=== PATIENT | male | born 1960 | race Caucasian/White ===

== ENCOUNTER 2023-03-30 14:14 | Outpatient (OUT) | payer BC, SELFPAY ==
[2023-03-30 14:40] LABS: Basophils Absolute Auto 0.1 10^3/uL (0.0-0.1); Basophils Percent Auto 0.7 % (0.2-2.0); Eosinophils Absolute Auto 0.1 10^3/uL (0.0-0.7); Eosinophils Percent Auto 1.6 % (0.9-7.0); Hemoglobin 13.5 g/dL (14.0-18.0); Immature Granulocytes Abs Auto 0.01 10^3/uL (0.00-0.03); Immature Granulocytes Pct Auto 0.1 % (0.0-0.5); Mean Corpuscular HGB Conc 33.8 g/dL (29.9-35.2); Mean Corpuscular Hemoglobin 30.4 pg (25.9-34.0); Mean Corpuscular Volume 90.1 fL (80.0-94.0); Monocytes Absolute Auto 0.8 10^3/uL (0.3-0.8); Monocytes Percent Auto 9.9 % (1.7-12.0); Neutrophils Absolute Auto 4.7 10^3/uL (1.4-6.5); Neutrophils Percent Auto 61.7 % (43.0-75.0); Platelet Count 254 10^3/uL (150-450); Red Blood Count 4.44 10^6/uL (4.70-6.10); Red Cell Distribution Width 12.7 % (11.0-15.0); White Blood Count 7.6 10^3/uL (4.0-11.0)
[2023-03-30 14:59] LABS: Estimated Average Glucose 154 mg/dL
[2023-03-30 15:09] LABS: Microalbumin Urine Random <1.3 mg/dL (<=30.0)
[2023-03-30 15:31] LABS: Alanine Aminotransferase 32 U/L (16-63); Albumin Level 3.6 g/dL (3.4-5.0); Alkaline Phosphatase 64 U/L (46-116); Anion Gap 11.8; Aspartate Amino Transferase 29 U/L (15-37); Bilirubin Direct 0.1 mg/dL (0.0-0.2); Bilirubin Total 0.6 mg/dL (0.2-1.0); Calcium 8.9 mg/dL (8.5-10.1); Carbon Dioxide 28.1 mmol/L (21.0-32.0); Chloride 103 mmol/L (98-107); Chol HDL Ratio 2.8; Cholesterol 149 mg/dL (<=200); Estimated GFR (African America >60 (>=60); Estimated GFR (Non-African Ame >60 (>=60); Globulin 3.7 g/dL; Glucose 93 mg/dL (74-106); HDL Cholesterol 54 mg/dL (40-60); Potassium 3.9 mmol/L (3.5-5.1); Sodium 139 mmol/L (136-145); Thyroid Stimulating Hormone 2.301 uIU/mL (0.358-3.740); Total Protein 7.3 g/dL (6.4-8.2); Triglycerides 75 mg/dL (<=150)
[2023-03-30 15:37] LABS: Prostate Specific Antigen Scrn 1.15 ng/mL (<=4.00)
== END 2023-03-30 14:15 | disposition home or self-care (01) ==
PROVIDERS: PCP Family Medicine; Visit Provider Family Medicine
DX: Z00.00 Encounter for general adult medical examination without abnormal findings (principal); E11.65 Type 2 diabetes mellitus with hyperglycemia; Z12.5 Encounter for screening for malignant neoplasm of prostate
CPT/HCPCS: 36415; 80048; 80061; 80076; 82043; 83036; 84443; 85025; G0103

== ENCOUNTER 2023-06-01 22:40 | Emergency (ER) | payer BC, SELFPAY ==
[2023-06-01 22:52] VITALS: BP 137/67; PULSE 81; RESP 22; TEMP 36.8; O2SAT 91; BMI 27.9
--- NOTE | 2023-06-01 23:05 | XR_ITS ---
[address] [address] Patient Name: JUAN C SANDY MRN: [id number] date: 1960 Sex: M Assigned Patient Location: ER Current Patient Location: ER Accession/Order Number: [id number] Exam Date: 06/01/2023 23:15 Report Date: 06/01/2023 23:50 At the request of: JOHN NAIR Procedure: XR chest 1V EXAM: XR chest 1V HISTORY: cough COMPARISON: None. TECHNIQUE: Single AP radiograph of the chest FINDINGS: No pneumothorax, pleural effusion or consolidation. Normal heart size. No acute osseous abnormality. XR/XR chest 1V IMPRESSION: No acute cardiopulmonary process. Electronically authenticated by: ANITA VAZQUEZ Date: 06/01/2023 23:50
--- NOTE | 2023-06-01 23:07 | ED_ITS ---
HPI - URI/Sore Throat General Chief Complaint: Upper Respiratory Infection Stated Complaint: RESPIRATORY ISSUES Time Seen by Provider: 06/01/23 22:57 Source: patient and family Limitations: no limitations History of Present Illness HPI Narrative: cough. Repetitive cough. Coughing so much his abdomen is sore. Has coughing jags. Does not smoke cigarettes. Not short of breath. No fever or nausea/vomiting. Seen at Urgent care and COVID 19 neg MD elicited complaint: Reports cough Related Data Home Medications Medication Instructions Recorded Confirmed albuterol sulfate 90 mcg/actuation inhalation 06/01/23 aerosol inhaler insulin NPH-regular 70-30 U-100 subcut 06/01/23 insulin 100 unit/mL subcutaneous pen (Humulin 70/30 U-100 KwikPen) methylprednisolone 4 mg tablets in mg 06/01/23 a dose pack semaglutide 7 mg tablet (Rybelsus) mg PO 06/01/23 vardenafil 20 mg tablet mg 06/01/23 Allergies Allergy/AdvReac Type Severity Reaction Status Date / Time No Known Drug Allergies Allergy Verified 06/01/23 23:02 Review of Systems ROS Status of ROS 10 or more systems reviewed and unremark able except as noted in history and below PFSH PFS Social History Smoking status: Never smoker Exam Constitutional Vital Signs, click to edit/add: Last Vital Signs Temp 98.0 F 06/02/23 00:39 Pulse 73 06/02/23 00:39 Resp 16 06/02/23 00:39 BP 112/66 06/02/23 00:39 Pulse Ox 93 L 06/02/23 00:39 O2 Del Method Room Air 06/01/23 22:52 Common normals: no apparent distress, average body habitus, oriented x3, no limitations, healthy appearing and alert Eye Common normals: EOMs intact bilaterally and conjunctivae normal Respiratory Common normals: normal respiratory effort, no retractions, no use of accessory muscles and clear to auscultation bilaterally Cardio Common normals: regular rate, regular rhythm, S1 normal heart sound and S2 normal heart sound GI Common normals: Normal to inspection, nondistended, normoactive bowel sounds present, soft to palpation and non-tender Extremity Common normals: normal to inspection and full ROM Neuro Common normals: oriented x3, CN's II-XII intact bilaterally, moves all extremities, no focal motor deficits and no sensory deficits noted Psych Appearance: grossly normal Course Vital Signs Vital signs: Vital Signs Temperature 98.3 F 06/01/23 22:52 Pulse Rate 81 06/01/23 22:52 Respiratory Rate 22 06/01/23 22:52 Blood Pressure 137/67 06/01/23 22:52 Pulse Oximetry 91 L 06/01/23 22:52 Oxygen Delivery Method Room Air 06/01/23 22:52 Temperature 98.0 F 06/02/23 00:39 Pulse Rate 73 06/02/23 00:39 Respiratory Rate 16 06/02/23 00:39 Blood Pressure 112/66 06/02/23 00:39 Pulse Oximetry 93 L 06/02/23 00:39 Oxygen Delivery Method Room Air 06/01/23 22:52 MDM - URI/Sore Throat MDM Narrative Medical decision making narrative: patient presents complaining of repetitive coughing despite using inhaler provider by urgent care. Swab at urgent care neg. Patient in no distress and has dry cough. Abdomen sore from coughing. cxray clear. nasal swab positive for RSV. CT chest with multiple nodules that will require follow up . Patient informed of the importance of follow up. Cough improved after solumedrol. Discharged home with a prescription for prednisone and advised to follow up with his doctor Lab Data Labs: Lab Results 06/01/23 Range/Units 23:15 WBC 12.6 H (4.0-11.0) 10^3/uL RBC 4.13 L (4.70-6.10) 10^6/uL Hgb 12.4 L (14.0-18.0) g/dL Hct 37.8 L (42.0-54.0) % MCV 91.5 (80.0-94.0) fL MCH 30.0 (25.9-34.0) pg MCHC 32.8 (29.9-35.2) g/dL RDW 12.3 (11.0-15.0) % Plt Count 205 (150-450) 10^3/uL MPV 9.2 L (9.5-13.5) fL Neut % (Auto) 74.2 (43.0-75.0) % Lymph % (Auto) 12.4 L (20.5-60.0) % [place] % (Auto) 12.9 H (1.7-12.0) % Eos % (Auto) 0.0 L (0.9-7.0) % Baso % (Auto) 0.2 (0.2-2.0) % Neut # (Auto) 9.4 H (1.4-6.5) 10^3/uL Lymph # (Auto) 1.6 (1.2-3.8) 10^3/uL [place] # (Auto) 1.6 H (0.3-0.8) 10^3/uL Eos # (Auto) 0.0 (0.0-0.7) 10^3/uL Baso # (Auto) 0.0 (0.0-0.1) 10^3/uL Abs Immat Gran (auto) 0.04 H (0.00-0.03) 10^3/uL Imm/Tot Granulo (auto) 0.3 (0.0-0.5) % D-Dimer 0.95 H* (<=0.59) mg/L FEU Sodium 129 L (136-145) mmol/L Potassium 4.4 (3.5-5.1) mmol/L Chloride 96 L (98-107) mmol/L Carbon Dioxide 31.5 (21.0-32.0) mmol/L Anion Gap 5.9 BUN 18.0 (7.0-18.0) mg/dL Creatinine 1.23 (0.70-1.30) mg/dL Est GFR ( Amer) >60 (>=60) Est GFR (Non-Af Amer) 60 (>=60) BUN/Creatinine Ratio 14.6 Glucose 416 H (74-106) mg/dL Calcium 8.1 L (8.5-10.1) mg/dL Troponin I High Sens 7.4 (4.0-76.1) pg/mL NT-Pro-B Natriuret Pep 183.0 (<=900.0) pg/mL Adenovirus (PCR) Not detected (NOT DETECTE) C. pneumoniae DNA (PCR) Not detected (NOT DETECTE) Coronavirus Type OC43 Not detected (NOT DETECTE) Coronavirus Type HKU1 Not detected (NOT DETECTE) Coronavirus Type 229E Not detected (NOT DETECTE) Coronavirus Type NL63 Not detected (NOT DETECTE) Human Metapneumovir PCR Not detected (NOT DETECTE) M. pneumoniae (PCR) Not detected (NOT DETECTE) Parainfluenza PCR Not detected (NOT DETECTE) Parainfluenza 2 (PCR) Not detected (NOT DETECTE) Parainfluenza 3 (PCR) Not detected (NOT DETECTE) Parainfluenza 4 (PCR) Not detected (NOT DETECTE) RSV (RT-PCR) Detected A* (NOT DETECTE) Entero/Rhino (PCR) Not detected (NOT DETECTE) SARS-CoV-2 (PCR) Not detected (NOT DETECTE) Bordetella pertussis (PCR) Not detected (NOT DETECTE) B parapertussis DNA PCR Not detected (NOT DETECTE) Influenza Type A (PCR) Not detected (NOT DETECTE) Influenza Type B (PCR) Not detected (NOT DETECTE) Imaging Data Chest x-ray: Radiologist's impression: [phone] Patient Name: JUAN C SANDY MRN: [id number] date: 1960 Sex: M Assigned Patient Location: ER Current Patient Location: ER Accession/Order Number: [id number] Exam Date: 06/01/2023 23:59 Report Date: 06/02/2023 01:08 At the request of: JOHN NAIR Procedure: CT angio chest EXAM: CHEST WITH IV CONTRAST DATE OF EXAM: 06/01/2023 11:59 PM EST HISTORY: Shortness of breath. Elevated D-dimer. Elevated d-dimer 63-year-old male COMPARISON: This x-ray 06/01/2023 TECHNIQUE: Multiple axial images are taken from the level of the thyroid down through the upper abdomen with the use of IV contrast. Images are then reconstructed in the sagittal and coronal planes. This exam was performed according to our departmental dose-optimization program which includes use of Automated Exposure Control, adjustment of the mA and/or kV according to patient size and/or use of iterative reconstruction technique. Postprocessing was performed as per hospital protocol: Maximum intensity projection (MIPs) Contrast Used: 100 ml of Omnipaque 350 FINDINGS: Distribution Estimator: Unremarkable. Lines and Tubes: None. Lungs: Lungs are adequately expanded. There are multiple nodules demonstrated throughout the right lung with the largest seen in the right upper lobe measuring approximately 10 mm on axial image 32 of series 5. On axial image 44 series 5 there is a 13.5 mm tom-fissural ground glass nodule. Left lung: There is a 15 mm pleural-based nodule in the left lower lobe. Pleura: Normal Thyroid: Normal Aorta: Normal. Pulmonary artery: Pulmonary artery measures within normal. No pulmonary embolus allowing for bolus timing and mixing artifact Heart: Heart measures mildly enlarged with coronary artery calcification. Trachea/Bronchi: Well aerated. No intraluminal masses. Esophagus: Esophagus is within normal limits for the amount of distention. Lymph Nodes: Normal. Chest wall: Normal. Osseous Structures: Normal for patient's age. Subdiaphragm: Subdiaphragmatic abdominal organs included in the [id number] demonstrate fatty infiltration of an enlarged liver CT/CT angio chest IMPRESSION: 1. No CT evidence for acute pulmonary embolus. 2. Stable groundglass nodules are demonstrated bilaterally right greater than left. Please correlate for infectious etiology. Although one of these in the right upper lobe appears to be cavitating which may represent a malignancy versus infection. Differential diagnosis would include a fungal infection such as aspergillosis, lung carcinoma such as non-small cell lung cancer, mycobacterial infection such as TB, bacterial pneumonia and/or etiology such as Mariah's granulomatosis. Short-term follow-up after antibiotics with PET/CT scan and/or biopsy may help better delineate. 3. Cardiomegaly with coronary artery disease. 4. Hepatic steatosis with hepatomegaly. Electronically authenticated by: COMFORT DE OLIVEIRA Date: 06/02/2023 01:08 Dictated By: Comfort De Oliveira M.D. Signed By: 06/02/23 0111 DD/ 0108 TD/TT: Discharge Plan Discharge Chief Complaint: Upper Respiratory Infection Clinical Impression: Pulmonary nodule, RSV bronchiolitis Prescriptions / Home Meds: No Action methylprednisolone 4 mg tablets,dose pack albuterol sulfate 90 mcg/actuation HFA aerosol inhaler INHALATION vardenafil 20 mg tablet Humulin 70/30 U-100 KwikPen 100 unit/mL (70-30) insulin pen SUBCUT Rybelsus 7 mg tablet PO Instructions: Pulmonary Nodules (ED), RSV (Respiratory Syncytial Virus) (ED) Additional Instructions: follow up with Dr Justice next week Referrals: Jay Justice MD [Primary Care Provider] - 1 week
[2023-06-01] MEDS: METHYLPREDNISOLONE SOD SUCC PF 125 MG/2 ML VIAL IVP (23:20)
[2023-06-01 23:21] LABS: Basophils Percent Auto 0.2 % (0.2-2.0); Hematocrit 37.8 % (42.0-54.0); Hemoglobin 12.4 g/dL (14.0-18.0); Immature Granulocytes Abs Auto 0.04 10^3/uL (0.00-0.03); Immature Granulocytes Pct Auto 0.3 % (0.0-0.5); Lymphocytes Absolute Auto 1.6 10^3/uL (1.2-3.8); Lymphocytes Percent Auto 12.4 % (20.5-60.0); Mean Corpuscular HGB Conc 32.8 g/dL (29.9-35.2); Mean Corpuscular Volume 91.5 fL (80.0-94.0); Mean Platelet Volume 9.2 fL (9.5-13.5); Monocytes Absolute Auto 1.6 10^3/uL (0.3-0.8); Monocytes Percent Auto 12.9 % (1.7-12.0); Neutrophils Absolute Auto 9.4 10^3/uL (1.4-6.5); Neutrophils Percent Auto 74.2 % (43.0-75.0); Platelet Count 205 10^3/uL (150-450); Red Blood Count 4.13 10^6/uL (4.70-6.10); Red Cell Distribution Width 12.3 % (11.0-15.0); White Blood Count 12.6 10^3/uL (4.0-11.0)
[2023-06-01 23:23] LABS: Adenovirus NOT DETECTED (NOT DETECTE); Bordetella parapertussis NOT DETECTED (NOT DETECTE); Coronavirus 229E NOT DETECTED (NOT DETECTE); Coronavirus HKU1 NOT DETECTED (NOT DETECTE); Coronavirus NL63 NOT DETECTED (NOT DETECTE); Coronavirus OC43 NOT DETECTED (NOT DETECTE); Human Metapneumovirus NOT DETECTED (NOT DETECTE); Human Rhinovirus/Enterovirus NOT DETECTED (NOT DETECTE); Influenza A NOT DETECTED (NOT DETECTE); Influenza B NOT DETECTED (NOT DETECTE); Mycoplasma pneumoniae NOT DETECTED (NOT DETECTE); Parainfluenza Virus 1 NOT DETECTED (NOT DETECTE); Parainfluenza Virus 2 NOT DETECTED (NOT DETECTE); Parainfluenza Virus 3 NOT DETECTED (NOT DETECTE); Parainfluenza Virus 4 NOT DETECTED (NOT DETECTE); SARS-CoV-2 NOT DETECTED (NOT DETECTE)
[2023-06-01 23:45] LABS: Anion Gap 5.9; BUN Creatinine Ratio 14.6; Calcium 8.1 mg/dL (8.5-10.1); Carbon Dioxide 31.5 mmol/L (21.0-32.0); Chloride 96 mmol/L (98-107); Estimated GFR (African America >60 (>=60); Estimated GFR (Non-African Ame 60 (>=60); Glucose 416 mg/dL (74-106); Potassium 4.4 mmol/L (3.5-5.1); Sodium 129 mmol/L (136-145); Troponin I High Sensitivity 7.4 pg/mL (4.0-76.1)
[2023-06-01 23:47] LABS: D Dimer 0.95 mg/L FEU (<=0.59)
--- NOTE | 2023-06-01 23:48 | CT_ITS ---
The [address] [address] Patient Name: JUAN C SANDY MRN: [id number] date: 1960 Sex: M Assigned Patient Location: ER Current Patient Location: ER Accession/Order Number: [id number] Exam Date: 06/01/2023 23:59 Report Date: 06/02/2023 01:08 At the request of: JOHN NAIR Procedure: CT angio chest EXAM: CHEST WITH IV CONTRAST DATE OF EXAM: 06/01/2023 11:59 PM EST HISTORY: Shortness of breath. Elevated D-dimer. Elevated d-dimer 63-year-old male COMPARISON: This x-ray 06/01/2023 TECHNIQUE: Multiple axial images are taken from the level of the thyroid down through the upper abdomen with the use of IV contrast. Images are then reconstructed in the sagittal and coronal planes. This exam was performed according to our departmental dose-optimization program which includes use of Automated Exposure Control, adjustment of the mA and/or kV according to patient size and/or use of iterative reconstruction technique. Postprocessing was performed as per hospital protocol: Maximum intensity projection (MIPs) Contrast Used: 100 ml of Omnipaque 350 FINDINGS: Highway Safety Engineer: Unremarkable. Lines and Tubes: None. Lungs: Lungs are adequately expanded. There are multiple nodules demonstrated throughout the right lung with the largest seen in the right upper lobe measuring approximately 10 mm on axial image 32 of series 5. On axial image 44 series 5 there is a 13.5 mm tom-fissural ground glass nodule. Left lung: There is a 15 mm pleural-based nodule in the left lower lobe. Pleura: Normal Thyroid: Normal Aorta: Normal. Pulmonary artery: Pulmonary artery measures within normal. No pulmonary embolus allowing for bolus timing and mixing artifact Heart: Heart measures mildly enlarged with coronary artery calcification. Trachea/Bronchi: Well aerated. No intraluminal masses. Esophagus: Esophagus is within normal limits for the amount of distention. Lymph Nodes: Normal. Chest wall: Normal. Osseous Structures: Normal for patient's age. Subdiaphragm: Subdiaphragmatic abdominal organs included in the [id number] demonstrate fatty infiltration of an enlarged liver CT/CT angio chest IMPRESSION: 1. No CT evidence for acute pulmonary embolus. 2. Stable groundglass nodules are demonstrated bilaterally right greater than left. Please correlate for infectious etiology. Although one of these in the right upper lobe appears to be cavitating which may represent a malignancy versus infection. Differential diagnosis would include a fungal infection such as aspergillosis, lung carcinoma such as non-small cell lung cancer, mycobacterial infection such as TB, bacterial pneumonia and/or etiology such as Mariah's granulomatosis. Short-term follow-up after antibiotics with PET/CT scan and/or biopsy may help better delineate. 3. Cardiomegaly with coronary artery disease. 4. Hepatic steatosis with hepatomegaly. Electronically authenticated by: SHASHI DE OLIVEIRA Date: 06/02/2023 01:08
[2023-06-02 00:11] LABS: Respiratory Syncytial Virus DETECTED (NOT DETECTE)
[2023-06-02 00:39] VITALS: BP 112/66; PULSE 73; RESP 16; TEMP 36.7; O2SAT 93
== END 2023-06-02 01:38 | disposition home or self-care (01) ==
PROVIDERS: Emergency Provider Internal Medicine; PCP Family Medicine
DX: J21.0 Acute bronchiolitis due to respiratory syncytial virus (principal); R91.8 Other nonspecific abnormal finding of lung field; R06.02 Shortness of breath; Z79.899 Other long term (current) drug therapy; Z79.4 Long term (current) use of insulin; Z20.822 Contact with and (suspected) exposure to COVID-19
CPT/HCPCS: 0202U; 36415; 71045; 71275; 80048; 83880; 84484; 85025; 85378; 96374; 99285; J2930; Q9967

== ENCOUNTER 2023-11-07 15:51 | Outpatient (OUT) | payer BC, SELFPAY ==
[2023-11-07 16:29] LABS: Estimated Average Glucose 194 mg/dL; Glycohemoglobin A1C 8.4 % (4.5-6.2)
--- OUTSIDE RECORDS SUMMARY | 2023-11-07 16:31 | XMS_ITS | CCD ---
Author Organization [facility] Care Team Providers Care Coding Consultant Name Role Phone NO, PHYSICIAN Unavailable Unavailable Sultana Benson Unavailable Martha Granados Unavailable Martha Delgado Unavailable PACHECO HART Attending Unavailable NADERER, DR JAY Lawson Primary Care Unavailable HIGHLANDER, PACHECO Rivera Admitting Unavailable HIGHLANDER, PACHECO Rivera Attending Unavailable HIGHLANDER, PACHECO Rivera Admitting Unavailable NADERER, DR JAY Lawosn Primary Care Unavailable HIGHLANDER, PACHECO Rivera Attending Unavailable HIGHLANDER, PACHECO Rivera Admitting Unavailable NADERER, DR JAY Lawson Primary Care Unavailable WARFIELD, DR NICKI Mazariegos Consulting Unavailable HIGHLANDER, PACHECO Rivera Consulting Unavailable NADERER, DR JAY Lawson Primary Care Unavailable HIGHLANDER, PACHECO Rivera Admitting Unavailable HIGHLANDER, PACHECO Rivera Attending Unavailable HIGHLANDER, PACHECO Rivera Attending Unavailable HIGHLANDER, PETER Miguel Admitting Unavailable NADERER, DR JAY Lawson Primary Care Unavailable NADERER, DR JAY Lawson Primary Care Unavailable Denny Sheldon Consulting Unavailable HIGHLANDER, PACHECO Rivera Attending Unavailable HIGHLANDER, PACHECO Rivera Admitting Unavailable HIGHLANDER, PACHECO Rivera Consulting Unavailable HIGHLANDER, PACHECO Rivera Attending Unavailable HIGHLANDER, PETER Miguel Admitting Unavailable NADERER, DR JAY Lawson Primary Care Unavailable NADERER, DR JAY Lawson Primary Care Unavailable HIGHLANDER, PACHECO Rivera Attending Unavailable HIGHLANDER, PACHECO Rivera Admitting Unavailable HIGHLANDER, PACHECO Rivera Consulting Unavailable NADERER, DR JAY Lawson Primary Care Unavailable NADERER, DR JAY Lawson Consulting Unavailable NADERER, DR JAY Lawson Attending Unavailable NADERER, DR JAY Lawson Admitting Unavailable NADERER, DR JAY Lawson Primary Care Unavailable NADERER, DR JAY Lawson Consulting Unavailable NADERER, DR JAY Lawson Attending Unavailable NADERER, DR JAY Lawson Admitting Unavailable NADERER, DR JAY Lawson Primary Care Unavailable NADERER, DR JAY Lawson Consulting Unavailable NADERER, DR JAY Lawson Attending Unavailable ABIDA, DR JAY Lawson Admitting Unavailable TANNER, PACHECO Rivera Attending Unavailable PACHECO HART Admitting Unavailable ABIDA, DR JAY Lawson Primary Care Unavailable TANNER, PACHECO Rivera Consulting Unavailable ABIDA, DR JAY Lawson Primary Care Unavailable TANNER, PACHECO Rivera Admitting Unavailable Denny Sheldon Consulting Unavailable TANNER, PACHECO Rivera Attending Unavailable TANNER, PACHECO Rivera Consulting Unavailable ANABEL PÉREZ Consulting Unavailable MARIANA BUCKLEY Consulting Unavailable TANNER, PACHECO Rivera Attending Unavailable ABIDA, DR JAY Lawson Primary Care Unavailable TANNER, PACHECO Rivera Admitting Unavailable TANNER, PACHECO Rivera Attending Unavailable ABIDA, DR JAY Lawson Primary Care Unavailable [facility], PACHECO Rivera Admitting Unavailable Jay Tai MD Primary Care Provider JAY TAI Attending Unavailable ABIDA, JAY Attending Unavailable Medications Current Medications Medication Drug Class(es) Dates Sig (Normalized) Sig (Original) [id number] actuat albuterol 0.09 mg/actuat metered dose inhaler (1 source) beta2-Adrenergic Agonist Start: 3 take 2 puff(s) by inhalation four times daily as needed Albuterol Sulfate HFA 108 (90 Base) MCG/ACT 2 puffs Inhalation 4 times a day prn May, Active atorvastatin 40 mg oral tablet (3 sources) HMG-CoA Reductase Inhibitor Start: 3 take 1 tablet by mouth at bedtime atorvastatin (Lipitor) 40 MG tablet Take 40 mg by mouth at bedtime 0 03/11/2023 Active cephalexin 500 mg oral capsule (1 source) Cephalosporin Antibacterial Start: 1 take 1 capsule by mouth every eight hours Cephalexin 500 MG 1 capsule Orally tid for 10 day(s) Mar, Active clindamycin 300 mg oral capsule (1 source) Lincosamide Antibacterial Start: 2 take 1 capsule by mouth every eight hours Clindamycin HCl 300 MG 1 cap(s) Orally three times a day for 10 day(s) Apr, Active clotrimazole 10 mg/ml topical cream (1 source) Azole Antifungal Start: 1 Clotrimazole 1 % 1 application Externally Twice a day for 7 day(s) May, Active doxycycline monohydrate 100 mg oral capsule (1 source) Tetracycline-class Drug Start: 1 take 1 capsule by mouth every twelve hours Doxycycline Monohydrate 100 MG 1 capsule Orally every 12 hrs for 10 days May, Active 3 ml insulin aspart, human 100 unt/ml pen injector (5 sources) Insulin Analog NovoLOG FlexPen 100 UNIT/ML Subcutaneous Active 3 ml insulin isophane, human 70 unt/ml / insulin, regular, human 30 unt/ml pen injector (3 sources) Insulin inject 40 [IU] by subcutaneous injection in the morning HumuLIN 70/30 KWIKPEN (70-30) 100 UNIT/ML injection Inject 40 Units under the skin in the morning and 40 Units in the evening. Inject before meals. 0 Active methylPREDNISolone 4 mg oral tablet (1 source) Corticosteroid Start: 3 Medrol 4 MG as directed Orally As Directed for 6 days May, Active Semaglutide (1 source) Semaglutide Active tadalafil 5 mg oral tablet (2 sources) Phosphodiesterase 5 Inhibitor Start: 4 take 1 tablet by mouth in the morning tadalafil (Cialis) 5 MG tablet Indications: Erectile dysfunction of organic origin Take 1 tablet (5 mg) by mouth in the morning. 30 tablet 3 08/02/2023 Active Completed/Discontinued Medications Medication Drug Class(es) Dates Sig (Normalized) Sig (Original) amoxicillin 875 mg oral tablet (2 sources) Penicillin-class Antibacterial Start: 08-18-2022 take 1 tablet by mouth every twelve hours Amoxicillin 875 MG 1 capsule Orally Twice a day for 7 days Aug, Not-Taking/PRN cetirizine hydrochloride 10 mg oral tablet (2 sources) Histamine-1 Receptor Antagonist Start: 08-18-2022 take 1 tablet by mouth every twenty-four hours Cetirizine HCl 10 MG 1 tablet Orally Once a day for 14 days Aug, Not-Taking/PRN fluticasone propionate 0.05 mg/actuat metered dose nasal spray (2 sources) Corticosteroid Start: 08-18-2022 take 1 spray(s) nasal route once daily as needed Flonase Allergy Relief 50 MCG/ACT 1 spray in each nostril Nasally Once a day for 14 days Aug, Not-Taking/PRN Start: 08-18-2022 take 1 spray(s) nasa l route once daily Flonase Allergy Relief 50 MCG/ACT 1 spray in each nostril Nasally Once a day for 14 days Aug, Active semaglutide 7 mg oral tablet (3 sources) Start: 05-17-2023 End: 08-02-2023 take 1 tablet by mouth in the morning semaglutide (Rybelsus) 7 MG tablet Indications: Type 2 diabetes mellitus with hyperglycemia (CMS/HCC) Take 1 tablet (7 mg) by mouth in the morning. 30 tablet 2 05/17/2023 08/02/2023 Discontinued vardenafil 20 mg oral tablet (3 sources) Phosphodiesterase 5 Inhibitor Start: 04-10-2023 End: 08-02-2023 take 1 tablet by mouth every twenty-four hours as needed vardenafil (Levitra) 20 MG tablet Take 20 mg by mouth Daily as needed 0 04/10/2023 08/02/2023 Discontinued Problems Active Problems Problem Classification Problem Date Documented Da te Episodic/Chronic Chronic ulcer of skin (2 sources) Non-pressure chronic ulcer of other part of right foot limited to breakdown of skin; Translations: [Non-pressure chronic ulcer of other part of right foot with necrosis of bone] Onset: 07-11-2022 Chronic Diabetes mellitus with complications (20 sources) Ulcer of foot due to type 1 diabetes mellitus; Translations: [Type 1 diabetes mellitus with foot ulcer] Onset: 07-06-2022 Chronic Diabetes mellitus without complication (7 sources) Type 2 diabetes mellitus without complications; Translations: [Type 2 diabetes mellitus without complication] Onset: 03-30-2021 Resolved: 06-06-2021 Chronic Disorders of lipid metabolism (3 sources) Dyslipidemia; Translations: [Hyperlipidemia, unspecified] Onset: 06-06-2023 06-06-2023 Chronic Infective arthritis and osteomyelitis (except that caused by tuberculosis or sexually transmitted disease) (4 sources) Chronic osteomyelitis with draining sinus, right ankle and foot; Translations: [CHRONIC OM DRAIN SINUS RT ANK FOOT] Onset: 06-26-2022 Chronic Other aftercare (1 source) technician terminal and repeater (current) use of insulin; Translations: [CARE HOME CURRENT USE OF INSULIN] Onset: 10-08-2022 Episodic Other lower respiratory disease (3 sources) Multiple nodules of lung; Translations: [Other nonspecific abnormal finding of lung field] Onset: 06-06-2023 06-06-2023 Episodic Other male genital disorders (5 sources) Secondary erectile dysfunction; Translations: [Male erectile dysfunction, unspecified] Onset: 06-06-2023 06-06-2023 Chronic Other nutritional; endocrine; and metabolic disorders (1 source) Obesity, unspecified; Translations: [OBESITY UNSPECIFIED] Onset: 08-14-2022 Chronic Other upper respiratory disease (3 sources) Allergic rhinitis; Translations: [Other allergic rhinitis] Chronic Other upper respiratory infections (1 source) Acute upper respiratory infection, unspecified Episodic Otitis media and related conditions (1 source) Other acute nonsuppurative otitis media, left ear Episodic Peripheral and visceral atherosclerosis (1 source) Peripheral vascular disease, unspecified; Translations: [PERIPHERAL VASCULAR DISEASE UNS] Onset: 05-17-2022 Chronic Pneumonia (except that caused by tuberculosis or sexually transmitted disease) (3 sources) Infective pneumonia; Translations: [Pneumonia, unspecified organism] Onset: 06-06-2023 06-06-2023 Episodic Unclassified (1 source) CONTACT W/AND (SUSP) EXPOS COVID-19; Translations: [CONTACT W/AND (SUSP) EXPOS COVID-19] Onset: 06-25-2022 Viral infection (3 sources) Respiratory syncytial virus infection; Translations: [Other specified viral diseases] Onset: 06-06-2023 Resolved: 08-02-2023 06-06-2023 Episodic Past or Other Problems Problem Classification Problem Date Documented Date Episodic/Chronic Complications of surgical procedures or medical care (1 source) Other complications of procedures, not elsewhere classified, initial encounter; Translations: [OTH COMPLICATIONS PROC NEC INITIAL] Onset: 07-18-2022 Episodic Open wounds of extremities (1 source) Unspecified open wound of unspecified toe(s) with damage to nail, initial encounter; Translations: [Avulsion of toenail, initial encounter S91.209A] Onset: 03-30-2021 Resolved: 03-30-2021 Episodic Other circulatory disease (4 sources) Other specified symptoms and signs involving the circulatory and respiratory systems; Translations: [OTH SPEC SX SIGNS INVLV CIRC RS] Onset: 05-12-2022 Episodic Other connective tissue disease (4 sources) Pain in right foot; Translations: [PAIN IN RIGHT FOOT] Onset: 06-20-2022 Episodic Other nutritional; endocrine; and metabolic disorders (1 source) Body mass index (BMI) 29.0-29.9, adult; Translations: [BODY MASS INDEX BMI 29.0-29.9 ADULT] Onset: 07-06-2022 Episodic Other screening for suspected conditions (not mental disorders or infectious disease) (1 source) Encounter for screening for malignant neoplasm of prostate; Translations: [ENC SCREEN MALIG NEOPLASM PROSTATE] Onset: 12-01-2021 Episodic Other skin disorders (1 source) Onycholysis Onset: 06-06-2021 Resolved: 06-06-2021 Episodic Unclassified (1 source) Contact with and (suspected) exposure to covid-19 Z20.822 Results Test Name Value Interpretation Reference Range Facility COVID + FLU Quick Testingon 05-30-2023 SARS-CoV-2 (COVID-19) RNA JO+probe Ql (Unsp spec) Negative [facility] Other COVID + FLU Quick Testing Negative [employer] [facility] Other GLYCOHEMOGLOBIN A1Con 2022 ADA RECOMMENDATION SEE BELOW Normal [facility] Comment on above: Result Comment: ADA RECOMMENDED LIMIT 4.0 - 6.0 ADA THERAPEUTIC TARGET < 7.0 ACTION SUGGESTED > 7.0 Performed By: #### G STAIN #### [facility] [address] [place] [address] Dr. Manoj Lala Glucose [Mass/Vol] 249 mg/dL Normal [facility] Comment on above: Performed By: #### G STAIN #### [facility] [address] [address] [address] Manoj Lala HbA1c (Bld) [Mass fraction] 10.3 % Critically high 4.5-6.2 [facility] Comment on above: Performed By: #### G STAIN #### [facility] [address] [address] [address] Manoj Lala ACID FAST SMEAR AND CXon Acid Fast Culture Negative Normal [facility] Comment on above: Result Comment: No a sly fast bacilli isolated after 6 weeks. Performed By: #### A FB #### [facility] [address] [place] [address] Dr. Manoj Lala Acid Fast Smear Negative Normal [facility] Comment on above: Performed By: #### A FB #### [facility] [address] [place] [address] Dr. Manoj Lala [employer] Specimen Processing Tissue Grinding [facility] Comment on above: Performed By: #### A FB #### [facility] [address] [place] [address] Dr. Manoj Lala FUNGAL CULTUREon 07-26-2022 Fungus (Mycology) Culture Final report [facility] Comment on above: Performed By: #### C XFUN #### [facility] [address] [place] [address] Dr. Manoj Lala Fungus Stain Final report [facility] Comment on above: Performed By: #### C XFUN #### [facility] [address] [place] [address] Dr. Manoj Lala Result 1 Comment Normal [facility] Comment on above: Result Comment: GUCCI/ Calcofluor preparation: no fungus observed. Performed By: #### C XFUN #### [facility] [address] [place] [address] Dr. Manoj Lala Result Comment: No y east or mold isolated after 4 weeks. CULTURE ANAEROBICon 06-26-19 23 CULTURE ANAEROBIC Culture Observations: No growth of anaerobes at 72 hours. Normal [facility] Comment on above: Performed By: #### C VDTBH #### [facility] [address] [place] [address] Dr. Manoj Lala CULTURE OTHERon 06-26-2022 CULTURE OTHER Culture Observations: Light growth of normal skin kurtis Normal [facility] Comment on above: Performed By: #### C VDTBH #### [facility] [address] [place] [address] Dr. Manoj Lala GRAM STAINon 06-26-2022 COMMENTS NO ORGANISMS OBSERVED [facility] Comment on above: Performed By: #### G STAIN #### [facility] [address] [place] [address] Dr. Manoj Lala DIPHTHEROIDS Normal [facility] Comment on above: Performed By: #### G STAIN #### [facility] [address] [address] [address] Manoj Lala EPITHELIALS RARE Normal [facility] Comment on above: Performed By: #### G STAIN #### [facility] [address] [address] [address] Manoj Lala FUNGAL ELEMENTS Normal [facility] Comment on above: Performed By: #### G STAIN #### [facility] [address] [address] [address] Manoj Lala GRAM NEG BACILLI Normal [facility] Comment on above: Performed By: #### G STAIN #### [facility] [address] [address] [address] Manoj Lala GRAM NEG DIPPLOCOCCI Normal [facility] Comment on above: Performed By: #### G STAIN #### [facility] [address] [address] [address] Manoj Lala GRAM POS BACILLI Normal [facility] Comment on above: Performed By: #### G STAIN #### [facility] [address] [address] [address] Manoj Lala GRAM POSITIVE COCCI Normal [facility] Comment on above: Performed By: #### G STAIN #### [facility] [address] [address] [address] Manoj Lala GRAM STAIN SOURCE Rt Hallux Bone Normal [facility] Comment on above: Performed By: #### G STAIN #### [facility] [address] [address] [address] Manoj Lala GS_DIPTH Normal [facility] Comment on above: Performed By: #### G STAIN #### [facility] [address] [address] [address] Manoj Lala WBC NONE SEEN Normal [facility] Comment on above: Performed By: #### G STAIN #### [facility] [address] [address] [address] Manoj Lala POINT OF CARE GLUCOSEon 0 Glucose [Mass/Vol] 244 mg/dL Critically high 74-106 [facility] Comment on above: Performed By: #### G STAIN #### [facility] [address] [address] [address] Manoj Lala Glucose [Mass/Vol] 238 mg/dL Critically high 74-106 [facility] Comment on above: Performed By: #### P OCGLUC #### [facility] [address] [address] [address] Manoj Lala [facility] SARS-CoV-2 (COVID-19) RNA JO+probe Ql (Unsp spec) Not detected Normal NOT DETECTED [facility] Comment on above: Result Comment: This test is not yet approved or cleared by the [place] FDA. When there are no FDA-approved or cleared tests available, and other criteria are met, FDA can make tests available under an emergency access mechanism called an Emergency Use Authorization (EUA). The EUA for this test is supported by the [place] of Health and Human Service's (HHS's) declaration that circumstances exist to justify the emergency use of in vitro diagnostics for the detection and/or diagnosis of the virus that causes COVID-19. This EUA will remain in effect (meaning this test can be used) for the duration of the COVID-19 declaration justifying emergency of IVDs, unless it is terminated or revoked by FDA (after which the test may no longer be used). When diagnostic testing is negative, the possibility of a false negative should be considered in the context of a patient's recent exposures and the presence of clinical signs and symptoms consistent with SARS-CoV-2. Performed By: #### C VDTBH #### [facility] [address] [place] [address] Dr. Manoj Lala PROF CHEM 8 (BAS METB)on Anion gap [Moles/Vol] 10.8 mmol/L Normal [facility] Comment on above: Performed By: #### B MP #### [facility] [address] [address] [address] Manoj Lala Calcium [Mass/Vol] 8.8 mg/dL Normal 8.5-10.1 [facility] Comment on above: Performed By: #### B MP #### [facility] [address] [address] [address] Manoj Lala Chloride [Moles/Vol] 102 mmol/L Normal 98-107 [facility] Comment on above: Performed By: #### B MP #### [facility] [address] [address] [address] Manoj Lala CO2 [Moles/Vol] 28.5 mmol/L Normal 21.0-32.0 [facility] Comment on above: Performed By: #### B MP #### [facility] [address] [address] [address] Manoj Lala Creatinine [Mass/Vol] 1.02 mg/dL Normal 0.70-1.30 [facility] Comment on above: Performed By: #### B MP #### [facility] [address] [address] [address] Manoj Lala EGFR-AF BURUNDIAN >60 Normal >=60 [facility] Comment on above: Performed By: #### B MP #### [facility] [address] [address] [address] Manoj Lala EGFR-NON AF [place]DIAN >60 Normal >=60 [facility] Comment on above: Performed By: #### B MP #### [facility] [address] [address] [address] Manoj Lala Glucose [Mass/Vol] 202 mg/dL Critically high 74-106 [facility] Comment on above: Performed By: #### B MP #### [facility] [address] [address] [address] Manoj Lala Potassium [Moles/Vol] 4.3 mmol/L Normal 3.5-5.1 [facility] Comment on above: Performed By: #### B MP #### [facility] [address] [place] [address] Dr. Manoj Lala Sodium [Moles/Vol] 137 mmol/L Normal 136-145 [facility] Comment on above: Performed By: #### B MP #### [facility] [address] [address] [address] Manoj Lala Urea nitrogen [Mass/Vol] 18.0 mg/dL Normal 7.0-18.0 [facility] Comment on above: Performed By: #### B MP #### [facility] [address] [place] [address] Dr. Manoj Lala Urea nitrogen/Creatinine [Mass ratio] 17.6 mg/mg Normal [facility] Comment on above: Performed By: #### B MP #### [facility] [address] [place] [address] Dr. Manoj Lala GLYCOHEMOGLOBIN A1Con 2021 ADA RECOMMENDATION SEE BELOW Normal [facility] Comment on above: Result Comment: ADA RECOMMENDED LIMIT 4.0 - 6.0 ADA THERAPEUTIC TARGET < 7.0 ACTION SUGGESTED > 7.0 Performed By: #### A 1C #### [facility] [address] [place] [address] Dr. Manoj Lala Glucose [Mass/Vol] 243 mg/dL Normal [facility] Comment on above: Performed By: #### A 1C #### [facility] [address] [place] [address] Dr. Manoj Lala HbA1c (Bld) [Mass fraction] 10.1 % Critically high 4.5-6.2 [facility] Comment on above: Performed By: #### A 1C #### [facility] [address] [place] [address] Dr. Manoj Lala CBC AUTO DIFFon 11-28-2021 BASO # 0.0 103/ul Normal 0.0-0.1 [facility] Comment on above: Performed By: #### C VDTBH #### [facility] [address] [place] [address] Dr. Manoj Lala Basophils/100 WBC (Bld) 0.5 % Normal 0.2-2.0 [facility] Comment on above: Performed By: #### C VDTBH #### [facility] [address] [place] [address] Dr. Manoj Lala EO # 0.1 103/ul Normal 0.0-0.7 [facility] Comment on above: Performed By: #### C VDTBH #### [facility] [address] [place] [address] Dr. Manoj Lala Eosinophils/100 WBC (Bld) 1.3 % Normal 0.9-7.0 [facility] Comment on above: Performed By: #### C VDTBH #### [facility] [address] [place] [address] Dr. Manoj Lala Erythrocyte distribution width (RBC) [Ratio] 12.8 % Normal 11.0-15.0 [facility] Comment on above: Performed By: #### C VDTBH #### [facility] [address] [place] [address] Dr. Manoj Lala Hematocrit (Bld) [Volume fraction] 41.4 % Critically low 42.0-54.0 [facility] Comment on above: Performed By: #### C VDTBH #### [facility] [address] [place] [address] Dr. Manoj Lala Hemoglobin (Bld) [Mass/Vol] 13.4 g/dL Critically low 14.0-18.0 [facility] Comment on above: Performed By: #### C VDTBH #### [facility] [address] [place] [address] Dr. Manoj Lala IG # 0.03 10e3/ul Normal 0.00-0.03 [facility] Comment on above: Performed By: #### C VDTBH #### [facility] [address] [place] [address] Dr. Manoj Lala IG % 0.4 % Normal 0.0-0.5 [facility] Comment on above: Performed By: #### C VDTBH #### [facility] [address] [place] [address] Dr. Manoj Lala LYMPH # 1.9 103/ul Normal 1.2-3.8 [facility] Comment on above: Performed By: #### C VDTBH #### [facility] [address] [place] [address] Dr. Manoj Lala Lymphocytes/100 WBC (Bld) 25.1 % Normal 20.5-60.0 [facility] Comment on above: Performed By: #### C VDTBH #### [facility] [address] [place] [address] Dr. Manoj Lala MANUAL DIFF REQ NO Normal [facility] Comment on above: Performed By: #### C VDTBH #### [facility] [address] [place] [address] Dr. Manoj Lala MCH (RBC) [Entitic mass] 29.6 pg Normal 25.9-34.0 [facility] Comment on above: Performed By: #### C VDTBH #### [facility] [address] [place] [address] Dr. Manoj Lala MCHC (RBC) [Mass/Vol] 32.4 g/dL Normal 29.9-35.2 [facility] Comment on above: Performed By: #### C VDTBH #### [facility] [address] [place] [address] Dr. Manoj Lala MCV (RBC) [Entitic vol] 91.6 fL Normal 80.0-94.0 [facility] Comment on above: Performed By: #### C VDTBH #### [facility] [address] [place] [address] Dr. Manoj Lala MONO # 0.6 103/ul Normal 0.3-0.8 [facility] Comment on above: Performed By: #### C VDTBH #### [facility] [address] [place] [address] Dr. Manoj Lala Monocytes/100 WBC (Bld) 8.3 % Normal 1.7-12.0 [facility] Comment on above: Performed By: #### C VDTBH #### [facility] [address] [place] [address] Dr. Manoj Lala NEUT # 4.8 103/ul Normal 1.4-6.5 [facility] Comment on above: Performed By: #### C VDTBH #### [facility] [address] [place] [address] Dr. Manoj Lala Neutrophils/100 WBC (Bld) 64.4 % Normal 43.0-75.0 [facility] Comment on above: Performed By: #### C VDTBH #### [facility] [address] [address] [address] Manoj Lala Platelet mean volume (Bld) [Entitic vol] 9.9 fL Normal 9.5-13.5 [facility] Comment on above: Performed By: #### C VDTBH #### [facility] [address] [address] [address] Manoj Lala PLT 299 103/ul Normal 150-450 [facility] Comment on above: Performed By: #### C VDTBH #### [facility] [address] [place] [address] Dr. Maonj Lala RBC 4.52 106/ul Critically low 4.70-6.10 [facility] Comment on above: Performed By: #### C VDTBH #### [facility] [address] [place] [address] Dr. Manoj Lala WBC 7.5 103/ul Normal 4.0-11.0 [facility] Comment on above: Performed By: #### C VDTBH #### [facility] [address] [place] [address] Dr. Manoj Lala GLYCOHEMOGLOBIN A1Con 2021 ADA RECOMMENDATION SEE BELOW Normal [facility] Comment on above: Result Comment: ADA RECOMMENDED LIMIT 4.0 - 6.0 ADA THERAPEUTIC TARGET < 7.0 ACTION SUGGESTED > 7.0 Performed By: #### A 1C #### [facility] [address] [place] [address] Dr. Manoj Lala Glucose [Mass/Vol] 223 mg/dL Normal [facility] Comment on above: Performed By: #### A 1C #### [facility] [address] [place] [address] Dr. Manoj Lala HbA1c (Bld) [Mass fraction] 9.4 % Critically high 4.5-6.2 [facility] Comment on above: Performed By: #### A 1C #### [facility] [address] [place] [address] Dr. Manoj Lala LIPID PROFILEon 11-28-2021 CHOL-HDL RATIO NORM SEE BELOW Normal [facility] Comment on above: Result Comment: 3.3 - 4.4 LOW RISK 4.4 - 7.1 AVERAGE RISK 7.1 - 11.0 MODERATE RISK >11.0 HIGH RISK Performed By: #### C VDTBH #### [facility] [address] [address] [address] Manoj Lala Cholesterol [Mass/Vol] 134 mg/dL Normal <=200 [facility] Comment on above: Performed By: #### C VDTBH #### [facility] [address] [address] [address] Manoj Lala Cholesterol in HDL [Mass/Vol] 41 mg/dL Normal 40-60 [facility] Comment on above: Performed By: #### C VDTBH #### [facility] [address] [address] [address] Manoj Lala Cholesterol in LDL [Mass/Vol] 69.0 mg/dL Normal [facility] Comment on above: Performed By: #### C VDTBH #### [facility] [address] [address] [address] Manoj Lala Cholesterol.total/Ch olesterol in HDL [Mass ratio] 3.3 {ratio} Normal [facility] Comment on above: Performed By: #### C VDTBH #### [facility] [address] [address] [address] Manoj Lala HDL NORMAL > or = 60 mg/dl - LOW CARDIOVASCULAR RISK <40 mg/dl - HIGH CARDIOVASCULAR RISK Normal [facility] Comment on above: Performed By: #### C VDTBH #### [facility] [address] [address] [address] Manoj Lala LDL CALC NORMAL SEE BELOW Normal [facility] Comment on above: Result Comment: <100 mg/dl OPTIMAL 100 - 129 mg/dl NEAR OR ABOVE OPTIMAL 130 - 159 mg/dl BORDERLINE HIGH 160 - 189 mg/dl HIGH >190 mg/dl VERY HIGH Performed By: #### C VDTBH #### [facility] [address] [place] [address] Dr. Manoj Lala Triglyceride [Mass/Vol] 120 mg/dL Normal <=150 [facility] Comment on above: Performed By: #### C VDTBH #### [facility] [address] [place] [address] Dr. Manoj Lala VLDL CALC 24.0 mg/dL Normal [facility] Comment on above: Performed By: #### C VDTBH #### [facility] [address] [place] [address] Dr. Manoj Lala LIVER PROFILEon 11-28-2021 Albumin [Mass/Vol] 3.5 g/dL Normal 3.4-5.0 [facility] Comment on above: Performed By: #### C VDTBH #### [facility] [address] [place] [address] Dr. Manoj Lala Albumin/Globulin [Mass ratio] 0.9 {ratio} Normal [facility] Comment on above: Performed By: #### C VDTBH #### [facility] [address] [place] [address] Dr. Manoj Lala ALP [Catalytic activity/Vol] 78 U/L Normal 46-116 [facility] Comment on above: Performed By: #### C VDTBH #### [facility] [address] [place] [address] Dr. Manoj Lala ALT [Catalytic activity/Vol] 44 U/L Normal 16-63 [facility] Comment on above: Performed By: #### C VDTBH #### [facility] [address] [place] [address] Dr. Manoj Lala AST [Catalytic activity/Vol] 24 U/L Normal 15-37 [facility] Comment on above: Performed By: #### C VDTBH #### [facility] [address] [place] [address] Dr. Manoj Lala BILI, CONJUGATED 0.1 mg/dL Normal 0.0-0.2 [facility] Comment on above: Performed By: #### C VDTBH #### [facility] [address] [place] [address] Dr. Manoj Lala Bilirubin [Mass/Vol] 0.4 mg/dL Normal 0.2-1.0 [facility] Comment on above: Performed By: #### C VDTBH #### [facility] [address] [place] [address] Dr. Manoj Lala Globulin (S) [Mass/Vol] 3.7 g/dL Normal [facility] Comment on above: Performed By: #### C VDTBH #### [facility] [address] [place] [address] Dr. Manoj Lala Protein [Mass/Vol] 7.2 g/dL Normal 6.4-8.2 [facility] Comment on above: Performed By: #### C VDTBH #### [facility] [address] [place] [address] Dr. Manoj Lala MICROALBUMIN, RAND URon - mALB <1.3 Normal <=30.0 [facility] Comment on above: Performed By: #### M ALBR #### [facility] [address] [place] [address] Dr. Manoj Lala PROF CHEM 8 (BAS METB)on Anion gap [Moles/Vol] 11.1 mmol/L Normal [facility] Comment on above: Performed By: #### C VDTBH #### [facility] [address] [place] [address] Dr. Manoj Lala Calcium [Mass/Vol] 8.9 mg/dL Normal 8.5-10.1 [facility] Comment on above: Performed By: #### C VDTBH #### [facility] [address] [place] [address] Dr. Manoj Lala Chloride [Moles/Vol] 101 mmol/L Normal 98-107 [facility] Comment on above: Performed By: #### C VDTBH #### [facility] [address] [place] [address] Dr. Manoj Lala CO2 [Moles/Vol] 29.1 mmol/L Normal 21.0-32.[address] [facility] Comment on above: Performed By: #### C VDTBH #### [facility] [address] [address] [address] Manoj Lala Creatinine [Mass/Vol] 1.09 mg/dL Normal 0.70-1.30 [facility] Comment on above: Performed By: #### C VDTBH #### [facility] [address] [address] [address] Maonj Lala EGFR-AF BURUNDIAN >60 Normal >=60 [facility] Comment on above: Performed By: #### C VDTBH #### [facility] [address] [address] [address] Manoj Lala EGFR-NON AF BURUNDIAN >60 Normal >=60 [facility] Comment on above: Performed By: #### C VDTBH #### [facility] [address] [place] [address] Dr. Manoj Lala Glucose [Mass/Vol] 464 mg/dL Critically high 74-106 [facility] Comment on above: Performed By: #### C VDTBH #### [facility] [address] [address] [address] Manoj Lala Potassium [Moles/Vol] 4.2 mmol/L Normal 3.5-5.1 [facility] Comment on above: Performed By: #### C VDTBH #### [facility] [address] [place] [address] Dr. Manoj Lala Sodium [Moles/Vol] 137 mmol/L Normal 136-145 [facility] Comment on above: Performed By: #### C VDTBH #### [facility] [address] [address] [address] Mnaoj Lala Urea nitrogen [Mass/Vol] 19.0 mg/dL Critically high 7.0-18.0 [facility] Comment on above: Performed By: #### C VDTBH #### [facility] [address] [address] [address] Manoj Lala Urea nitrogen/Creatinine [Mass ratio] 17.4 mg/mg Normal [facility] Comment on above: Performed By: #### C VDTBH #### [facility] [address] [place] [address] Dr. Manoj Lala TSHon 11-28-2021 TSH 1.981 uIU/mL Normal 0.358-3.740 [facility] Comment on above: Performed By: #### C VDTBH #### [facility] [address] [place] [address] Dr. Manoj Lala TSH RANGE SEE BELOW Normal [facility] Comment on above: Result Comment: <0.3 4 UIU/ml HYPERTHYROID 0.34-5.60 UIU/ml EUTHYROID >5.60 UIU/ml HYPOTHYROID Performed By: #### C VDTBH #### [facility] [address] [place] [address] Dr. Manoj Lala Aerobic Cultureon 06-06-2021 Aerobic Culture SITE: LEFT TOE ORGANISM: Staphylococcus aureus (O:STAAUR) Quantity of Growth Heavy Growth ORGANISM: Enterococcus faecalis (O:ENTFAC) Quantity of Growth Heavy Growth SITE: LEFT TOE ORGANISM: Bacteroides fragilis (O:BACFRA) Comments Sent to [facility] for Testing Quantity of Growth Moderate Growth Minimum inhibitory concentration Ampicillin Sulbact 16 Intermediate Metronidazole 0.5 Susceptible Ertapenem 4 Susceptible Bacteroides spp. are intrinsically resistant to ampicillin, penicillin, and aminoglycosides. Testing performed at [facility] SITE: LEFT TOE Gram Stain Result Rare White Blood Cells Rare Gram Positive Cocci Aerobic AN Charge (PC45) ------ SUSCEPTIBILITY ----- ORGANISM: O:STAAUR ANTIBIOTIC INTERPRETATION AN Amoxacillin/K Clavulanate S <4/2 Ampicillin PIYUSH 8 Ampicillin/Sulbacta m S <8/4 Azithromycin S <2 Cefazolin S <8 Ceftaroline S <0.5 Ceftriaxone S <8 Ciprofloxacin S <1 Clindamycin S <0.5 Daptomycin S <1 Erythromycin S <0.25 Levofloxacin S <1 Linezolid S <2 Meropenem S <4 Oxacillin S 0.5 Penicillin PIYUSH 8 Piperacillin/Tazoba ctam S <4 Rifampin S <1 Tetracycline S <4 Trimethoprim/Sulfam ethoxazole S <0.5/9.5 Vancomycin S 1 Aerobic AN Charge (PC45) ------ SUSCEPTIBILITY ----- ORGANISM: O:ENTFAC ANTIBIOTIC INTERPRETATION AN Ampicillin S <2 Daptomycin S <1 Erythromycin R >4 Linezolid S <2 Penicillin S 8 Rifampin R >2 Vancomycin S 1 S = SUSCEPTIBLE I = INTERMEDIATE R = RESISTANT BLANK = DATA NOT AVAILABLE, OR DRUG NOT ADVISABLE OR TESTED R* = RESISTANCE DUE TO EXTENDED SPECTRUM BETA-LACTAMASES ESBL = EXTENDED SPECTRUM BETA-LACTAMASE TFG = THYMIDINE-DEPENDENT STRAIN PIYUSH = BETA-LACTAMASE POSITIVE IB = INDUCIBLE BETA-LACTAMASE. APPEARS IN PLACE OF 'S' WITH SPECIES KNOWN TO POSSESS INDUCIBLE BETA-LACTAMASES. POTENTIALLY THEY MAY BECOME RESISTANT TO ALL B-LACTAM DRUGS. PERFORMED BY: [place] [address] PATHOLOGIST [employer]ATOR MARIELLA KWOK M.D. [facility] Comment on above: Performed By: #### G S, AERC #### [facility] [address] [place] [address] Gram Stainon 06-06-2021 Microscopic observation Gram stain Nom (Unsp spec) SITE: LEFT TOE Gram Stain Result Rare White Blood Cells Rare Gram Positive Cocci PERFORMED BY: [place] [address] PATHOLOGIST [employer]ATOR MARIELLA KWOK M.D. [facility] Comment on above: Performed By: #### G S, AERC #### [facility] [address] [place] [address] Physician Orderon 02-24-2020 Physician Order [id number]#1.00CD:127 [facility] Reference Lab Reporton 02-23 Reference Lab Report [id number]#1.00CD:127 [facility] Physician Orderon 02-19-2020 Physician Order [id number]#1.00CD:127 [facility] Physician Orderon 01-06-2020 Physician Order [id number] 73#1.00CD:127 [facility] Reference Lab Reporton 01-05 Reference Lab Report [id number] 17#1.00CD:127 [facility] Physician Orderon 01-01-2020 Physician Order [id number]#1.00CD:127 [facility] Vital Signs Date Time Vital Sign Value Performing Clinician Facility 08-02-2023 14:48-0500 Body height 180.3 cm Jay Tai MD Work Phone: [facility] 08-02-2023 14:48-0500 Body mass index (BMI) [Ratio] 28.59 kg/m2 Jay Tai MD Work Phone: [facility] 08-02-2023 14:48-0500 Body temperature 96.91 [degF] Jay Tai MD Work Phone: [facility] 08-02-2023 14:48-0500 Body weight 92.99 kg Jay Tia MD Work Phone: [facility] 08-02-2023 14:48-0500 Diastolic blood pressure 70 mm[Hg] Jay Tai MD Work Phone: [facility] 08-02-2023 14:48-0500 Heart rate 90 /min Jay Tai MD Work Phone: [facility] 08-02-2023 14:48-0500 SaO2% (BldA) [Mass fraction] 100 % Jay Tai MD Work Phone: [facility] 08-02-2023 14:48-0500 Systolic blood pressure 128 mm[Hg] Jay Tai MD Work Phone: [facility] 05-30-2023 17:20-0500 Body height 180.34 cm Sultana Kelley Other [facility] Other 05-30-2023 17:20-0500 Body mass index (BMI) [Ratio] 28.59 kg/m2 Sultana Kelley Other [facility] Other 05-30-2023 17:20-0500 Body temperature 99.1 [degF] Sultana Benson Other [facility] Other 05-30-2023 17:20-0500 Body weight 92.99 kg Sultana Alarconmond Other [facility] Other 05-30-2023 17:20-0500 Diastolic blood pressure 72 mm[Hg] Sultana Alarconmond Other [facility] Other 05-30-2023 17:20-0500 Respiratory rate 18 /min Sultana Alarconmond Other [facility] Other 05-30-2023 17:20-0500 SaO2% (BldA) [Mass fraction] 96 % Sultana Alarconmond Other [facility] Other 05-30-2023 17:20-0500 Systolic blood pressure 118 mm[Hg] Sultana Kelley Other [facility] Other 08-18-2022 09:15-0500 Body height 180.34 cm Martha Delgado Other [facility] Other 08-18-2022 09:15-0500 Body mass index (BMI) [Ratio] 27.89 kg/m2 Martha Delgado Other [facility] Other 08-18-2022 09:15-0500 Body temperature 97.7 [degF] Martha Danny Other [facility] Other 08-18-2022 09:15-0500 Body weight 90.72 kg Martha Delgado Other [facility] Other 08-18-2022 09:15-0500 Respiratory rate 18 /min Martha Delgado Other [facility] Other 08-18-2022 09:15-0500 SaO2% (BldA) [Mass fraction] 99 % Martha Danny Other [facility] Other 04-19-2022 15:25-0400 Body height 180.34 cm Sultana Alarconmond Other [facility] Other 04-19-2022 15:25-0400 Body mass index (BMI) [Ratio] 27.89 kg/m2 Sultana Kelley Other [facility] Other 04-19-2022 15:25-0400 Body temperature 98.2 [degF] Sultana Alarconmond Other [facility] Other 04-19-2022 15:25-0400 Body weight 90.72 kg Sultana Kelley Other [facility] Other 04-19-2022 15:25-0400 Diastolic blood pressure 73 mm[Hg] Sultana Kelley Other [facility] Other 04-19-2022 15:25-0400 Respiratory rate 18 /min Sultana Kelley Other [facility] Other 04-19-2022 15:25-0400 SaO2% (BldA) [Mass fraction] 97 % Sultana Benson Other [facility] Other 04-19-2022 15:25-0400 Systolic blood pressure 118 mm[Hg] Sultana Alarconmond Other [facility] Other 06-06-2021 11:05-0500 Body height 180.34 cm Martha Ginty Other [facility] Other 06-06-2021 11:05-0500 Body mass index (BMI) [Ratio] 31.8 kg/m2 Martha Ginty Other [facility] Other 06-06-2021 11:05-0500 Body temperature 96.9 [degF] Martha Ginty Other [facility] Other 06-06-2021 11:05-0500 Body weight 103.42 kg Martha Ginty Other [facility] Other 06-06-2021 11:05-0500 Diastolic blood pressure 80 mm[Hg] Martha Ginty Other [facility] Other 06-06-2021 11:05-0500 Respiratory rate 18 /min Martha Ginty Other [facility] Other 06-06-2021 11:05-0500 SaO2% (BldA) [Mass fraction] 99 % Martha Ginty Other [facility] Other 06-06-2021 11:05-0500 Systolic blood pressure 144 mm[Hg] Martha Ginty Other [facility] Other 03-30-2021 18:20-0400 Body height 180.34 cm Sultana Benson Other [facility] Other 03-30-2021 18:20-0400 Body mass index (BMI) [Ratio] 31.8 kg/m2 Sultana Benson Other [facility] Other 03-30-2021 18:20-0400 Body temperature 97.7 [degF] Sultana Benson Other [facility] Other 03-30-2021 18:20-0400 Body weight 103.42 kg Sultana Benson Other [facility] Other 03-30-2021 18:20-0400 Diastolic blood pressure 82 mm[Hg] Sultana Benson Other [facility] Other 03-30-2021 18:20-0400 Respiratory rate 18 /min Sultana Benson Other [facility] Other 03-30-2021 18:20-0400 SaO2% (BldA) [Mass fraction] 95 % Sultana Benson Other [facility] Other 03-30-2021 18:20-0400 Systolic blood pressure 131 mm[Hg] Sultana Alarconmond Other [facility] Other Encounters Encounter Date Encounter Type Care Provider Facility Start: 08-02-2023 End: 08-02-2023 ambulatory JAY TAI Not Available Start: 08-02-2023 End: 08-02-2023 Office outpatient visit 15 minutes Jay Tai MD Work Phone: [facility] Comment on above: Type 2 diabetes kojo itus with hyperglycemia, with long-term current use of insulin (CMS/HCC) (Primary Dx); Erectile dysfunction of organic origin; Type 2 diabetes mellitus with other specified complication, with long-term current use of insulin (CMS/HCC); Type 2 diabetes mellitus with right eye affected by mild nonproliferative retinopathy without macular edema, with long-term current use of insulin (CMS/HCC) Start: 08-02-2023 Ingrid flowssabas Tai MD Work Phone: [facility] Start: 08-02-2023 [facility] flowssabas Tai MD Work Phone: [facility] Start: 06-06-2023 End: 06-06-2023 ambulatory JAY TIA Not Available Start: 05-30-2023 End: 05-30-2023 ambulatory Sultana Benson Other [facility] Other Start: 05-30-2023 Office outpatient vi sit 15 minutes Sultana Benson [facility] Start: 10-03-2022 End: 10-04-[address] JAY TAI Facility:[facility] Start: 08-22-[address] JAY TAI [facility] ity:[facility] Start: 08-18-2022 End: 08-18-2022 ambulatory Martha Delgado Other [facility] Other Start: 08-18-2022 Office outpatient vi sit 15 minutes Martha Delgado [facility] Start: 07-31-2022 End: 08-01-2022 ambulatory PACHECO HART Facility:[facility] Start: 07-14-2022 End: 07-15-2022 ambulatory PACHECO HART Facility:[facility] Start: 07-03-2022 End: 07-04-2022 ambulatory PACHECO HART Facility:[facility] Start: 06-26-2022 End: 06-26-[address] JAY TAI Facility:[facility] Start: 06-25-2022 Encounter for preprocedural cardiovascular examination PACHECO HART [facility] Start: 06-25-2022 Encounter for preprocedural laboratory examination [facility] Start: 06-22-2022 End: 06-23-[address] JAY TAI Facility:[facility] Start: 06-22-2022 End: 06-23-2022 Encounter for preprocedural laboratory examination DR JAY TAI Facility:[facility] Start: 06-20-2022 End: 06-21-[address] JAY TAI Facility:[facility] Start: 06-07-2022 End: 06-08-[address] JAY TAI Facility:[facility] Start: 06-02-2022 End: 06-03-2022 ambulatory [facility] Start: 05-19-2022 End: 05-20-2022 ambulatory PACHECO Rivera [facility] Facility:[facility] Start: 05-12-2022 End: 05-13-2022 ambulatory PACHECO Rivera [facility] Facility:[facility] Start: 05-02-2022 End: 05-03-2022 ambulatory PACHECO Rivera [facility] Facility:[facility] Start: 05-01-2022 End: 05-02-2022 ambulatory PACHECO Rivera [facility] Facility:[facility] Start: 04-19-2022 End: 04-19-2022 ambulatory Sultana Benson Other [facility] Other Start: 04-19-2022 Office outpatient vi sit 15 minutes Sultanamarito Benson [facility] Start: 12-01-2021 Encounter for genera l adult medical examination without abnormal findings DR JAY TAI [facility] Start: 11-28-2021 End: 11-29-[address] JAY TAI Facility:[facility] Start: 11-28-2021 End: 11-29-2021 Encounter for general adult medical examination without abnormal findings DR JAY TAI Facility:[facility] Start: 06-06-2021 End: 06-06-2021 ambulatory Martha Granados Other [facility] Other Start: 06-06-2021 Office outpatient vi sit 15 minutes Martha Granados [facility] Start: 03-30-2021 Office outpatient vi sit 15 minutes Sultana Kelley [facility] Start: 08-07-2017 Ambulatory PHYSICIAN NO [facility] Procedures Date Procedure Procedure Detail Performing Clinician Start: 11-28-2021 PSA screening PACHECO GROSS Comment on above: Performed By: #### P [facility] #### [facility] [address] [address] [address] Manoj Lala Plan of Treatment Date Care Activity Detail Author Start: 06-06-2024 Screening for malign ant neoplasm of colon Colorectal Cancer Screening [facility] Comment on above: Postponed from 03/24 (Patient Refused) Start: 03-30-2024 Urine screening for protein Diabetes: Urine Protein Screening [facility] Start: 10-29-2023 End: 10-29-2023 Patient encounter procedure 10/29/2023 3:45 PM EDT Office Visit [facility] [address] [place] [id number] Jay Tai MD [address] [place] [id number] [facility] Start: 08-02-2023 End: 08-02-2024 Hemoglobin A1c/Hemoglobin.total in Blood Hemoglobin A1c Lab Routine Type 2 diabetes mellitus with hyperglycemia, with long-term current use of insulin ([facility]) Expected: 08/02/2023 (Approximate), Expires: 08/02/2024 [facility] Work Phone: Comment on above: Expected: 08/02/2023 (Approximate), Expires: 08/02/2024 Start: 06-30-2023 Hemoglobin A1c measurement Diabetes: Hemoglobin A1C [facility] Start: 02-16-2023 Influenza vaccination Influenza Vacc ine (#1) [facility] Start: 10-23-2019 Glaucoma screening Diabetes: R etinopathy Screening [facility] Start: 1960 Screening for malign ant neoplasm of colon [facility] Immunizations Immunization Date Immunization Notes Care Provider Fa cility 05-09-2022 influenza virus vacc ine, unspecified formulation Jay Tai MD Work Phone: [facility] Payers Date Payer Category Payer Unknown BCBS BCBS xxxxxx [id number] 2018-Present [phone] [address] [place] [address] [id number] 1962 Unknown [id number] 2.16.840.1.865554.3.579.2. 593 1962 Unknown [id number] 2.16.840.1.657879.3.579.2. 593 1962 Unknown [id number] 2.16.840.1.997497.3.579.2. 593 1962 Unknown [id number] 2.16.840.1.961661.3.579.2. 593 1962 Unknown [id number] 2.16.840.1.528446.3.579.2. 593 1962 Unknown [id number] 2.16.840.1.508589.3.579.2. 593 1962 Unknown [id number] 2.16.840.1.171292.3.579.2. 593 1962 Unknown [id number] 2.16.840.1.290728.3.579.2. 593 1962 Unknown [id number] 2.16.840.1.100061.3.579.2. 593 1962 Unknown [id number] 2.16.840.1.939451.3.579.2. 593 1962 Unknown [id number] 2.16.840.1.145698.3.579.2. 593 1962 Unknown [id number] 2.16.840.1.026425.3.579.2. 593 1962 Unknown [id number] 2.16.840.1.597853.3.579.2. 593 1962 Unknown [id number] 2.16.840.1.122643.3.579.2. 593 1962 Unknown [id number] 2.16.840.1.870754.3.579.2. 593 1962 Unknown [id number] 2.16.840.1.810551.3.579.2. 1259 1962 Unknown [id number] 2.16.840.1.286639.3.579.2. 1259 1959 [facility] [id number] 2.16.840.1.034943.19 Social History Date Type Detail Facility Start: 06-05-2023 End: 08-02-2023 Sex Assigned At [facility] Start: 07-11-2023 End: 08-02-2023 Tobacco smoking status MTIS Never smoked tobacco [facility] Start: 07-11-2023 Tobacco use and exposure Smokeless t obacco non-user [facility] Start: 07-11-2023 End: 08-02-2023 Alcohol intake Lifetime non-drinker (finding) [facility] Start: 06-05-2023 End: 08-02-2023 History of Social function [facility] Within the last year , have you been afraid of your partner or ex-partner? Patient declined [facility] Are you now , , , , never or living with a partner? [facility] Do you feel stress - tense, restless, nervous, or anxious, or unable to sleep at night because your mind is troubled all the time - these days [OSQ] Not at all [facility] Start: 07-11-2023 Tobacco Comment Uses chewing tobacco [facility] Start: 06-22-2023 Alcohol Comment caffeine intak e : coffee, soda [facility] Start: 1960 Sex Assigned At Not on file [facility] History of tobacco use Passive smoker [facility] Start: 08-02-2023 Tobacco use and exposure User of smo keless tobacco [facility] History of tobacco use Snuff User [facility] Medical Equipment Procedure Code Equipment Code Equipment Origin al Text Equipment Identifier Dates USE 1 PEN NEEDLE DIRECTED [id number] Start: 04-29-2023 Clinical Notes 03-30-2021 to 08-02-2023 Jay Tai MD - 08/02/2023 3:32 PM Desire Tai MD - 08/02/2023 3:31 PM Desire Tai MD - 08/02/2023 2:45 PM EST Note Date & Type Note Facility 08-02-2023 History of Presen t illness Narrative Associated Problem(s): Type 2 diabetes mellitus with hyperglycemia, with long-term current use of insulin ([facility]) Not checking BS and due for A1C. Need to check TID. Stick to ADA diet and limit carbs. Associated Problem(s): Erectile dysfunction of organic origin No change with levitra and try daily cialis. If no response will refer to urology. Subjective Patient ID: Grant Sandy is a 63 y.o. male who presents for Follow-up. Follow up DM and ED. Not checking BS away from office because meter isn't working properly. Stopped rybelsus over a month ago due to GI side effects. Changed diet and trying to limit carbs. Increased fruits and vegetables. Denies signs of elevated BS such as polyuria, polyphagia or polydipsia. Continues to c/o ED. Tried levitra and no change. Not able to get erection and not enough for penetration. If get erection often lose quickly. Review of Systems Constitutional: Negative for fatigue. Respiratory: Negative for cough, shortness of breath and wheezing. Cardiovascular: Negative for chest pain and palpitations. Gastrointestinal: Negative for abdominal pain, diarrhea, nausea and vomiting. Genitourinary: Negative for dysuria. Objective Physical Exam Constitutional: General: He is not in acute distress. Appearance: Normal appearance. HENT: Head: Normocephalic. Right Ear: Tympanic membrane and ear canal normal. Left Ear: Tympanic membrane and ear canal normal. Eyes: Extraocular Movements: Extraocular movements intact. Pupils: Pupils are equal, round, and reactive to light. Cardiovascular: Rate and Rhythm: Normal rate and regular rhythm. Heart sounds: No murmur heard. No friction rub. No gallop. Pulmonary: Breath sounds: Normal breath sounds. No wheezing, rhonchi or rales. Abdominal: General: Bowel sounds are normal. There is no distension. Palpations: Abdomen is soft. Tenderness: There is no abdominal tenderness. There is no guarding or rebound. Musculoskeletal: Left lower leg: No edema. Neurological: Mental Status: He is alert. Assessment/Plan Problem List Items Addressed This Visit Erectile dysfunction of organic origin No change with levitra and try daily cialis. If no response will refer to urology. Relevant Medications tadalafil (Cialis) 5 MG tablet Type 2 diabetes mellitus with hyperglycemia, with long-term current use of insulin ([facility]) - Primary Not checking BS and due for A1C. Need to check TID. Stick to ADA diet and limit carbs. Relevant Orders Hemoglobin A1c documented in this encounter [facility] 05-30-2023 Evaluation note Encounter Date Diagnosis Assessment Notes May, Contact with and (suspected) exposure to covid-19 (ICD-10 - Z20.822) May, Viral URI (ICD-10 - J06.9) Drink plenty fluids, get plenty of rest. Continue home medications as prescribed. Take the Medrol Dosepak as prescribed until gone. Use the albuterol inhaler as prescribed as needed for cough or shortness of breath. Take Delsym or Robitussin as needed for cough. Take Tylenol or Motrin as needed for aches pains or fevers. Follow-up with your family physician if no improvement in 2 to 3 days [facility] Other 03-03-2023 Evaluation note* Encounter Date Diagnosis Assessment Notes Treatment Notes Treatment Clinical Notes Aug, Acute otitis media with effusion of left ear (ICD-10 - H65.192) Discussed diagnosis with patient. Advised to take antibiotics as directed, complete entire course even if feeling better. Use rx Flonase and Zyrtec as directed. Supportive care, Tylenol/Motrin as needed for aches/fever, warm compress to affected ear, push fluids and rest. Follow up with PCP if symptoms do not improve in the next 2-3 days. Immediate eval for severe ear pain, severe headache, neck pain/stiffness, pain, erythema, or redness behind the ear, fever, N/V, hearing loss, fever, or any other new or concerning symptoms. Patient verbalizes understanding and is agreeable to treatment plan [facility] Other [id number] NotePROCEDURE: XR FOOT RT 2V HISTORY: Pain ; medial first toe wound COMPARISON: XR foot right 06/20/2022 FINDINGS: BONES:Multiple intraoperative spot fluoroscopic images demonstrate resection of bone from the medial aspect of the first toe proximal and distal phalanx. SOFT TISSUES:Expected intraoperative findings. EFFUSION:None visible. OTHER: Negative. IMPRESSION: 1. Partial bone excision from first toe. Electronically authenticated by: DENNY SHELDON Date: 2022-06-26 15:48[facility]01-04-2023 NotePROCEDURE: XR FOOT RT MIN 3 VIEWS HISTORY: Pain in right foot ; follow-up first toe wound COMPARISON: XR foot right 05/01/2022 FINDINGS: BONES:Increased lucency involving the distal medial aspect of the first proximal phalanx. Greater destructive changes involving the medial base of the first distal phalanx, however, the bone now appears more sclerotic than previously seen. SOFT TISSUES:Mild soft tissue swelling. EFFUSION:None visible. OTHER: Negative. IMPRESSION: 1. There has been progression of lytic and destructive bone changes involving the first toe proximal and distal phalanx which are likely sequela of osteomyelitis, however, these appear to have more well-defined sclerotic margins on today's study suggesting this may represent early changes of bone healing following osteomyelitis. Correlate clinically. Electronically authenticated by: DENNY SHELDON Date: 2022-06-21 11:19[facility]11-15-2022 NotePROCEDURE: XR FOOT RT MIN 3 VIEWS COMPARISON: None. HISTORY: Pain in right foot FINDINGS: BONES:Lytic change identified to the medial base of the first distal phalanx. No acute fracture or dislocation. Mild degenerative change with marginal osteophyte formation. SOFT TISSUES:Soft tissue swelling of the first toe EFFUSION:None visible. OTHER: Negative. IMPRESSION: Suspected osteomyelitis first distal phalanx Electronically authenticated by: NICKI CABEZAS Date: 2022-05-02 07:41[facility]11-02-2022 Evaluation note* Encounter Date Diagnosis Assessment Notes Treatment Notes Treatment Clinical Notes Apr, Type 1 diabetes mellitus with foot ulcer (ICD-10 - E10.621) Drink plenty fluids and get plenty of rest. Continue home medications as prescribed. Take the clindamycin as prescribed until gone. Keep your foot clean and dry. You may soak your foot in warm soapy water or's Epsom salt 2-3 times a day. Elevate your foot is much as possible. Off work until Sunday. Follow-up with your family physician as soon as possible for recheck. Go to the ER for worsening symptoms or concerns. Apr, Other Diabetic foot u lcer material was printed [facility] Other 12-20-2021 Evaluation note* Encounter Date Diagnosis Assessment Notes Treatment Notes Treatment Clinical Notes May, Type 2 diabetes mellitus without complication, unspecified whether technician terminal and repeater insulin use (ICD-10 - E11.9) Needs follow up with PCP. Patient verbalizes understanding and is agreeable with treatment plan May, Onycholysis (ICD-10 - L60.1) Discussed diagnosis with patient. Will send culture of drainage. Advised patient that we will call with results in 2-5 days. Due to suspected infection, will send in rx of Doxycycline. Reviewed allergies and recent antibiotic use. Advised patient to take medication as directed, take with food and plenty of water, Will also send in rx of Clotrimazole for fungal coverage, advised patient to apply as directed. Encouraged epsom salt soaks. Advised patient that he needs to follow up with PCP by Sunday of this week to be evaluated. Immediate evaluation in ER for signs/symptoms as discussed. Patient verbalizes understanding and is agreeable with treatment plan [facility] Other 10-13-2021 Evaluation note* Encounter Date Diagnosis Assessment Notes Treatment Notes Treatment Clinical Notes Mar, Avulsion of toenail, initial encounter (ICD-10 - S91.209A) Drink plenty fluids, get plenty of rest. Continue home medications as prescribed. Take the cephalexin as prescribed until gone. Soak your foot in warm soapy water 2 or 3 times a day. Call your doctor tomorrow for an appointment for recheck next week. 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 [facility] - [facility]* Type Description Date Medical History type I diabetes [facility] Other History general Narrative - Reported* Type Description Date Medical History type I diabetes Surgical History toe surgery 2022 [facility] Other Summary Purpose Family History No Family History Records FoundNo Family History Records FoundNo Family History Records FoundNo Family History Records FoundNo Family History Records Found Advance Directives No Advanced Directives Records FoundNo Advanced Directives Records FoundNo Advanced Directives Records FoundNo Advanced Directives Records FoundNo Advanced Directives Records Found Reason for Referral Specialty Diagnoses / Procedures Referred By Jaimie arce Referred To Contact Diagnoses Erectile dysfunction of organic origin Jay Tai MD [address] [place] [address] Referral ID Status Reason Start Date Expiration Date Visits Re quested Visits Authorized [id number] Closed 1 1 Additional Source Comments (unrecognized sect ion and content) No Status Records FoundNo Status Records FoundNo Status Records FoundNo Status Records FoundNo Status Records Found INFORMATION SOURCE (unrecogn ized section and content) DATE CREATED AUTHOR 12/07/2017 [facility] DATE CREATED AUTHOR AUTHOR'S ORGANIZ ATION 09/21/2020 Rick [facility] DATE CREATED AUTHOR AUTHOR'S ORGANIZ ATION 06/17/2021 [facility] DATE CREATED AUTHOR AUTHOR'S ORGANIZ ATION 11/01/2022 [facility] DATE CREATED AUTHOR AUTHOR'S ORGANIZ ATION 08/04/2023 [facility] EPIC REASON FOR VISIT (unrecogniz ed section and content) Reason Comments Follow-up Care Teams (unrecognized sec tion and content) Coding Consultant Relationship Specialty Start Date End Date Jay Tai MD [address] [place] [id number] PCP - General Family Medicine 08/02/23 Coding Consultant Relationship Specialty Start Date End Date Jay Tai MD [address] [place] [address] PCP - General Family Medicine 08/02/23 FOR RECORDS PERTAINING TO PATIENTS WHO ARE OR HAVE BEEN ENROLLED IN A CHEMICAL DEPENDENCY/SUBSTANCEABUSE PROGRAM, SOME INFORMATION MAY BE OMITTED. This clinical summary was aggregated from multiple sources. Caution should be exercised in using it in the provision of clinical care. This summary normalizes information from multiple sources, and as a consequence, information in this document may materially change the coding, format and clinical context of patient data. In addition, data may be omitted in some cases. CLINICAL DECISIONS SHOULD BE BASED ON THE PRIMARY CLINICAL RECORDS. [employer] provides no warranty or guarantee of the accuracy or completeness of information in this document.
== END 2023-11-07 15:52 | disposition home or self-care (01) ==
LOC: LAB 15:52
PROVIDERS: PCP Family Medicine; Visit Provider Family Medicine
DX: E11.65 Type 2 diabetes mellitus with hyperglycemia (principal); Z79.4 Long term (current) use of insulin
CPT/HCPCS: 36415; 83036

== ENCOUNTER 2024-03-05 14:01 | Outpatient (OUT) | payer BC, SELFPAY ==
--- OUTSIDE RECORDS SUMMARY | 2024-03-05 14:09 | XMS_ITS | CCD ---
Author Organization [facility] Care Team Providers Care Activities Attendant Name Role Phone NO, PHYSICIAN Unavailable Unavailable Sultana Benson Unavailable Darwin Martha Unavailable Danny Martha Unavailable TANNER, PACHECO Rivera Attending Unavailable NADERER, DR JAY Lawson Primary Care Unavailable HIGHLANDER, PACHECO Rivera Admitting Unavailable HIGHLANDER, PACHECO Rivera Attending Unavailable HIGHLANDER, PACHECO Rivera Admitting Unavailable NADERER, DR JAY Lawson Primary Care Unavailable HIGHLANDER, PACHECO iRvera Attending Unavailable HIGHLANDER, PACHECO Rivera Admitting Unavailable NADERER, DR JAY Lawson Primary Care Unavailable JAYTON, DR NICKI Mazariegos Consulting Unavailable HIGHLANDER, PACHECO Rivera Consulting Unavailable NADERER, DR JAY Lawson Primary Care Unavailable HIGHLANDER, PACHECO Rivera Admitting Unavailable HIGHLANDER, PACHECO Rivera Attending Unavailable HIGHLANDER, PACHECO Rivera Attending Unavailable HIGHLANDER, PACHECO Rivera Admitting Unavailable NADERER, DR JAY Lawson Primary Care Unavailable NADERER, DR JAY Lawson Primary Care Unavailable ZieberDenny Consulting Unavailable HIGHLANDER, PACHECO Rivera Attending Unavailable [...] Unavailable NADERER, DR JAY Lawson Admitting Unavailable HIGHLANDER, PACHECO Rivera Attending Unavailable TANNER, PACHECO Rivera Admitting Unavailable ABIDA, DR JAY Lawson Primary Care Unavailable HIGHLKERRY, PACHECO Rivera Consulting Unavailable ABIDA, DR JAY Lawson Primary Care Unavailable HIGHLANDER, PACHECO Rivera Admitting Unavailable Denny Sheldon Consulting Unavailable HIGHLANDER, PACHECO Rivera Attending Unavailable HIGHLANDER, PACHECO Rivera Consulting Unavailable ANABEL PÉREZ Consulting Unavailable MARIANA BUCKLEY Consulting Unavailable TANNER, PACHECO Rivera Attending Unavailable ABIDA, DR JAY Lawson Primary Care Unavailable HIGHLANDER, PACHECO Rivera Admitting Unavailable HIGHLANDER, PACHECO Rivera Attending Unavailable ABIDA, DR JAY Lawson Primary Care Unavailable HIGHLANDER, PACHECO Rivera Admitting Unavailable Jay Tai MD Primary Care Provider [phone] JAY TAI Attending Unavailable JAY TAI Attending Unavailable JAY TAI Attending Unavailable NONE, XXXX Primary Care Physician KADEN Todd Attending KADEN Todd Attending JAY Ramirez Referring Unavailable JAY TAI Primary Care Physician Allergies Allergy Classification Reported Allergen(s) Allergy Type Date of Onset Reaction(s) Facility (1 source) No Known Medication Allergies; Translations: [No Known Medication Allergies] Propensity to adverse reactions (disorder) [facility] Repository Medications Current Medications Medication Drug Class(es) Dates Sig (Normalized) Sig (Original) [id number] 60 actuat albuterol 0.09 mg/actuat metered dose inhaler (1 source) beta2-Adrenergic Agonist Start: 05-30-2023 take 2 puff(s) by inhalation four times daily as needed Albuterol Sulfate HFA 108 (90 Base) MCG/ACT 2 puffs Inhalation 4 times a day prn May, Active atorvastatin 40 mg oral tablet (3 sources) HMG-CoA Reductase Inhibitor Start: 03-11-2023 take 1 tablet by mouth at bedtime atorvastatin (Lipitor) 40 MG tablet Take 40 mg by mouth at bedtime 0 03/11/2023 Active cephalexin 500 mg oral capsule (1 source) Cephalosporin Antibacterial Start: 03-30-2021 take 1 capsule by mouth every eight hours Cephalexin 500 MG 1 capsule Orally tid for 10 day(s) Mar, Active clindamycin 300 mg oral capsule (1 source) Lincosamide Antibacterial Start: 04-19-2022 take 1 capsule by mouth every eight hours Clindamycin HCl 300 MG 1 cap(s) Orally three times a day for 10 day(s) Apr, Active clotrimazole 10 mg/ml topical cream (1 source) Azole Antifungal Start: 06-06-2021 Clotrimazole 1 % 1 application Externally Twice a day for 7 day(s) May, Active doxycycline monohydrate 100 mg oral capsule (1 source) Tetracycline-class Drug Start: 06-06-2021 take 1 capsule by mouth every twelve hours Doxycycline Monohydrate 100 MG 1 capsule Orally every 12 hrs for 10 days May, Active empagliflozin 25 mg oral tablet (2 sources) Sodium-Glucose Cotransporter 2 Inhibitor Start: 12-27-2023 Jardiance 25 mg oral tablet Refills(s) 0 Start Date: 12/27/23 Status: Ordered 3 ml insulin aspart, human 100 unt/ml pen injector (5 sources) Insulin Analog NovoLOG FlexPen 100 UNIT/ML Subcutaneous Active 3 ml insulin isophane, human 70 unt/ml / insulin, regular, human 30 unt/ml pen injector (5 sources) Insulin Start: 12-27-2023 HumuLIN 70/30 KwikPen 70 units-30 units/mL subcutaneous suspension Refills(s) 0 Start Date: 12/27/23 Status: Ordered inject 40 [IU] by bee bcutaneous injection in the morning HumuLIN 70/30 KWIKPEN (70-30) 100 UNIT/ML injection Inject 40 Units under the skin in the morning and 40 Units in the evening. Inject before meals. 0 Active methylPREDNISolone 4 mg oral tablet (1 source) Corticosteroid Start: 05-30-2023 Medrol 4 MG as directed Orally As Directed for 6 days May, Active Semaglutide (1 source) Semaglutide Active tadalafil 5 mg oral tablet (4 sources) Phosphodiesterase 5 Inhibitor Start: 12-27-2023 Cialis 5 mg oral tablet See Instructions, PRN for erectile dysfunction, 3 tabs po 60 mins prior to sexual activity. do not exceed 20mg/24hrs., # 30 tab(s), Refills(s) 3, Pharmacy: [facility]/pharmacy #[id number], 180, cm, 12/27/23 14:03:00 EDT, Height/Length Dosing, 97.5, kg, 12/27/23 14:03:00 EDT, Weight Dosing Start Date: 12/27/23 Status: Ordered Start: 12-27-2023 tadalafil 5 mg oral tablet Refills(s) 0 Start Date: 12/27/23 Status: Ordered Start: 08-02-2023 take 1 tablet by shanta th in the morning tadalafil (Cialis) 5 MG [...] Onset: 07-06-2022 Chronic Diabetes mellitus without complication (9 sources) Type 2 diabetes mellitus without complications; Translations: [Type 2 diabetes mellitus without complication] Onset: 03-30-2021 Resolved: 06-06-2021 Chronic Disorders of lipid metabolism (5 sources) Dyslipidemia; Translations: [Hyperlipidemia, unspecified] Onset: 06-06-2023 06-06-2023 Chronic Infective arthritis and osteomyelitis (except that caused by tuberculosis or sexually transmitted disease) (4 sources) Chronic osteomyelitis with draining sinus, right ankle and foot; Translations: [CHRONIC OM DRAIN SINUS RT ANK FOOT] Onset: 06-26-2022 Chronic Other aftercare (1 source) [employer] truck driver (current) use of insulin; Translations: [FPC CURRENT USE OF INSULIN] Onset: 10-08-2022 Episodic Other lower respiratory disease (5 sources) Multiple nodules of lung; Translations: [Other nonspecific abnormal finding of lung field] Onset: 06-06-2023 06-06-2023 Episodic Other male genital disorders (5 sources) Secondary erectile dysfunction; Translations: [Male erectile dysfunction, unspecified] Onset: 06-06-2023 06-06-2023 Chronic Other male genital disorders (4 sources) Male erectile dysfunction, unspecified; Translations: [Erectile dysfunction] Onset: 12-27-2023 Chronic Other nutritional; endocrine; and metabolic disorders [...] Test Name Value Interpretation Reference Range Facility Ambulatory Visit Summaryon 0 12-27-2023 Ambulatory Visit Summary Ambulatory Visit Summary GRANT SANDY :1960 Visit Date:12/27/2023 Ambulatory Visit Instructions Your Diagnosis ED (erectile dysfunction) Your Care Team Attending Physician - ROSY MCGREGOR PA-C Primary Care Physician - NONE, XXXX Referring Physician - JAY TAI MD This Is Your Medications List empagliflozin (Jardiance 25 mg oral tablet) insulin isophane-insulin regular (HumuLIN 70/30 KwikPen 70 units-30 units/mL subcutaneous suspension) tadalafil (tadalafil 5 mg oral tablet) Discharge Vitals Heart Rate (Peripheral) 85 Blood Pressure 149/86 Height 180 cm Height 71 in Weight 97.5 kg Weight 214.5 lb BMI 30.09 What to do next Scheduled Follow-Up Appointments 2023 3:00 PM EDT With: ROSY MCGREGOR PA-C Where: [facility] Urology Office/Clinic Noteon 12-27-2023 Urology Office/Clinic Note Urology Office/Clinic Note Chief Complaint new patient HPI Staff Grant is a 63 yo male new pt referred by Dr. Jay Tai due to ED. Pt is a new pt. Never before seen in our office. Pt is diabetic. Last A1C 8.4 Last PSA 03/30/23- 1.15 Per referral papers, pt has tried Cialis with no improvement as well as Sildenafil 25mg Able to get soft erection but not enough for penetration. Then loses erection quickly Patient denies any issues urinating. Does take tadalafil 5mg qd Review of Systems PHQ Score Initial Depression Screen Score: 0 SCORE no fever, chills, malaise, myalgia. no rash/lesions. no chest pain, palpitations, or SOB. no abdominal pain, nausea, vomiting. no unilateral calf swelling, redness, pain Physical Exam Vitals & Measurements HR: 85(Peripheral) BP: 149/86 HT: 71 in HT: 180 cm WT: 97.5 kg WT: 214.5 lb BMI: 30.09 General: nontoxic, NAD Mouth: moist mucosa Lungs: normal respiratory effort Cardio: regular rate, good distal perfusion Abdomen: nondistended, no suprapubic distention or tenderness, no CVA tenderness Neurologic: Grossly normal Skin: No rashes or suspicious lesions Assessment/Plan IPSS 0 UA completed in office today shows no microhematuria or signs of infection. 1. ED (erectile dysfunction) (N52.9: Male erectile dysfunction, unspecified) Pt has issues achieving erection yes, firmness yes, maintaining erection yes, reaching climax yes EVON 1 ED contributing factors: Cardiovascular disease no, hypertension no, diabetes mellitus yes A1c 8.4 recently started on Jardiance, hyperlipidemia no smoking no recreational drugs no, alcohol no, major surgery (radical prostatectomy) or radiotherapy (pelvis or retroperitoneum) no Spinal cord and brain injuries no, Parkinson disease no, Alzheimer disease no, multiple sclerosis no, stroke no Peyronie's disease no, penile fracture no Hypogonadism no, hyper/hypothyroidism no Antihypertensives no, antidepressants no, antipsychotics no, antiandrogens no, Performance-related anxiety no, traumatic past experiences no, relationship problems no, anxiety/depression no Pt has tried: vacuum device no, oral medications yes Sildenafil 100mg (4x25mg) tried 2 or 3 times, was semi-hard but not firm enough for penetration. also currently taking Cialis 5mg daily. gets spontaneous erections but not when he wants to perform. Today we discussed all treatment options for ED including oral medications, erectile pumps, intracorporeal injection, and surgical options. We reviewed all of his contributing factors including those that are within his control to change and those which are not. Pt has decided that he would like to try vacuum device/rings + PRN dosing of Cialis. F/u in 2 mos. Consider ICI if no improvement. Ordered: E&M of New Patient Moderate 45-59 Min 70239 Urnls Dip Stick Auto w/o Microscopy POC 25017 Orders: tadalafil, See Instructions, PRN for erectile dysfunction, 3 tabs po 60 mins prior to sexual activity. do not exceed 20mg/24hrs., # 30 tab(s), Refills(s) 3, Pharmacy: [facility]/pharmacy #[id number], 180, cm, 07/11/24 14:03:00 EDT, Height/Length Dosing, 97.5, kg, 12/27/23 14... Follow-up With When Contact Information ROSY MCGREGOR PA-C, URL Within 3 months [address] [place] [address] Additional Instructions: Patient Education Erectile Dysfunction Problem List/Past Medical History Ongoing Diabetes mellitus Dyslipidemia ED (erectile dysfunction) Multiple pulmonary nodules Historical No qualifying data Medications Cialis 5 mg oral tablet, See Instructions, PRN, 3 refills HumuLIN 70/30 KwikPen 70 units-30 units/mL subcutaneous suspension Jardiance 25 mg oral tablet tadalafil 5 mg oral tablet Allergies No Known Medication Allergies Social History Tobacco Never (less than 100 in lifetime) Tobacco Use:., 12/27/2023 Family History Diabetes: Father. Lab Results Ambulatory Point of Care Results Bilirubin Urine Dipstick: Negative (12/27/23 13:53:00) Blood Urine Dipstick: Negative (12/27/23 13:53:00) Glucose Urine Dipstick: 3+ 1000 mg/dl (12/27/23 13:53:00) Ketones Urine Dipstick: Negative (12/27/23 13:53:00) Leukocytes Urine Dipstick: Negative (12/27/23 13:53:00) Nitrite Urine Dipstick: Negative (12/27/23 13:53:00) Protein Urine Dipstick: Negative (12/27/23 13:53:00) Specific [place]gett Urine Dipstick: 1.025 (12/27/23 13:53:00) Urine Appearance Urine Dipstick: Clear (12/27/23 13:53:00) Urine Color Urine Dipstick: Yellow (12/27/23 13:53:00) Urobilinogen Urine Dipstick: Normal 0.2-1 EU/dl (12/27/23 13:53:00) pH Urine Dipstick: 5.5 (12/27/23 13:53:00) Normal [facility] Comment on above: Result Comment: Elec tronically Signed By: ROSY MCGREGOR PA-C\.br\Date and Time Signed: 12/27/23 14:42 EDT COVID + FLU Quick Testingon 05-30-2023 SARS-CoV-2 (COVID-19) RNA JO+probe Ql (Unsp spec) Negative [employer] [facility] [employer] Other COVID + FLU Quick Testing Negative [employer] [facility] [employer] Other GLYCOHEMOGLOBIN A1Con 2022 ADA RECOMMENDATION SEE BELOW Normal [facility] Comment on above: Result Comment: ADA RECOMMENDED LIMIT 4.0 - 6.0 ADA THERAPEUTIC TARGET < 7.0 ACTION SUGGESTED > 7.0 Performed By: #### G STAIN #### [facility] [address] [place] [address] Dr. Manoj Lala Glucose [Mass/Vol] 249 mg/dL Normal [facility] Comment on above: Performed By: #### G STAIN #### [facility] [address] [address] [address] Manoj Lala HbA1c (Bld) [Mass fraction] 10.3 % Critically high 4.5-6.[address] [facility] Comment on above: Performed By: #### G STAIN #### [facility] [address] [address] [address] Manoj Lala ACID FAST SMEAR AND CXon Acid Fast Culture Negative Normal [facility] Comment on above: Result Comment: No a sly fast bacilli isolated after 6 weeks. Performed By: #### A FB #### [facility] [address] [address] [address] Manoj Lala Acid Fast Smear Negative Normal [facility] Comment on above: Performed By: #### A FB #### [facility] [address] [address] [address] Manoj Lala [employer] Specimen Processing Tissue Grinding Normal [facility] Comment on above: Performed By: #### A FB #### [facility] [address] [place] [address] Dr. Manoj Lala FUNGAL CULTUREon 07-26-2022 Fungus (Mycology) Culture Final report Normal [facility] Comment on above: Performed By: #### C XFUN #### [facility] [address] [address] [address] Manoj Lala Fungus Stain Final report Normal [facility] Comment on above: Performed By: #### C XFUN #### [facility] [address] [address] [address] Manoj Lala Result 1 Comment [address] [facility] Comment on above: Result Comment: GUCCI/ Calcofluor preparation: no fungus observed. Performed By: #### C XFUN #### [facility] [address] [address] [address] Manoj Lala Result Comment: No y east or mold isolated after 4 weeks. CULTURE ANAEROBICon 06-26-19 23 CULTURE ANAEROBIC Culture Observations: No growth of anaerobes at [address] [facility] Comment on above: Performed By: #### C VDTBH #### [facility] [address] [place] [address] Dr. Manoj Lala CULTURE OTHERon 06-26-2022 CULTURE OTHER Culture Observations: Light growth of normal skin kurtis Normal [facility] Comment on above: Performed By: #### C VDTBH #### [facility] [address] [address] [address] Manoj Lala GRAM STAINon 06-26-2022 COMMENTS NO ORGANISMS OBSERVED Normal [facility] Comment on above: Performed By: #### G STAIN #### [facility] [address] [place] [address] Dr. Manoj Lala DIPHTHEROIDS Normal [facility] Comment on above: Performed By: #### G STAIN #### [facility] [address] [address] [address] Manoj Lala EPITHELIALS RARE Normal [facility] Comment on above: Performed By: #### G STAIN #### [facility] [address] [address] [address] Manoj Lala FUNGAL ELEMENTS Normal [facility] Comment on above: Performed By: #### G STAIN #### [facility] [address] [place] [address] Dr. Manoj Lala GRAM NEG BACILLI Normal [facility] Comment on above: Performed By: #### G STAIN #### [facility] [address] [place] [address] Dr. Manoj Lala GRAM NEG DIPPLOCOCCI Normal [facility] Comment on above: Performed By: #### G STAIN #### [facility] [address] [address] [address] Manoj Lala GRAM POS BACILLI Normal [facility] Comment on above: Performed By: #### G STAIN #### [facility] [address] [place] [address] Dr. Manoj Lala GRAM POSITIVE COCCI Normal [facility] Comment on above: Performed By: #### G STAIN #### [facility] [address] [place] [address] Dr. Manoj Lala GRAM STAIN SOURCE Rt Hallux Bone Normal [facility] Comment on above: Performed By: #### G STAIN #### [facility] [address] [place] [address] Dr. Manoj Lala GS_DIPTH Normal [facility] Comment on above: Performed By: #### G STAIN #### [facility] [address] [place] [address] Dr. Manoj Lala WBC NONE SEEN Normal [facility] Comment on above: Performed By: #### G STAIN #### [facility] [address] [place] [address] Dr. Manoj Lala POINT OF CARE GLUCOSEon Glucose [Mass/Vol] 244 mg/dL Critically high 74-106 [facility] Comment on above: Performed By: #### G STAIN #### [facility] [address] [place] [address] Dr. Manoj Lala Glucose [Mass/Vol] 238 mg/dL Critically high 74-106 [facility] Comment on above: Performed By: #### P OCGLUC #### [facility] [address] [place] [address] Dr. Manoj Lala [facility] SARS-CoV-2 (COVID-19) RNA JO+probe Ql (Unsp spec) Not detected Normal NOT DETECTED [facility] Comment on above: Result Comment: This test is not yet approved or cleared by the [place] FDA. When there are no FDA-approved or cleared tests available, and other criteria are met, FDA can make tests available under an emergency access mechanism called an Emergency Use Authorization (EUA). The EUA for this test is supported by the Nursing Department Chairperson of Health and Human Service's (HHS's) declaration [...] consistent with SARS-CoV-2. Performed By: #### C VDTB #### [facility] [address] [place] [address] Dr. Manoj Lala PROF CHEM 8 (BAS METB)on Anion gap [Moles/Vol] 10.8 mmol/L Normal [facility] Comment on above: Performed By: #### B MP #### [facility] [address] [place] [address] Dr. Manoj Lala Calcium [Mass/Vol] 8.8 mg/dL Normal 8.5-10.1 [facility] Comment on above: Performed By: #### B MP #### [facility] [address] [place] [address] Dr. Manoj Lala Chloride [Moles/Vol] 102 mmol/L Normal 98-[address] [facility] Comment on above: Performed By: #### B MP #### [facility] [address] [place] [address] Dr. Manoj Lala CO2 [Moles/Vol] 28.5 mmol/L Normal 21.0-32.0 [facility] Comment on above: Performed By: #### B MP #### [facility] [address] [place] [address] Dr. Manoj Lala Creatinine [Mass/Vol] 1.02 mg/dL Normal 0.70-1.[address] [facility] Comment on above: Performed By: #### B MP #### [facility] [address] [address] [address] Manoj Lala EGFR-AF CENTRAL AFRICAN >60 Normal >=60 [facility] Comment on above: Performed By: #### B MP #### [facility] [address] [address] [address] Manoj Lala EGFR-NON AF CENTRAL AFRICAN >60 Normal >=[address] [facility] Comment on above: Performed By: #### B MP #### [facility] [address] [address] [address] Manoj Lala Glucose [Mass/Vol] 202 mg/dL Critically high 74-106 [facility] Comment on above: Performed By: #### B MP #### [facility] [address] [address] [address] Manoj Lala Potassium [Moles/Vol] 4.3 mmol/L Normal 3.5-5.[address] [facility] Comment on above: Performed By: #### B MP #### [facility] [address] [address] [address] Manoj Lala Sodium [Moles/Vol] 137 mmol/L Normal 136-145 [facility] Comment on above: Performed By: #### B MP #### [facility] [address] [address] [address] Manoj Lala Urea nitrogen [Mass/Vol] 18.0 mg/dL Normal 7.0-18.[address] [facility] Comment on above: Performed By: #### B MP #### [facility] [address] [address] [address] Manoj Lala Urea nitrogen/Creatinine [Mass ratio] 17.6 mg/mg Normal [facility] Comment on above: Performed By: #### B MP #### [facility] [address] [address] [address] Manoj Lala GLYCOHEMOGLOBIN A1Con 2021 ADA RECOMMENDATION SEE BELOW Normal [facility] Comment on above: Result Comment: ADA RECOMMENDED LIMIT 4.0 - 6.0 ADA THERAPEUTIC TARGET < 7.0 ACTION SUGGESTED > 7.0 Performed By: #### A 1C #### [facility] [address] [place] [address] Dr. Manoj Lala Glucose [Mass/Vol] 243 mg/dL Normal [facility] Comment on above: Performed By: #### A 1C #### [facility] [address] [place] [address] Dr. Manoj Lala HbA1c (Bld) [Mass fraction] 10.1 % Critically high 4.5-6.[address] [facility] Comment on above: Performed By: #### A 1C #### [facility] [address] [place] [address] Dr. Manoj Lala CBC AUTO DIFFon 11-28-2021 BASO # 0.0 103/ul Normal 0.0-0.[address] [facility] Comment on above: Performed By: #### C VDTBH #### [facility] [address] [place] [address] Dr. Manoj Lala Basophils/100 WBC (Bld) 0.5 % Normal 0.2-2.[address] [facility] Comment on above: Performed By: #### C VDTBH #### [facility] [address] [place] [address] Dr. Manoj Lala EO # 0.1 103/ul Normal 0.0-0.[address] [facility] Comment on above: Performed By: #### C VDTBH #### [facility] [address] [place] [address] Dr. Manoj Lala Eosinophils/100 WBC (Bld) 1.3 % Normal 0.9-7.[address] [facility] Comment on above: Performed By: #### C VDTBH #### [facility] [address] [place] [address] Dr. Manoj Lala Erythrocyte distribution width (RBC) [Ratio] 12.8 % Normal 11.0-15.[address] [facility] Comment on above: Performed By: #### C VDTBH #### [facility] [address] [place] [address] Dr. Manoj Lala Hematocrit (Bld) [Volume fraction] 41.4 % Critically low 42.0-54.[address] [facility] Comment on above: Performed By: #### C VDTBH #### [facility] [address] [place] [address] Dr. Manoj Lala Hemoglobin (Bld) [Mass/Vol] 13.4 g/dL Critically low 14.0-18.[address] [facility] Comment on above: Performed By: #### C VDTBH #### [facility] [address] [place] [address] Dr. Manoj Lala IG # 0.03 10e3/ul Normal 0.00-0.[address] [facility] Comment on above: Performed By: #### C VDTBH #### [facility] [address] [place] [address] Dr. Manoj Lala IG % 0.4 % Normal 0.0-0.[address] [facility] Comment on above: Performed By: #### C VDTBH #### [facility] [address] [place] [address] Dr. Manoj Lala LYMPH # 1.9 103/ul Normal 1.2-3.8 [facility] [facility] Comment on above: Performed By: #### C VDTBH #### [facility] [address] [place] [address] Dr. Manoj Lala Lymphocytes/100 WBC (Bld) 25.1 % Normal 20.5-60.[address] [facility] Comment on above: Performed By: #### C VDTBH #### [facility] [address] [place] [address] Dr. Manoj Lala MANUAL DIFF REQ NO Normal The [facility] Comment on above: Performed By: #### C VDTBH #### [facility] [address] [place] [address] Dr. Manoj Lala MCH (RBC) [Entitic mass] 29.6 pg Normal 25.9-34.[address] [facility] Comment on above: Performed By: #### C VDTBH #### [facility] [address] [place] [address] Dr. Manoj Lala MCHC (RBC) [Mass/Vol] 32.4 g/dL Normal 29.9-35.2 [facility] Comment on above: Performed By: #### C VDTBH #### [facility] [address] [place] [address] Dr. Manoj Lala MCV (RBC) [Entitic vol] 91.6 fL Normal 80.0-94.0 [facility] Comment on above: Performed By: #### C VDTBH #### [facility] [address] [place] [address] Dr. Manoj Lala MONO # 0.6 103/ul Normal 0.3-0.8 [facility] Comment on above: Performed By: #### C VDTBH #### [facility] [address] [place] [address] Dr. Manoj Lala Monocytes/100 WBC (Bld) 8.3 % Normal 1.7-12.0 [facility] Comment on above: Performed By: #### C VDTBH #### [facility] [address] [place] [address] Dr. Manoj Lala NEUT # 4.8 103/ul Normal 1.4-6.5 [facility] Comment on above: Performed By: #### C VDTBH #### [facility] [address] [place] [address] Dr. Manoj Lala Neutrophils/100 WBC (Bld) 64.4 % Normal 43.0-75.0 [facility] Comment on above: Performed By: #### C VDTBH #### [facility] [address] [place] [address] Dr. Manoj Lala Platelet mean volume (Bld) [Entitic vol] 9.9 fL Normal 9.5-13.5 [facility] Comment on above: Performed By: #### C VDTBH #### [facility] [address] [place] [address] Dr. Manoj Lala PLT 299 103/ul Normal 150-450 [facility] Comment on above: Performed By: #### C VDTBH #### [facility] [address] [address] [address] Manoj Lala RBC 4.52 106/ul Critically low 4.70-6.10 [facility] Comment on above: Performed By: #### C VDTBH #### [facility] [address] [place] [address] Dr. Manoj Lala WBC 7.5 103/ul Normal 4.0-11.[address] [facility] Comment on above: Performed By: #### C VDTBH #### [facility] [address] [place] [address] Dr. Manoj Lala GLYCOHEMOGLOBIN A1Con 2021 ADA RECOMMENDATION SEE BELOW Normal [facility] Comment on above: Result Comment: ADA RECOMMENDED LIMIT 4.0 - 6.0 ADA THERAPEUTIC TARGET < 7.0 ACTION SUGGESTED > 7.0 Performed By: #### A 1C #### [facility] [address] [place] [address] Dr. Manoj Lala Glucose [Mass/Vol] 223 mg/dL Normal [facility] Comment on above: Performed By: #### A 1C #### [facility] [address] [place] [address] Dr. Manoj Lala HbA1c (Bld) [Mass fraction] 9.4 % Critically high 4.5-6.[address] [facility] Comment on above: Performed By: #### A 1C #### [facility] [address] [place] [address] Dr. Manoj Lala LIPID PROFILEon 11-28-2021 CHOL-HDL RATIO NORM SEE BELOW Normal [facility] Comment on above: Result Comment: 3.3 - 4.4 LOW RISK 4.4 - 7.1 AVERAGE RISK 7.1 - 11.0 MODERATE RISK >11.0 HIGH RISK Performed By: #### C VDTBH #### [facility] [address] [place] [address] Dr. Manoj Lala Cholesterol [Mass/Vol] 134 mg/dL Normal <=[address] [facility] Comment on above: Performed By: #### C VDTBH #### [facility] [address] [place] [address] Dr. Manoj Lala Cholesterol in HDL [Mass/Vol] 41 mg/dL Normal 40-[address] [facility] Comment on above: Performed By: #### C VDTBH #### [facility] [address] [address] [address] Manoj Lala Cholesterol in LDL [Mass/Vol] 69.0 mg/dL Normal [facility] Comment on above: Performed By: #### C VDTBH #### [facility] [address] [address] [address] Manoj Lala Cholesterol.total/Ch olesterol in HDL [Mass ratio] 3.3 {ratio} Normal [facility] Comment on above: Performed By: #### C VDTBH #### [facility] [address] [place] [address] Dr. Manoj Lala HDL NORMAL > or = 60 mg/dl - LOW CARDIOVASCULAR RISK <40 mg/dl - HIGH CARDIOVASCULAR RISK Normal [facility] Comment on above: Performed By: #### C VDTBH #### [facility] [address] [place] [address] Dr. Manoj Lala LDL CALC NORMAL SEE BELOW Normal [facility] Comment on above: Result Comment: <100 mg/dl OPTIMAL 100 - 129 mg/dl NEAR OR ABOVE OPTIMAL 130 - 159 mg/dl BORDERLINE HIGH 160 - 189 mg/dl HIGH >190 mg/dl VERY HIGH Performed By: #### C VDTBH #### [facility] [address] [place] [address] Dr. Manoj Lala Triglyceride [Mass/Vol] 120 mg/dL Normal <=[address] [facility] Comment on above: Performed By: #### C VDTBH #### [facility] [address] [place] [address] Dr. Manoj Lala VLDL CALC 24.0 mg/dL Normal [facility] Comment on above: Performed By: #### C VDTBH #### [facility] [address] [place] [address] Dr. Manoj Lala LIVER PROFILEon 11-28-2021 Albumin [Mass/Vol] 3.5 g/dL Normal 3.4-5.0 [facility] Comment on above: Performed By: #### C VDTBH #### [facility] [address] [address] [address] Manoj Lala Albumin/Globulin [Mass ratio] 0.9 {ratio} Normal [facility] Comment on above: Performed By: #### C VDTBH #### [facility] [address] [address] [address] Manoj Lala ALP [Catalytic activity/Vol] 78 U/L Normal 46-[address] [facility] Comment on above: Performed By: #### C VDTBH #### [facility] [address] [address] [address] Manoj Lala ALT [Catalytic activity/Vol] 44 U/L Normal 16-[address] [facility] Comment on above: Performed By: #### C VDTBH #### [facility] [address] [place] [address] Dr. Manoj Lala AST [Catalytic activity/Vol] 24 U/L Normal 15-[address] [facility] Comment on above: Performed By: #### C VDTBH #### [facility] [address] [place] [address] Dr. Manoj Lala BILI, CONJUGATED 0.1 mg/dL Normal 0.0-0.2 [facility] Comment on above: Performed By: #### C VDTBH #### [facility] [address] [place] [address] Dr. Manoj Lala Bilirubin [Mass/Vol] 0.4 mg/dL Normal 0.2-1.[address] [facility] Comment on above: Performed By: #### C VDTBH #### [facility] [address] [place] [address] Dr. Manoj Lala Globulin (S) [Mass/Vol] 3.7 g/dL Normal [facility] Comment on above: Performed By: #### C VDTBH #### [facility] [address] [address] [address] Manoj Lala Protein [Mass/Vol] 7.2 g/dL Normal 6.4-8.2 [facility] Comment on above: Performed By: #### C VDTBH #### [facility] [address] [place] [address] Dr. Manoj Lala MICROALBUMIN, RAND URon 11-16 mALB <1.3 Normal <=30.[address] [facility] Comment on above: Performed By: #### M ALBR #### [facility] [address] [place] [address] Dr. Manoj Lala PROF CHEM 8 (BAS METB)on Anion gap [Moles/Vol] 11.1 mmol/L Normal [facility] Comment on above: Performed By: #### C VDTBH #### [facility] [address] [place] [address] Dr. Manoj Lala Calcium [Mass/Vol] 8.9 mg/dL Normal 8.5-10.1 [facility] Comment on above: Performed By: #### C VDTBH #### [facility] [address] [place] [address] Dr. Manoj Lala Chloride [Moles/Vol] 101 mmol/L Normal 98-[address] [facility] Comment on above: Performed By: #### C VDTBH #### [facility] [address] [place] [address] Dr. Manoj Lala CO2 [Moles/Vol] 29.1 mmol/L Normal 21.0-32.0 [facility] Comment on above: Performed By: #### C VDTBH #### [facility] [address] [place] [address] Dr. Manoj Lala Creatinine [Mass/Vol] 1.09 mg/dL Normal 0.70-1.[address] [facility] Comment on above: Performed By: #### C VDTBH #### [facility] [address] [place] [address] Dr. Manoj Lala EGFR-AF CENTRAL AFRICAN >60 Normal >=60 [facility] Comment on above: Performed By: #### C VDTBH #### [facility] [address] [place] [address] Dr. Manoj Lala EGFR-NON AF CENTRAL AFRICAN >60 Normal >=[address] [facility] Comment on above: Performed By: #### C VDTBH #### [facility] [address] [place] [address] Dr. Manoj Lala Glucose [Mass/Vol] 464 mg/dL Critically high 74-106 [facility] Comment on above: Performed By: #### C VDTBH #### [facility] [address] [place] [address] Dr. Manoj Lala Potassium [Moles/Vol] 4.2 mmol/L Normal 3.5-5.[address] [facility] Comment on above: Performed By: #### C VDTBH #### [facility] [address] [place] [address] Dr. Manoj Lala Sodium [Moles/Vol] 137 mmol/L Normal 136-145 [facility] Comment on above: Performed By: #### C VDTBH #### [facility] [address] [place] [address] Dr. Manoj Lala Urea nitrogen [Mass/Vol] 19.0 mg/dL Critically high 7.0-18.[address] [facility] Comment on above: Performed By: #### C VDTBH #### [facility] [address] [place] [address] Dr. Mnaoj Lala Urea nitrogen/Creatinine [Mass ratio] 17.4 mg/mg Normal [facility] Comment on above: Performed By: #### C VDTBH #### [facility] [address] [place] [address] Dr. Manoj Lala TSHon 11-28-2021 TSH 1.981 uIU/mL Normal 0.358-3.740 [facility] Comment on above: Performed By: #### C VDTBH #### [facility] [address] [place] [address] Dr. Manoj Lala TSH RANGE SEE BELOW Normal [facility] Comment on above: Result Comment: <0.3 4 UIU/ml HYPERTHYROID 0.34-5.60 UIU/ml EUTHYROID >5.60 UIU/ml HYPOTHYROID Performed By: #### C VDTBH #### [facility] [address] [place] [address] [id number] [address] Manoj Lala Aerobic Cultureon 06-06-2021 Aerobic Culture SITE: LEFT TOE ORGANISM: Staphylococcus aureus (O:STAAUR) Quantity of Growth Heavy Growth ORGANISM: Enterococcus faecalis (O:ENTFAC) Quantity of Growth Heavy Growth SITE: LEFT TOE ORGANISM: Bacteroides fragilis (O:BACFRA) Comments Sent to [facility] for Testing Quantity of Growth Moderate Growth Minimum inhibitory concentration Ampicillin Sulbact 16 Intermediate Metronidazole 0.5 Susceptible Ertapenem 4 Susceptible Bacteroides spp. are intrinsically resistant to ampicillin, penicillin, and aminoglycosides. Testing performed at [facility] SITE: LEFT TOE Gram Stain Result Rare White Blood Cells Rare Gram Positive Cocci Aerobic AN Charge (PC45) ----- SUSCEPTIBILITY ---- ORGANISM: O:STAAUR ANTIBIOTIC INTERPRETATION AN Amoxacillin/K Clavulanate S <4/2 Ampicillin PIYUSH 8 Ampicillin/Sulbactam S <8/4 Azithromycin S <2 Cefazolin S <8 Ceftaroline S <0.5 Ceftriaxone S <8 Ciprofloxacin S <1 Clindamycin S <0.5 Daptomycin S <1 Erythromycin S <0.25 Levofloxacin S <1 Linezolid S <2 Meropenem S <4 Oxacillin S 0.5 Penicillin PIYUSH 8 Piperacillin/Tazobac andres S <4 Rifampin S <1 Tetracycline S <4 Trimethoprim/Sulfame thoxazole S <0.5/9.5 Vancomycin S 1 Aerobic AN Charge (PC45) ----- SUSCEPTIBILITY ---- ORGANISM: O:ENTFAC ANTIBIOTIC INTERPRETATION AN Ampicillin S [...] RESISTANT TO ALL B-LACTAM DRUGS. PERFORMED BY: [place] [id number] PATHOLOGIST SKILL TRAINING PROGRAM COORDINATOR MARIELLA KWOK M.D. [facility] Comment on above: Performed By: #### G S, AERC #### [facility] [address] [place], [place] [id number] [facility] Gram Stainon 06-06-2021 Microscopic observation Gram stain Nom (Unsp spec) SITE: LEFT TOE Gram Stain Result Rare White Blood Cells Rare Gram Positive Cocci PERFORMED BY: [place] [id number] PATHOLOGIST SKILL TRAINING PROGRAM COORDINATOR MARIELLA KWOK M.D. [facility] Comment on above: Performed By: #### G S, AERC #### [facility] [address] [place], [place] [id number] [facility] Vital Signs Date Time Vital Sign Value Performing Clinician Facility 02-14-2024 15:30-0400 Blood Pressure Location ROSYSAFIA MCGREGOR [facility] 02-14-2024 15:30-0400 Diastolic blood pressure 77 mm[Hg] ROSY MECHE [facility] 02-14-2024 15:30-0400 Heart rate 80 /min ROSY MCGREGOR [facility] 02-14-2024 15:30-0400 Respiratory rate 18 /min ROSY MECHE [facility] 02-14-2024 15:30-0400 Systolic blood pressure 133 mm[Hg] ROSY MECHE [facility] 12-27-2023 13:57-0400 Blood Pressure Location ROSY MCGREGOR [facility] 12-27-2023 13:57-0400 Diastolic blood pressure 86 mm[Hg] ROSY MCGREGOR [facility] 12-27-2023 13:57-0400 Heart rate 85 /min ROSY MCGREGOR [facility] 12-27-2023 13:57-0400 Systolic blood pressure 149 mm[Hg] ROSY MCGREGOR [facility] 08-02-2023 14:48-0500 Body height 180.3 cm Jay Tai MD Work Phone: [facility] 08-02-2023 14:48-0500 Body mass index (BMI) [Ratio] 28.59 kg/m2 Jay Tai MD Work Phone: [facility] 08-02-2023 14:48-0500 Body temperature 96.91 [degF] Jay Tai MD Work Phone: [facility] 08-02-2023 14:48-0500 Body weight 92.99 kg Jay Tai MD Work Phone: [facility] 08-02-2023 14:48-0500 Diastolic blood pressure 70 mm[Hg] Jay Tai MD Work Phone: [facility] 08-02-2023 14:48-0500 Heart rate 90 /min Jay Tai MD Work Phone: [facility] 08-02-2023 14:48-0500 SaO2% (BldA) [Mass fraction] 100 % Jay Tai MD Work Phone: [facility] 08-02-2023 14:48-0500 Systolic blood pressure 128 mm[Hg] Jay Tai MD Work Phone: [facility] 05-30-2023 17:20-0500 Body height 180.34 cm Sultana Benson Other [facility] Other 05-30-2023 17:20-0500 Body mass index (BMI) [Ratio] 28.59 kg/m2 Sultana Kelley Other [facility] Other 05-30-2023 17:20-0500 Body temperature 99.1 [degF] Sultana Benson Other [facility] Other 05-30-2023 17:20-0500 Body weight 92.99 kg Sultana Alarconmond Other [facility] Other 05-30-2023 17:20-0500 Diastolic blood pressure 72 mm[Hg] Sultana Alarconmond Other [facility] Other 05-30-2023 17:20-0500 Respiratory rate 18 /min Sultana Alarconmond Other [facility] Other 05-30-2023 17:20-0500 SaO2% (BldA) [Mass fraction] 96 % Sultana Alarconmond Other [facility] Other 05-30-2023 17:20-0500 Systolic blood pressure 118 mm[Hg] Sultana Kelley Other [facility] Other 08-18-2022 09:15-0500 Body height 180.34 cm Martha Delgado Other [facility] Other 08-18-2022 09:15-0500 Body mass index (BMI) [Ratio] 27.89 kg/m2 Martha Delgado Other [facility] Other 08-18-2022 09:15-0500 Body temperature 97.7 [degF] Martha Delgado Other [facility] Other 08-18-2022 09:15-0500 Body weight 90.72 kg Martha Delgado Other [facility] Other 08-18-2022 09:15-0500 Respiratory rate 18 /min Martha Delgado Other [facility] Other 08-18-2022 09:15-0500 SaO2% (BldA) [Mass fraction] 99 % Martha Delgado Other [facility] Other 04-19-2022 15:25-0400 Body height 180.34 cm Sultana Alarconmond Other [facility] Other 04-19-2022 15:25-0400 Body mass index (BMI) [Ratio] 27.89 kg/m2 Sultana Alarconmond Other [facility] Other 04-19-2022 15:25-0400 Body temperature 98.2 [degF] Sultana Alarconmond Other [facility] Other 04-19-2022 15:25-0400 Body weight 90.72 kg Sultana Alarconmond Other [facility] Other 04-19-2022 15:25-0400 Diastolic blood pressure 73 mm[Hg] Sultana Kelley Other [facility] Other 04-19-2022 15:25-0400 Respiratory rate 18 /min Sultana Alarconmond Other [facility] Other 04-19-2022 15:25-0400 SaO2% (BldA) [Mass fraction] 97 % Sultana Benson Other [facility] Other 04-19-2022 15:25-0400 Systolic blood pressure 118 mm[Hg] Sultana Benson Other [facility] Other 06-06-2021 11:05-0500 Body height 180.34 cm Martha Ginty Other [facility] Other 06-06-2021 11:05-0500 Body mass index (BMI) [Ratio] 31.8 kg/m2 Martha Ginty Other [facility] Other 06-06-2021 11:05-0500 Body temperature 96.9 [degF] Martha Ginty Other [facility] Other 06-06-2021 11:05-0500 Body weight 103.42 kg Martha Ginty Other [facility] Other 06-06-2021 11:05-0500 Diastolic blood pressure 80 mm[Hg] Martha Ginty Other [facility] Other 06-06-2021 11:05-0500 Respiratory rate 18 /min Martha Ginty Other [facility] Other 06-06-2021 11:05-0500 SaO2% (BldA) [Mass fraction] 99 % Martha Ginty Other [facility] Other 06-06-2021 11:05-0500 Systolic blood pressure 144 mm[Hg] Martha Ginty Other [facility] Other 03-30-2021 18:20-0400 Body height 180.34 cm Sultana Benson Other [facility] Other 03-30-2021 18:20-0400 Body mass index (BMI) [Ratio] 31.8 kg/m2 Sultana Benson Other [facility] Other 03-30-2021 18:20-0400 Body temperature 97.7 [degF] Sultana Benson Other [facility] Other 03-30-2021 18:20-0400 Body weight 103.42 kg Sultana Benson Other [facility] Other 03-30-2021 18:20-0400 Diastolic blood pressure 82 mm[Hg] Sultana Benson Other [facility] Other 03-30-2021 18:20-0400 Respiratory rate 18 /min Sultana Benson Other [facility] Other 03-30-2021 18:20-0400 SaO2% (BldA) [Mass fraction] 95 % Sultana Benson Other [facility] Other 03-30-2021 18:20-0400 Systolic blood pressure 131 mm[Hg] Sultana Benson Other [facility] Other Encounters Encounter Date Encounter Type Care Provider Facility Start: 02-14-2024 ambulatory PA-C ROSY MCGREGOR Facility:[facility] Start: 02-14-2024 End: 02-14-2024 Patient encounter procedure ROSY MCGREGOR [facility] Start: 12-27-2023 End: 12-27-2023 ambulatory KADEN MCGREGOR Facility:[facility] Start: 12-27-2023 End: 12-27-2023 Patient encounter procedure ROSY MCGREGOR [facility] Start: 11-16-2023 ambulatory KADEN MCGREGOR Fac ility:[facility] Start: 11-15-2023 End: 11-15-2023 ambulatory JAY TAI Not Available Start: 08-02-2023 End: 08-02-2023 ambulatory JAY TAI Not Available Start: 08-02-2023 End: 08-02-2023 Office outpatient visit 15 minutes Jay Tai MD Work Phone: [facility] Comment on above: Type 2 diabetes kojo itus with hyperglycemia, with long-term current use of insulin ([facility]) (Primary Dx); Erectile dysfunction of organic origin; Type 2 diabetes mellitus with other specified complication, with long-term current use of insulin (CMS/[facility]); Type 2 diabetes mellitus with right eye affected by mild nonproliferative retinopathy without macular edema, with long-term current use of insulin (CMS/HCC) Start: 08-02-2023 Ingrid Tai MD Work Phone: [facility] Start: 08-02-2023 Ingrid Tai MD Work Phone: [facility] Start: 06-06-2023 End: 06-06-2023 ambulatory JAY TAI Not Available Start: 05-30-2023 End: 05-30-2023 ambulatory Sultana Benson Other [facility] Other Start: 05-30-2023 Office outpatient vi sit 15 minutes Sultana Benson [facility] Start: 10-03-2022 End: 10-04-[address] JAY TAI Facility:[facility] Start: 08-22-[address] JAY TAI [facility] ity:H1 Start: 08-18-2022 End: 08-18-2022 ambulatory Martha Delgado Other [employer] Other Start: 08-18-2022 Office outpatient vi sit 15 minutes Martha Delgado [facility] Start: 07-31-2022 End: 08-01-2022 ambulatory PACHECO [facility] Facility:[facility] Start: 07-14-2022 End: 07-15-2022 ambulatory PACHECO Rievra [facility] Facility:[facility]1 Start: 07-03-2022 End: 07-04-2022 ambulatory PACHECO [facility] Facility:[facility] Start: 06-26-2022 End: 06-26-[address] JAY TAI Facility:[facility] Start: 06-25-2022 Encounter for preprocedural cardiovascular examination [facility] Start: 06-25-2022 Encounter for preprocedural laboratory examination [facility] Start: 06-22-2022 End: 06-23-[address] JAY TAI Facility:[facility] Start: 06-22-2022 End: 06-23-2022 Encounter for preprocedural laboratory examination DR JAY TAI Facility:[facility]1 Start: 06-20-2022 End: 06-21-[address] JAY TAI Facility:[facility] Start: 06-07-2022 End: 06-08-[address] JAY TIA Facility:[facility]1 Start: 06-02-2022 End: 06-03-2022 ambulatory PACHECO Rivera [facility] Facility:H1 Start: 05-19-2022 End: 05-20-2022 ambulatory PACHECO D [facility] Facility:H1 Start: 05-12-2022 End: 05-13-2022 ambulatory PETER D [facility] Facility:H1 Start: 05-02-2022 End: 05-03-2022 ambulatory PETER D [facility] Facility:H1 Start: 05-01-2022 End: 05-02-2022 ambulatory [facility] Facility:[facility]1 Start: 04-19-2022 End: 04-19-2022 ambulatory Sultana Benson Other [facility] Other Start: 04-19-2022 Office outpatient vi sit 15 minutes Sultana Benson [facility] Start: 12-01-2021 Encounter for genera l adult medical examination without abnormal findings DR JAY TAI [facility] Start: 11-28-2021 End: 11-29-[address] JAY TAI Facility:[facility]1 Start: 11-28-2021 End: 11-29-2021 Encounter for general adult medical examination without abnormal findings DR JAY TAI Facility:[facility]1 Start: 06-06-2021 End: 06-06-2021 ambulatory Martha Ginty [facility] [employer] Other Start: 06-06-2021 Office outpatient vi sit 15 minutes Martha Ginty [facility] Start: 03-30-2021 Office outpatient vi sit 15 minutes Sultana Kelley [facility] Start: 08-07-2017 Ambulatory PHYSICIAN [facility] Procedures Date Procedure Procedure Detail Performing Clinician Start: 11-28-2021 PSA screening PACHECO GROSS Comment on above: Performed By: #### P [facility] #### [facility] [address] [place] [address] Dr. Manoj Lala Plan of Treatment Date Care Activity Detail Author Start: 06-06-2024 Screening for malign ant neoplasm of colon Colorectal Cancer Screening [facility] Comment on above: Postponed from 03/24 (Patient Refused) Start: 03-30-2024 Urine screening for protein Diabetes: Urine Protein Screening [facility] Start: 10-29-2023 End: 10-29-2023 Patient encounter procedure 10/29/2023 3:45 PM EDT [facility] [address] [place] [id number] Jay Tai MD [address] [place] [id number] [facility] Start: 08-02-2023 End: 08-02-2024 Hemoglobin A1c/Hemoglobin.total in Blood Hemoglobin A1c Lab Routine Type 2 diabetes mellitus with hyperglycemia, with long-term current use of insulin ([facility]) Expected: 08/02/2023 (Approximate), Expires: 08/02/2024 [facility] Work Phone: Comment on above: Expected: 08/02/2023 (Approximate), Expires: 08/02/2024 Start: 06-30-2023 Hemoglobin A1c measurement Diabetes: Hemoglobin A1C [facility] Start: 02-16-2023 Influenza vaccination Influenza Vacc ine (#1) [facility] Start: 10-23-2019 Glaucoma screening Diabetes: R etinopathy Screening [facility] Start: 1960 Screening for malign ant neoplasm of colon [facility] Immunizations Immunization Date Immunization Notes Care Provider Ez petty 05-09-2022 influenza virus vacc ine, unspecified formulation Jay Tai MD Work Phone: [facility] Payers Date Payer Category Payer Unknown BCBS BCBS xxxxxx [id number] 2018-Present [phone] [address] [place] [address] [id number] 1962 Unknown [id number] 2.16.840.1.815384.3.579.2. 593 1962 Unknown [id number] 2.16.840.1.072221.3.579.2. 593 1962 Unknown [id number] 2.16.840.1.261352.3.579.2. 593 1962 Unknown [id number] 2.16.840.1.602415.3.579.2. 593 1962 Unknown [id number] 2.16.840.1.412565.3.579.2. 593 1962 Unknown [id number] 2.16.840.1.549698.3.579.2. 593 1962 Unknown [id number] 2.16.840.1.994312.3.579.2. 593 1962 Unknown [id number] 2.16.840.1.197469.3.579.2. 593 1962 Unknown [id number] 2.16.840.1.785844.3.579.2. 593 1962 Unknown [id number] 2.16.840.1.650974.3.579.2. 593 1962 Unknown [id number] 2.16.840.1.262597.3.579.2. 593 1962 Unknown [id number] 2.16.840.1.516559.3.579.2. 593 1962 Unknown [id number] 2.16.840.1.790689.3.579.2. 593 1962 Unknown [id number] 2.16.840.1.666827.3.579.2. 593 1962 Unknown [id number] 2.16.840.1.257744.3.579.2. 593 1962 Unknown [id number] 2.16.840.1.264309.3.579.2. 1259 1962 Unknown [id number] 2.16.840.1.810208.3.579.2. 1259 1962 Unknown [id number] 2.16.840.1.627211.3.579.2. 1259 1962 Unknown [id number] 2.16.840.1.996201.3.579.2. 727 1962 Unknown [id number] 2.16.840.1.923344.3.579.2. 727 1962 Unknown [id number] 2.16.840.1.841886.3.579.2. 727 1959 Blue Cross Blue Shield [id number] 2.16.840.1.027093.19 Social History Date Type Detail Facility Start: 06-05-2023 End: 08-02-2023 Sex Assigned At [facility] Start: 07-11-2023 End: 02-14-2024 Tobacco smoking status NHIS Never smoked tobacco [facility] Start: 07-11-2023 Tobacco use and exposure Smokeless t obacco non-user [facility] Start: 07-11-2023 End: 08-02-2023 Alcohol intake Lifetime non-drinker (finding) [facility] Start: 06-05-2023 End: 08-02-2023 History of Social function [facility] Within the last year , have you been afraid of your partner or ex-partner? Patient declined [facility] Are you now , , , , never or living with a partner? [facility] Do you feel stress - tense, restless, nervous, or anxious, or unable to sleep at night because your mind is troubled all the time - these days [OSQ] Not at all [facility] Start: 07-11-2023 Tobacco Comment Uses chewing tobacco [facility] Start: 06-22-2023 Alcohol Comment caffeine intak e : coffee, soda [facility] Start: 1960 Sex Assigned At Not on file [facility] History of tobacco use Passive smoker [facility] Start: 08-02-2023 Tobacco use and exposure User of smo keless tobacco [facility] History of tobacco use Snuff User [facility] Medical Equipment Procedure Code Equipment Code Equipment Origin al Text Equipment Identifier Dates USE 1 PEN NEEDLE DIRECTED [id number] Start: 04-29-2023 Functional Status Date Assessment Result Facility 02-14-2024 Functional Status N/A [facility] 12-27-2023 Functional Status N/A [facility] Clinical Notes 03-30-2021 to 02-14-2024 Jay Tai MD - 08/02/2023 3:32 PM Desire Tai MD - 08/02/2023 3:31 PM Desire Tai MD - 08/02/2023 2:45 PM EST Note Date & Type Note Facility 02-14-2024 Hospital Discharg e instructions Patient Education 02/14/2024 15:32:39 Erectile Dysfunction Erectile Dysfunction Erectile dysfunction (ED) is the inability to get or keep an erection in order to have sexual intercourse. ED is considered a symptom of an underlying disorder and is not considered a disease. ED may include: Inability to get an erection. Lack of enough hardness of the erection to allow penetration. Loss of erection before sex is finished. What are the causes? This condition may be caused by: Physical causes, such as: ?Artery problems. This may include heart disease, high blood pressure, atherosclerosis, and diabetes. ?Hormonal problems, such as low testosterone. ?Obesity. ?Nerve problems. This may include back or pelvic injuries, multiple sclerosis, Parkinson's disease, spinal cord injury, and stroke. Certain medicines, such as: ?Pain relievers. ?Antidepressants. ?Blood pressure medicines and water pills (diuretics). ?Cancer medicines. ?Antihistamines. ?Muscle relaxants. Lifestyle factors, such as: ?Use of drugs such as marijuana, cocaine, or opioids. ?Excessive use of alcohol. ?Smoking. ?Lack of physical activity or exercise. Psychological causes, such as: ?Anxiety or stress. ?Sadness or depression. ?Exhaustion. ?Fear about sexual performance. ?Guilt. What are the signs or symptoms? Symptoms of this condition include: Inability to get an erection. Lack of enough hardness of the erection to allow penetration. Loss of the erection before sex is finished. Sometimes having normal erections, but with frequent unsatisfactory episodes. Low sexual satisfaction in either partner due to erection problems. A curved penis occurring with erection. The curve may cause pain, or the penis may be too curved to allow for intercourse. Never having nighttime or morning erections. How is this diagnosed? This condition is often diagnosed by: Performing a physical exam to find other diseases or specific problems with the penis. Asking you detailed questions about the problem. Doing tests, such as: ?Blood tests to check for diabetes mellitus or high cholesterol, or to measure hormone levels. ?Other tests to check for underlying health conditions. ?An ultrasound exam to check for scarring. ?A test to check blood flow to the penis. Doing a sleep study at home to measure nighttime erections. How is this treated? This condition may be treated by: Medicines, such as: ?Medicine taken by mouth to help you achieve an erection (oral medicine). ?Hormone replacement therapy to replace low testosterone levels. ?Medicine that is injected into the penis. Your health care provider may instruct you how to give yourself these injections at home. ?Medicine that is delivered with a short applicator tube. The tube is inserted into the opening at the tip of the penis, which is the opening of the urethra. A tiny pellet of medicine is put in the urethra. The pellet dissolves and enhances erectile function. This is also called MUSE (medicated urethral system for erections) therapy. Vacuum pump. This is a pump with a ring on it. The pump and ring are placed on the penis and used to create pressure that helps the penis become erect. Penile implant surgery. In this procedure, you may receive: ?An inflatable implant. This consists of cylinders, a pump, and a reservoir. The cylinders can be inflated with a fluid that helps to create an erection, and they can be deflated after intercourse. ?A semi-rigid implant. This consists of two silicone rubber rods. The rods provide some rigidity. They are also flexible, so the penis can both curve downward in its normal position and become straight for sexual intercourse. Blood vessel surgery to improve blood flow to the penis. During this procedure, a blood vessel from a different part of the body is placed into the penis to allow blood to flow around (bypass) damaged or blocked blood vessels. Lifestyle changes, such as exercising more, losing weight, and quitting smoking. Follow these instructions at home: Medicines Take euat-ncx-hbcieel and prescription medicines only as told by your health care provider. Do not increase the dosage without first discussing it with your health care provider. If you are using self-injections, do injections as directed by your health care provider. Make sure you avoid any veins that are on the surface of the penis. After giving an injection, apply pressure to the injection site for 5 minutes. Talk to your health care provider about how to prevent headaches while taking ED medicines. These medicines may cause a sudden headache due to the increase in blood flow in your body. General instructions Exercise regularly, as directed by your health care provider. Work with your health care provider to lose weight, if needed. Do not use any products that contain nicotine or tobacco. These products include cigarettes, chewing tobacco, and vaping devices, such as e-cigarettes. If you need help quitting, ask your health care provider. Before using a vacuum pump, read the instructions that come with the pump and discuss any questions with your health care provider. Keep all follow-up visits. This is important. Contact a health care provider if: You feel nauseous. You are vomiting. You get sudden headaches while taking ED medicines. You have any concerns about your sexual health. Get help right away if: You are taking oral or injectable medicines and you have an erection that lasts longer than 4 hours. If your health care provider is unavailable, go to the nearest emergency room for evaluation. An erection that lasts much longer than 4 hours can result in permanent damage to your penis. You have severe pain in your groin or abdomen. You develop redness or severe swelling of your penis. You have redness spreading at your groin or lower abdomen. You are unable to urinate. You experience chest pain or a rapid heartbeat (palpitations) after taking oral medicines. These symptoms may represent a serious problem that is an emergency. Do not wait to see if the symptoms will go away. Get medical help right away. Call your local emergency services (911 in the [place] Do not drive yourself to the hospital. Summary Erectile dysfunction (ED) is the inability to get or keep an erection during sexual intercourse. This condition is diagnosed based on a physical exam, your symptoms, and tests to determine the cause. Treatment varies depending on the cause and may include medicines, hormone therapy, surgery, or a vacuum pump. You may need follow-up visits to make sure that you are using your medicines or devices correctly. Get help right away if you are taking or injecting medicines and you have an erection that lasts longer than 4 hours. This information is not intended to replace advice given to you by your health care provider. Make sure you discuss any questions you have with your health care provider. Document Revised: 08/31/2021 Document Reviewed: 08/31/2021 [employer] Patient Education 2022 [employer] Follow Up Care 12/27/2023 14:35:32 With:ROSY MCGREGOR PA-C, URL Address: [address] [place] [phone] When: Unknown Comments:1 month f/u for [facility] teaching [facility] 12-27-2023 Hospital Discharg e instructions Patient Education 12/27/2023 14:41:52 Erectile Dysfunction Erectile Dysfunction Erectile dysfunction (ED) is the inability to get or keep an erection in order to have sexual intercourse. ED is considered a symptom of an underlying disorder and is not considered a disease. ED may include: Inability to get an erection. Lack of enough hardness of the erection to allow penetration. Loss of erection before sex is finished. What are the causes? This condition may be caused by: Physical causes, such as: ?Artery problems. This may include heart disease, high blood pressure, atherosclerosis, and diabetes. ?Hormonal problems, such as low testosterone. ?Obesity. ?Nerve problems. This may include back or pelvic injuries, multiple sclerosis, Parkinson's disease, spinal cord injury, and stroke. Certain medicines, such as: ?Pain relievers. ?Antidepressants. ?Blood pressure medicines and water pills (diuretics). ?Cancer medicines. ?Antihistamines. ?Muscle relaxants. Lifestyle factors, such as: ?Use of drugs such as marijuana, cocaine, or opioids. ?Excessive use of alcohol. ?Smoking. ?Lack of physical activity or exercise. Psychological causes, such as: ?Anxiety or stress. ?Sadness or depression. ?Exhaustion. ?Fear about sexual performance. ?Guilt. What are the signs or symptoms? Symptoms of this condition include: Inability to get an erection. Lack of enough hardness of the erection to allow penetration. Loss of the erection before sex is finished. Sometimes having normal erections, but with frequent unsatisfactory episodes. Low sexual satisfaction in either partner due to erection problems. A curved penis occurring with erection. The curve may cause pain, or the penis may be too curved to allow for intercourse. Never having nighttime or morning erections. How is this diagnosed? This condition is often diagnosed by: Performing a physical exam to find other diseases or specific problems with the penis. Asking you detailed questions about the problem. Doing tests, such as: ?Blood tests to check for diabetes mellitus or high cholesterol, or to measure hormone levels. ?Other tests to check for underlying health conditions. ?An ultrasound exam to check for scarring. ?A test to check blood flow to the penis. Doing a sleep study at home to measure nighttime erections. How is this treated? This condition may be treated by: Medicines, such as: ?Medicine taken by mouth to help you achieve an erection (oral medicine). ?Hormone replacement therapy to replace low testosterone levels. ?Medicine that is injected into the penis. Your health care provider may instruct you how to give yourself these injections at home. ?Medicine that is delivered with a short applicator tube. The tube is inserted into the opening at the tip of the penis, which is the opening of the urethra. A tiny pellet of medicine is put in the urethra. The pellet dissolves and enhances erectile function. This is also called MUSE (medicated urethral system for erections) therapy. Vacuum pump. This is a pump with a ring on it. The pump and ring are placed on the penis and used to create pressure that helps the penis become erect. Penile implant surgery. In this procedure, you may receive: ?An inflatable implant. This consists of cylinders, a pump, and a reservoir. The cylinders can be inflated with a fluid that helps to create an erection, and they can be deflated after intercourse. ?A semi-rigid implant. This consists of two silicone rubber rods. The rods provide some rigidity. They are also flexible, so the penis can both curve downward in its normal position and become straight for sexual intercourse. Blood vessel surgery to improve blood flow to the penis. During this procedure, a blood vessel from a different part of the body is placed into the penis to allow blood to flow around (bypass) damaged or blocked blood vessels. Lifestyle changes, such as exercising more, losing weight, and quitting smoking. Follow these instructions at home: Medicines Take qqeh-irw-cofseko and prescription medicines only as told by your health care provider. Do not increase the dosage without first discussing it with your health care provider. If you are using self-injections, do injections as directed by your health care provider. Make sure you avoid any veins that are on the surface of the penis. After giving an injection, apply pressure to the injection site for 5 minutes. Talk to your health care provider about how to prevent headaches while taking ED medicines. These medicines may cause a sudden headache due to the increase in blood flow in your body. General instructions Exercise regularly, as directed by your health care provider. Work with your health care provider to lose weight, if needed. Do not use any products that contain nicotine or tobacco. These products include cigarettes, chewing tobacco, and vaping devices, such as e-cigarettes. If you need help quitting, ask your health care provider. Before using a vacuum pump, read the instructions that come with the pump and discuss any questions with your health care provider. Keep all follow-up visits. This is important. Contact a health care provider if: You feel nauseous. You are vomiting. You get sudden headaches while taking ED medicines. You have any concerns about your sexual health. Get help right away if: You are taking oral or injectable medicines and you have an erection that lasts longer than 4 hours. If your health care provider is unavailable, go to the nearest emergency room for evaluation. An erection that lasts much longer than 4 hours can result in permanent damage to your penis. You have severe pain in your groin or abdomen. You develop redness or severe swelling of your penis. You have redness spreading at your groin or lower abdomen. You are unable to urinate. You experience chest pain or a rapid heartbeat (palpitations) after taking oral medicines. These symptoms may represent a serious problem that is an emergency. Do not wait to see if the symptoms will go away. Get medical help right away. Call your local emergency services (911 in the [place] Do not drive yourself to the hospital. Summary Erectile dysfunction (ED) is the inability to get or keep an erection during sexual intercourse. This condition is diagnosed based on a physical exam, your symptoms, and tests to determine the cause. Treatment varies depending on the cause and may include medicines, hormone therapy, surgery, or a vacuum pump. You may need follow-up visits to make sure that you are using your medicines or devices correctly. Get help right away if you are taking or injecting medicines and you have an erection that lasts longer than 4 hours. This information is not intended to replace advice given to you by your health care provider. Make sure you discuss any questions you have with your health care provider. Document Revised: 08/31/2021 Document Reviewed: 08/31/2021 [employer] Patient Education 2022 [employer] Follow Up Care 11/16/2023 13:48:14 With:ROSY MCGREGOR PA-C, URL Address: [id number] [place] [address] When:3 months [facility] 12-27-2023 Note Patient Education Urology Erectile Dysfunction Erectile dysfunction (ED) is the inability to get or keep an erection in order to have sexual intercourse. ED is considered a symptom of an underlying disorder and is not considered a disease. ED may include: ? Inability to get an erection. ? Lack of enough hardness of the erection to allow penetration. ? Loss of erection before sex is finished. What are the causes? This condition may be caused by: ? Physical causes, such as: ? Artery problems. This may include heart disease, high blood pressure, atherosclerosis, and diabetes. ? Hormonal problems, such as low testosterone. ? Obesity. ? Nerve problems. This may include back or pelvic injuries, multiple sclerosis, Parkinson's disease, spinal cord injury, and stroke. ? Certain medicines, such as: ? Pain relievers. ? Antidepressants. ? Blood pressure medicines and water pills (diuretics). ? Cancer medicines. ? Antihistamines. ? Muscle relaxants. ? Lifestyle factors, such as: ? Use of drugs such as marijuana, cocaine, or opioids. ? Excessive use of alcohol. ? Smoking. ? Lack of physical activity or exercise. ? Psychological causes, such as: ? Anxiety or stress. ? Sadness or depression. ? Exhaustion. ? Fear about sexual performance. ? Guilt. What are the signs or symptoms? Symptoms of this condition include: ? Inability to get an erection. ? Lack of enough hardness of the erection to allow penetration. ? Loss of the erection before sex is finished. ? Sometimes having normal erections, but with frequent unsatisfactory episodes. ? Low sexual satisfaction in either partner due to erection problems. ? A curved penis occurring with erection. The curve may cause pain, or the penis may be too curved to allow for intercourse. ? Never having nighttime or morning erections. How is this diagnosed? This condition is often diagnosed by: ? Performing a physical exam to find other diseases or specific problems with the penis. ? Asking you detailed questions about the problem. ? Doing tests, such as: ? Blood tests to check for diabetes mellitus or high cholesterol, or to measure hormone levels. ? Other tests to check for underlying health conditions. ? An ultrasound exam to check for scarring. ? A test to check blood flow to the penis. ? Doing a sleep study at home to measure nighttime erections. How is this treated? This condition may be treated by: ? Medicines, such as: ? Medicine taken by mouth to help you achieve an erection (oral medicine). ? Hormone replacement therapy to replace low testosterone levels. ? Medicine that is injected into the penis. Your health care provider may instruct you how to give yourself these injections at home. ? Medicine that is delivered with a short applicator tube. The tube is inserted into the opening at the tip of the penis, which is the opening of the urethra. A tiny pellet of medicine is put in the urethra. The pellet dissolves and enhances erectile function. This is also called MUSE (medicated urethral system for erections) therapy. ? Vacuum pump. This is a pump with a ring on it. The pump and ring are placed on the penis and used to create pressure that helps the penis become erect. ? Penile implant surgery. In this procedure, you may receive: ? An inflatable implant. This consists of cylinders, a pump, and a reservoir. The cylinders can be inflated with a fluid that helps to create an erection, and they can be deflated after intercourse. ? A semi-rigid implant. This consists of two silicone rubber rods. The rods provide some rigidity. They are also flexible, so the penis can both curve downward in its normal position and become straight for sexual intercourse. ? Blood vessel surgery to improve blood flow to the penis. During this procedure, a blood vessel from a different part of the body is placed into the penis to allow blood to flow around (bypass) damaged or blocked blood vessels. ? Lifestyle changes, such as exercising more, losing weight, and quitting smoking. Follow these instructions at home: Medicines ? Take ecdw-tch-ivaypgn and prescription medicines only as told by your health care provider. Do not increase the dosage without first discussing it with your health care provider. ? If you are using self-injections, do injections as directed by your health care provider. Make sure you avoid any veins that are on the surface of the penis. After giving an injection, apply pressure to the injection site for 5 minutes. ? Talk to your health care provider about how to prevent headaches while taking ED medicines. These medicines may cause a sudden headache due to the increase in blood flow in your body. General instructions ? Exercise regularly, as directed by your health care provider. Work with your health care provider to lose weight, if needed. ? Do not use any products that contain nicotine or tobacco. These (more content not included)... [facility] 08-02-2023 History of Presen t illness Narrative Associated Problem(s): Type 2 diabetes mellitus with hyperglycemia, with long-term current use of insulin ([facility]) Not checking BS and due for A1C. [...] hyperglycemia, with long-term current use of insulin ([facility]) - Primary Not checking BS and due for A1C. Need to check TID. Stick to ADA diet and limit carbs. Relevant Orders Hemoglobin A1c documented in this encounter [facility] 05-30-2023 Evaluation note Encounter Date Diagnosis Assessment [...] no improvement in 2 to 3 days [facility] Other 03-03-2023 Evaluation note* Encounter Date Diagnosis [...] understanding and is agreeable to treatment plan [facility] Other 01-09-2023 NotePROCEDURE: XR FOOT RT 2V HISTORY: Pain ; medial first toe wound COMPARISON: XR foot right 06/20/2022 FINDINGS: BONES:Multiple intraoperative spot fluoroscopic images demonstrate resection of bone from the medial aspect of the first toe proximal and distal phalanx. SOFT TISSUES:Expected intraoperative findings. EFFUSION:None visible. OTHER: Negative. IMPRESSION: 1. Partial bone excision from first toe. Electronically authenticated by: DENNY SHELDON Date: 2022-06-26 15:48[facility] [id number] NotePROCEDURE: XR FOOT RT MIN 3 VIEWS [...] Electronically authenticated by: DENNY SHELDON Date: 2022-06-21 11:19[facility] [id number] NotePROCEDURE: XR FOOT RT MIN 3 VIEWS [...] Electronically authenticated by: NICKI CABEZAS Date: 2022-05-02 07:41[facility]11-02-2022 Evaluation note* Encounter Date Diagnosis Assessment Notes [...] Diabetic foot u lcer material was printed Whim Other 12-20-2021 Evaluation note* Encounter Date Diagnosis Assessment Notes Treatment Notes Treatment Clinical Notes May, Type 2 diabetes mellitus without complication, unspecified whether retirement insulin use (ICD-10 - E11.9) Needs follow [...] understanding and is agreeable with treatment plan [facility] Other 10-13-2021 Evaluation note* Encounter Date Diagnosis [...] 2 diabetes mellitus without complication, unspecified whether retirement insulin use (ICD-10 - E11.9) [facility] Other Evaluation + Plan note Future Appointments Appointment Date:02/14/2024 03:00:00 PM Scheduled Provider:ROSY MCGREGOR PA-C Location:[facility] Appointment Type:URO Office Visit [facility] evaluation + Plan note Future Appointments Appointment Date:03/18/2024 03:00:00 PM Scheduled Provider:HUGO Marks APRN, [place] [facility] Location:[facility] Appointment Type:URO Office Visit [facility] evaluation note* Diagnosis Type 2 diabetes mellitus with other specified complication, with long-term current use of insulin ([facility]) 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 documented in this encounter [facility] Narrative - Reported* Type Description Date Medical History type I diabetes [facility]im Other History general Narrative - Reported* Type Description Date Medical History type I diabetes Surgical History toe surgery 2022 [facility] Other Hospital course Narrative No data available for this section [facility] progress note No data available for this section [facility] Summary Purpose Family History No Family History Records FoundNo Family History Records FoundNo Family History Records FoundNo Family History Records Found No data available for this section No Family History Records Found No data available for this section Advance Directives No Advanced Directives Records FoundNo Advanced Directives Records FoundNo Advanced Directives Records FoundNo Advanced Directives Records FoundNo Advanced Directives Records Found Reason for Referral Specialty Diagnoses / Procedures Referred By Jaimie arce Referred To Contact Diagnoses Erectile dysfunction of organic origin Jay Tai MD [address] [facility] [place] [address] Referral ID Status Reason Start Date Expiration Date Visits Re quested Visits Authorized [id number] Closed 1 1 Additional Source Comments (unrecognized sect ion and content) No Status Records FoundNo Status Records FoundNo Status Records FoundNo Status Records FoundNo Status Records Found INFORMATION SOURCE (unrecogn ized section and content) DATE CREATED AUTHOR 12/07/2017 [facility] DATE CREATED AUTHOR AUTHOR'S ORGANIZ ATION 06/17/2021 [facility] DATE CREATED AUTHOR AUTHOR'S ORGANIZ ATION 11/01/2022 [facility] DATE CREATED AUTHOR AUTHOR'S ORGANIZ ATION 11/16/2023 [facility] EPIC DATE CREATED AUTHOR AUTHOR'S ORGANIZ ATION 02/13/2024 [facility] REASON FOR VISIT (unrecogniz ed section and content) Reason Comments Follow-up Care Teams (unrecognized sec tion and content) Personnel Name: JAY TAI MD Address: Address: [address] [place] [address] Activities Attendant Relationship Specialty Start Date End Date Jay Tai MD [address] [place] [id number] PCP - General Family Medicine 08/02/23 Activities Attendant Relationship Specialty Start Date End Date Jay Tai MD [address] [place] [id number] PCP - General Family Medicine 08/02/23 FOR [...] BE BASED ON THE PRIMARY CLINICAL RECORDS. [facility]. provides no warranty or guarantee of the accuracy or completeness of information in this document.
[2024-03-05 14:58] LABS: Estimated Average Glucose 157 mg/dL; Glycohemoglobin A1C 7.1 % (4.5-6.2)
== END 2024-03-05 14:02 | disposition home or self-care (01) ==
LOC: LAB 14:02
PROVIDERS: PCP Family Medicine; Visit Provider Family Medicine
DX: E11.65 Type 2 diabetes mellitus with hyperglycemia (principal); Z79.4 Long term (current) use of insulin
CPT/HCPCS: 36415; 83036

== ENCOUNTER 2024-03-20 00:50 | Emergency (ER) | payer BC, SELFPAY ==
[2024-03-20 00:55] VITALS: BP 164/93; PULSE 73; TEMP 36.5; O2SAT 99; BMI 29.3
--- NOTE | 2024-03-20 01:16 | ED.MALEGU1 ---
HPI - Male Genitourinary General Chief complaint: Urogenital-Male Stated complaint: erectile dysfunction Time Seen by Provider: 03/20/24 00:53 Source: patient Mode of arrival: walk-in Limitations: no limitations History of Present Illness HPI Narrative: This 63-year-old male presents for evaluation of an erection that is starting to subside after taking an injectable erectile dysfunction medication called [employer] earlier in the evening. The patient states he recently received this medication and used it around 5 PM. He states the results were good and since that time he feels like his erection is not subsiding as it typically would. He called the pharmacy and was told to take Sudafed. He took 60 mg of Sudafed. At this time he feels like his erection is starting to subside but it still has a pulling/ stretching sensation. He applied ice as well. He is not having any abdominal pain or back pain. Related Data Home Medications ?Medication ?Instructions ?Recorded ?Confirmed atorvastatin 40 mg tablet mg 03/20/24 empagliflozin 25 mg tablet mg 03/20/24 (Jardiance) pen needle, diabetic 31 gauge x 03/20/24 03/20/24 3/16 (BD Ultra-Fine Mini Pen Needle) sildenafil 25 mg tablet mg 03/20/24 tadalafil 5 mg tablet mg 03/20/24 Allergies Allergy/AdvReac Type Severity Reaction Status Date / Time No Known Drug Allergies Allergy Verified 03/20/24 00:59 Review of Systems ROS Status of ROS 10 or more systems reviewed and unremarkable except as noted in history and below PFSH PFSH Social History Smoking status: Never smoker Little interest or pleasure in doing things: not at all Feeling down, depressed, or hopeless: not at all Exam Narrative Exam Narrative: Vital signs and Nursing Notes reviewed: Patient is afebrile with a normal pulse, blood pressure is elevated at 164/93, he is not hypoxic with pulse ox of 99% on room air General: Awake, alert, oriented, no acute distress, sitting comfortably in a chair HEENT: Normocephalic atraumatic, mucous membranes are moist and pink, eyes are clear, normal conjunctiva, vision is grossly intact ABD/: exam chaperoned by Alis KEENAN, penis is warm, pink with normal color and partially erect, there is no signs of ischemia, redness duskiness or other notable abnormality. Extremities: Moving all extremities Skin: Normal in appearance without rash,pallor, petechiae or purpura Neuro: No focal deficits Constitutional Vital Signs, click to edit/add: Last Vital Signs Temp 97.7 F 03/20/24 00:55 Pulse 73 03/20/24 00:55 Resp 16 03/20/24 00:55 BP 164/93 H 03/20/24 00:55 Pulse Ox 99 03/20/24 00:55 O2 Del Method Room Air 03/20/24 00:55 Course Vital Signs Vital signs: Vital Signs Temperature 97.7 F 03/20/24 00:55 Pulse Rate 73 03/20/24 00:55 Respiratory Rate 16 03/20/24 00:55 Blood Pressure 164/93 H 03/20/24 00:55 Pulse Oximetry 99 03/20/24 00:55 Oxygen Delivery Method Room Air 03/20/24 00:55 Temperature 97.7 F 03/20/24 00:55 Pulse Rate 73 03/20/24 00:55 Respiratory Rate 16 03/20/24 00:55 Blood Pressure 164/93 H 03/20/24 00:55 Pulse Oximetry 99 03/20/24 00:55 Oxygen Delivery Method Room Air 03/20/24 00:55 MDM - Male Genitourinary MDM Narrative Medical decision making narrative: This 63-year-old male presents for evaluation of an erection that has been ongoing since around 5 PM after taking an injectable erectile dysfunction medication. It is unclear whether he may have taken more than was recommended. After getting the erection the erection has only subsided minimally prompting him to come to the emergency department. He did take 60 mg of Sudafed which was what was recommended by the pharmacy. He is not having any pain. His penis is semierect with normal color and normal appearing blood flow. I did offer him a phenylephrine injection into the penis as an antidote to the erection but he declines. I suggested that he call the urologist in the morning if the erection has not subsided since that time and or return to the emergency department for the phenylephrine injection and to monitor his penis for color changes including redness, duskiness, blue discoloration or any pain. Discharge Plan Discharge Chief Complaint: Urogenital-Male Clinical Impression: Erectile disorder due to medical condition in male Patient Disposition: Home, Self-Care Time of Disposition Decision: 01:15 Condition: Fair Prescriptions / Home Meds: No Action atorvastatin 40 mg tablet sildenafil 25 mg tablet tadalafil 5 mg tablet (DME) pen needle, diabetic [BD Ultra-Fine Mini Pen Needle] 31 gauge x 3/16 needle MISCELLANEOUS Jardiance 25 mg tablet Print Language: Syriac Additional Instructions: Call Dr Carbone office in the morning for further recommendations. Return to the emergency department as needed or if you change your mind about getting the phenylephrine injection. Referrals: Jay Justice MD [Primary Care Provider] - 1 week
--- OUTSIDE RECORDS SUMMARY | 2024-03-20 01:22 | XMS_ITS | CCD ---
Author Organization [facility] CliniSyct Care Team Providers Care Construction Lineman Name Role Phone NO, PHYSICIAN Unavailable Unavailable [...] NADERER, DR JAY Lawson Primary Care Unavailable [place], DR NICKI Mazariegos Consulting Unavailable HIGHLANDER, PACHECO [...] JAY Lawson Attending Unavailable NADERER, DR JAY Lwason Admitting Unavailable NADERER, DR JAY Lawson Primary Care Unavailable NADERER, DR JAY Lawson Consulting Unavailable NADERER, DR JAY Lawson Attending Unavailable NADERER, DR JYA Lawson Admitting Unavailable HIGHLANDER, PACHECO Rivera Attending Unavailable PACHECO HART Admitting Unavailable ABIDA, DR JAY Lawson Primary Care Unavailable TANNER, PACHECO Rivera Consulting Unavailable NADDESHAUN, DR JAY Lawson Primary Care Unavailable HIGHLANDER, PACHECO Rivera Admitting Unavailable Denny Sheldon Consulting Unavailable HIGHLANDER, PACHECO Rivera Attending Unavailable HIGHLKERRY, PACHECO Rivera Consulting Unavailable ANABEL PÉREZ Consulting Unavailable MARIANA BUCKLEY Consulting Unavailable TANNER, PACHECO Rivera Attending Unavailable ABIDA, DR JAY Lawson Primary Care Unavailable HIGHLKERRY, PACHECO Rivera Admitting Unavailable HIGHLKERRY, PACHECO Rivera Attending Unavailable ABIDA, DR JAY Lawson Primary Care Unavailable HIGHLKERRY, PACHECO Rivera Admitting Unavailable Jay Tai MD Primary Care Provider NONE, XXXX Primary Care Physician Unavailab JAY Zimmerman Primary Care Physician [phone] JAY TAI Attending Unavailable JAY TAI Attending Unavailable JAY TAI Attending Unavailable JAY TAI Attending Unavailable HAYDEE MCGREGOR Attending Unavailable HAYDEE MCGREGOR Attending Unavailable HAYDEE MCGREGOR Attending Unavailable JAY TAI Referring Unavailable Allergies Allergy Classification Reported Allergen(s) Allergy Type Date of Onset Reaction(s) Facility (1 source) No Known Medication Allergies; Translations: [No Known Medication Allergies] Propensity to adverse reactions (disorder) [facility] Repository Medications Current Medications Medication Drug Class(es) Dates Sig (Normalized) Sig (Original) [id number] 60 actuat albuterol 0.09 mg/actuat metered dose [...] 20mg/24hrs., # 30 tab(s), Refills(s) 3, Pharmacy: 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 No changes compared to recent appt. No complaints. Physical Exam Vitals & Measurements HR: 92(Peripheral) BP: 146/84 HT: 71 in HT: 180 cm WT: 97.5 kg WT: 214.5 lb BMI: 30.09 Assessment/Plan 1. ED (erectile dysfunction) (N52.9: Male erectile dysfunction, unspecified) The patient was educated on the safe and correct use of intracavernous injection therapy. I utilized both written instructions, pictures, and hands-on demonstration. We reviewed the type of injection medication that we will use. Additionally, we discussed self-titration of the dosage of medication within the specified range. No barriers to learning were identified. After all of the patient?s questions were satisfactorily answered, he expressed understanding of the risks of therapy. Pt to call if does not achieve success despite max dose (100 units). This medication should not be used more than once in a 24-hour period. We reviewed the potential risks and side effects of intracavernous injection therapy, including but not limited to: local site pain, bleeding or hematoma at injection site, scarring at the injection site resulting in penile curvature, hypotension, syncope, or prolonged erection. We discussed that if he experiences erection lasting longer than four hours, he needs to seek immediate treatment at the emergency department as the longer he waits, the more damage that is done to the penile tissue. f/u 1 yr, sooner PRN. Ordered: E&M of Est. Patient Low 20-29 Min 60214 Follow-up With When Contact Information HAYDEE MCGREGOR PA-C, URL Within 1 year Additional Instructions: Patient Education Erectile Dysfunction Problem List/Past Medical History Ongoing Diabetes mellitus Dyslipidemia ED (erectile dysfunction) Multiple pulmonary nodules Historical No qualifying data Medications HumuLIN 70/30 KwikPen 70 units-30 units/mL subcutaneous suspension Jardiance 25 mg oral tablet papaverine-phentolam ine 30 mg-1 mg/mL injectable solution Allergies No Known Medication Allergies Social History Tobacco - Denies Tobacco Use, 02/14/2024 Never (less than 100 in lifetime) Tobacco Use:., 03/18/2024 Family History Diabetes: Father. [facility] Comment on above: Result Comment: Elec tronically Signed By: HAYDEE MCGREGOR PA-C\.br\Date and Time Signed: 03/18/24 14:41 EDT Ambulatory Visit Summaryon 0 02-14-2024 Ambulatory Visit Summary Ambulatory Visit Summary GRANT SANDY :1960 Visit Date:02/14/2024 Ambulatory Visit Instructions Your Diagnosis ED (erectile dysfunction) Your Care Team Attending Physician - HAYDEE MCGREGOR PA-C Primary Care Physician - JAY TAI MD This Is Your Medications List Contact prescribing physician if questions or concerns empagliflozin (Jardiance 25 mg oral tablet) insulin isophane-insulin regular (HumuLIN 70/30 KwikPen 70 units-30 units/mL subcutaneous suspension) [Image Removed: STOP]Stop taking these medications tadalafil (Cialis 5 mg oral tablet) tadalafil (tadalafil 5 mg oral tablet) Discharge Vitals Heart Rate (Peripheral) 80 Respiratory Rate 18 Blood Pressure 133/77 Height 180 cm Height 71 in Weight 97.5 kg Weight 214.5 lb BMI 30.09 What to do next Scheduled Follow-Up Appointments Sunday 3:00 PM EDT With: HUGO Marks APRN, [place] Where: [facility] [address] [place] [address]- You Need to Schedule the Following Appointments Follow Up with HAYDEE MCGREGOR PA-C, URL When: Comments: 1 month f/u for ICI teaching Where: [address] [place] [address] [phone] Medications What When Instructions Unchanged empagliflozin (Jardiance 25 mg oral tablet) Contact prescribing physician if questions or concerns Unchanged insulin isophane-insulin regular (HumuLIN 70/ 30 KwikPen 70 units-30 units/ mL subcutaneous suspension) Contact prescribing physician if questions or concerns What How Much When Comments Stop Taking tadalafil (Cialis 5 mg oral tablet) See instructions 3 tabs po 60 mins prior to sexual activity. do not exceed 20mg/ 24hrs. Stop Taking tadalafil (tadalafil 5 mg oral tablet) Allergies No Known Medication Allergies Problems Ongoing - Any problem that you are currently receiving treatment for. Diabetes mellitus Dyslipidemia ED (erectile dysfunction) Multiple pulmonary nodules Patient Survey You may receive a survey via text or e-mail asking about your office visit. Please share your experience with us by completing your survey. We appreciate your feedback and thank you for choosing us for your care. Education Materials Erectile Dysfunction Erectile dysfunction (ED) is the [...] achieve an erection (oral medicine). ? Hormone r (more content not included)... Normal [facility] Urology Office/Clinic Noteon 02-14-2024 Urology Office/Clinic Note Urology Office/Clinic Note Chief Complaint Patient is here for f/u to ED. HPI Staff 7 wk f/u for ED to trying vacuum device/rings and PRN dosing of Cialis 5mg. Patient did not get the vacuum device or rings. His girlfriend did not want him to spend the money. Patient is taking Cialis 5mg daily + 15mg PRN for a total of 20mg, only achieved plumpness, no true erection. Not firm enough for penetration. Denies any urinary issues. History of Present Illness staff HPI reviewed and agree. Review of Systems no fever, chills, malaise, myalgia. no rash/lesions. no chest pain, palpitations, or SOB. no abdominal pain, nausea, vomiting. no unilateral calf swelling, redness, pain Physical Exam Vitals & Measurements HR: 80(Peripheral) RR: 18 BP: 133/77 HT: 71 in HT: 180 cm WT: 97.5 kg WT: 214.5 lb BMI: 30.09 General: nontoxic, NAD Mouth: moist mucosa Lungs: normal respiratory effort Cardio: regular rate, good distal perfusion Abdomen: nondistended, no suprapubic distention or tenderness, no CVA tenderness Neurologic: Grossly normal Skin: No rashes or suspicious lesions Assessment/Plan IPSS 0 (0). 1. ED (erectile dysfunction) (N52.9: Male erectile dysfunction, unspecified) EVON 2 (1). Tried Sildenafil 100mg (4x25mg) but was not firm enough for penetration. Difficulty achieving and maintaining an erection. Also had difficulty with firmness and reaching climax. Hx of DM - A1c 8.4, recently started on Jardiance. UA today >1000mg/dL glucose. TODAY: Was to trial JESSICA and Cialis 5mg qd as recommended at prior OV. Did not try JESSICA as partner did not wish for him to buy one. Did try taking 3 tabs of Cialis 5mg PRN (in addition to the 5mg daily dose) and had minimal sx improvement. Given failure of both meds, advised pt next step would be ICI. Pt is interested. Risks/benefits discussed. ICI We reviewed the potential risks and side effects of intracavernous injection therapy, including but not limited to: local site pain, bleeding or hematoma at injection site, scarring at the injection site resulting in penile curvature, hypotension, syncope, or prolonged erection. We discussed that this modality is contraindicated in patients with a history of priapism, severe coagulopathy, unstable cardiovascular disease, and use on monoamine oxidase inhibitors. -D/c Cialis daily + PRN -F/u to learn ICI once rx [facility] Follow-up With When Contact Information MECHE ALFONSO, HAYDEE Pennington, URL [address] [place] [address] [phone] Additional Instructions: 1 month f/u for ICI teaching Patient Education Erectile Dysfunction Documentation recorded by the jamilah Adkins accurately reflects the services(s) I performed and decisions made by me. Authenticated by Haydee Mcgregor PA-C on 02/14/2024 15:37:49. IRuth, personally scribed for Haydee Mcgregor PA-C on 02/14/2024 15:35:22. . Problem List/Past Medical History Ongoing Diabetes mellitus Dyslipidemia ED (erectile dysfunction) Multiple pulmonary nodules Historical No qualifying data Medications HumuLIN 70/30 KwikPen 70 units-30 units/mL subcutaneous suspension Jardiance 25 mg oral tablet Allergies No Known Medication Allergies Social History Tobacco - Denies Tobacco Use, 02/14/2024 Never (less than 100 in lifetime) Tobacco Use:., 02/14/2024 Family History Diabetes: Father. Lab Results Ambulatory Point of Care Results Bilirubin Urine Dipstick: Negative (02/14/24 15:26:00) Blood Urine Dipstick: Negative (02/14/24 15:26:00) Glucose Urine Dipstick: 3+ 1000 mg/dl (02/14/24 15:26:00) Ketones Urine Dipstick: Negative (02/14/24 15:26:00) Leukocytes Urine Dipstick: Negative (02/14/24 15:26:00) Nitrite Urine Dipstick: Negative (02/14/24 15:26:00) Protein Urine Dipstick: Negative (02/14/24 15:26:00) Specific [place] Urine Dipstick: 1.020 (02/14/24 15:26:00) Urine Appearance Urine Dipstick: Clear (02/14/24 15:26:00) Urine Color Urine Dipstick: Yellow (02/14/24 15:26:00) Urobilinogen Urine Dipstick: Normal 0.2-1 EU/dl (02/14/24 15:26:00) pH Urine Dipstick: 5 (02/14/24 15:26:00) Normal [facility] Comment on above: Result Comment: Elec tronically Signed By: HAYDEE MCGREGOR PA-C\.br\Date and Time Signed: 02/14/24 15:38 EDT\.br\Electronically Co-Signed By: Ruth Adkins\.br\Date and Time Co-Signed: 02/14/24 15:35 EDT Ambulatory Visit Summaryon 0 12-27-2023 Ambulatory Visit Summary Ambulatory Visit Summary GRANT SANDY :1960 Visit Date:12/27/2023 Ambulatory Visit Instructions Your Diagnosis ED (erectile dysfunction) Your Care Team Attending Physician - HAYDEE MCGREGOR PA-C Primary Care Physician - NONE, [...] Follow-Up Appointments 2023 3:00 PM EDT With: MECHE ALFONSO, HAYDEE Pennington Where: [facility] Normal [facility] Urology Office/Clinic Noteon 12-27-2023 Urology Office/Clinic Note [...] E&M of New Patient Moderate 45-59 Min 27909 Urnls Dip Stick Auto w/o Microscopy POC [id number] Orders: tadalafil, See Instructions, PRN for erectile dysfunction, 3 tabs po 60 mins prior to sexual activity. do not exceed 20mg/24hrs., # 30 tab(s), Refills(s) 3, Pharmacy: [facility]/pharmacy #[id number], 180, cm, 12/27/23 14:03:00 EDT, Height/Length Dosing, 97.5, kg, 12/27/23 14... Follow-up With When Contact Information MECHE ALFONSO, HAYDEE Pennington, TERESA Within 3 months [address] [place] [address] Additional Instructions: Patient Education Erectile Dysfunction Problem [...] Protein Urine Dipstick: Negative (12/27/23 13:53:00) Specific [place] Urine Dipstick: 1.025 (12/27/23 13:53:00) Urine Appearance Urine Dipstick: Clear (12/27/23 13:53:00) Urine Color Urine Dipstick: Yellow (12/27/23 13:53:00) Urobilinogen Urine Dipstick: Normal 0.2-1 EU/dl (12/27/23 13:53:00) pH Urine Dipstick: 5.5 (12/27/23 13:53:00) Normal [facility] Comment on above: Result Comment: Elec tronically Signed By: MECHE ALFONSO, HAYDEE Pennington\.br\Date and Time Signed: 12/27/23 14:42 EDT COVID + FLU Quick Testingon 05-30-2023 SARS-CoV-2 (COVID-19) RNA JO+probe Ql (Unsp spec) Negative [employer] Other COVID + FLU Quick Testing Negative [employer] Other GLYCOHEMOGLOBIN A1Con 2022 ADA RECOMMENDATION SEE BELOW Normal [facility] Comment on above: Result Comment: ADA RECOMMENDED LIMIT 4.0 - 6.0 ADA THERAPEUTIC TARGET < 7.0 ACTION SUGGESTED > 7.0 Performed By: #### G STAIN #### [facility] [address] [place] [address] Dr. Manoj Lala Glucose [Mass/Vol] 249 mg/dL Normal [facility] Comment on above: Performed By: #### G STAIN #### [facility] [address] [place] [address] Dr. Manoj Lala HbA1c (Bld) [Mass fraction] 10.3 % Critically high 4.5-6.2 [facility] Comment on above: Performed By: #### G STAIN #### [facility] [address] [place] [address] Dr. Manoj Lala ACID FAST SMEAR AND CXon Acid Fast Culture Negative Normal [facility] Comment on above: Result Comment: No a sly fast bacilli isolated after 6 weeks. Performed By: #### A FB #### [facility] [address] [place] [address] Dr. Manoj Lala Acid Fast Smear Negative Normal [facility] Comment on above: Performed By: #### A FB #### [facility] [address] [place] [address] Dr. Manoj [employer]ala [employer] Specimen Processing Tissue Grinding [facility] Comment on above: Performed By: #### A FB #### [facility] [address] [place] [address] Dr. Manoj Lala FUNGAL CULTUREon 07-26-2022 Fungus (Mycology) Culture Final report [facility] Comment on above: Performed By: #### C XFUN #### [facility] [address] [place] [address] Dr. Manoj Lala Fungus Stain Final report Normal [facility] Comment on above: Performed By: #### C XFUN #### [facility] [address] [place] [address] Dr. Manoj Lala Result 1 Comment Normal [facility] Comment on above: Result Comment: GUCCI/ Calcofluor preparation: no fungus observed. Performed By: #### C XFUN #### [facility] [address] [place] [address] Dr. Manoj Lala Result Comment: No y east or mold isolated after 4 weeks. CULTURE ANAEROBICon 06-26-19 23 CULTURE ANAEROBIC Culture Observations: No growth of anaerobes at 72 hours. Normal [facility] Comment on above: Performed By: #### C VDTBH #### [facility] [address] [address] [address] Manoj Lala CULTURE OTHERon 06-26-2022 CULTURE OTHER Culture Observations: Light growth of normal skin kurtis Normal [facility] Comment on above: Performed By: #### C VDTBH #### [facility] [address] [address] [address] Manoj Lala GRAM STAINon 06-26-2022 COMMENTS NO ORGANISMS OBSERVED Normal [facility] Comment on above: Performed By: #### G STAIN #### [facility] [address] [address] [address] Manoj Lala DIPHTHEROIDS [facility] Comment on above: Performed By: #### G STAIN #### [facility] [address] [address] [address] Manoj Lala EPITHELIALS RARE Normal [facility] Comment on above: Performed By: #### G STAIN #### [facility] [address] [address] [address] Manoj Lala FUNGAL ELEMENTS Normal [facility] Comment on above: Performed By: #### G STAIN #### [facility] [address] [address] [address] Manoj YOUNGBLOOD NEG BACILLI Normal [facility] Comment on above: Performed By: #### G STAIN #### [facility] [address] [address] [address] Manoj YOUNGBLOOD NEG DIPPLOCOCCI Normal [facility] Comment on above: Performed By: #### G STAIN #### [facility] [address] [address] [address] Manoj YOUNGBLOOD POS BACILLI Normal [facility] Comment on above: Performed By: #### G STAIN #### [facility] [address] [address] [address] Manoj Lala GRAM POSITIVE COCCI Normal [facility] Comment on above: Performed By: #### G STAIN #### [facility] [address] [address] [address] Manoj Lala GRAM STAIN SOURCE Rt Hallux Bone Normal [facility] Comment on above: Performed By: #### G STAIN #### [facility] [address] [place] [address] Dr. Manoj Lala GS_DIPTH Normal [facility] Comment on above: Performed By: #### G STAIN #### [facility] [address] [place] [address] Dr. Manoj Lala WBC NONE SEEN Normal [facility] Comment on above: Performed By: #### G STAIN #### [facility] [address] [place] [address] Dr. Manoj Lala POINT OF CARE GLUCOSEon Glucose [Mass/Vol] 244 mg/dL Critically high 74-106 [facility] Comment on above: Performed By: #### G STAIN #### [facility] [address] [place] [address] Dr. Manoj Lala Glucose [Mass/Vol] 238 mg/dL Critically high 74-106 [facility] Comment on above: Performed By: #### P OCGLUC #### [facility] [address] [place] [address] Dr. Manoj Lala Covid-19 PCR (CVDTB)on SARS-CoV-2 (COVID-19) RNA JO+probe Ql (Unsp spec) Not detected Normal NOT DETECTED [facility] Comment on above: Result Comment: This test is not yet approved or cleared by the [place] FDA. When there are no FDA-approved or cleared tests available, and other criteria are met, FDA can make tests available under an emergency access mechanism called an Emergency Use Authorization (EUA). The EUA for this test is supported by the Fabrication Manager of Health and Human Service's (HHS's) declaration [...] SARS-CoV-2. Performed By: #### C VDTB #### [facility] [address] [place] [address] Dr. Manoj Lala PROF CHEM 8 (BAS METB)on Anion gap [Moles/Vol] 10.8 mmol/L Normal [facility] Comment on above: Performed By: #### B MP #### [facility] [address] [place] [address] Dr. Manoj Lala Calcium [Mass/Vol] 8.8 mg/dL Normal 8.5-10.1 [facility] Comment on above: Performed By: #### B MP #### [facility] [address] [place] [address] Dr. Manoj Lala Chloride [Moles/Vol] 102 mmol/L Normal 98-107 [facility] Comment on above: Performed By: #### B MP #### [facility] [address] [place] [address] Dr. Manoj Lala CO2 [Moles/Vol] 28.5 mmol/L Normal 21.0-32.0 [facility] Comment on above: Performed By: #### B MP #### [facility] [address] [place] [address] Dr. Manoj Lala Creatinine [Mass/Vol] 1.02 mg/dL Normal 0.70-1.30 [facility] Comment on above: Performed By: #### B MP #### [facility] [address] [place] [address] Dr. Manoj Lala EGFR-AF VINCENTIAN >60 Normal >=60 [facility] Comment on above: Performed By: #### B MP #### [facility] [address] [place] [address] Dr. Manoj Lala EGFR-NON AF VINCENTIAN >60 Normal >=60 [facility] Comment on above: Performed By: #### B MP #### [facility] [address] [place] [address] Dr. Manoj Lala Glucose [Mass/Vol] 202 mg/dL Critically high 74-106 [facility] Comment on above: Performed By: #### B MP #### [facility] [address] [address] [address] Manoj Lala Potassium [Moles/Vol] 4.3 mmol/L Normal 3.5-5.1 [facility] Comment on above: Performed By: #### B MP #### [facility] [address] [address] [address] Manoj Lala Sodium [Moles/Vol] 137 mmol/L Normal 136-145 [facility] Comment on above: Performed By: #### B MP #### [facility] [address] [address] [address] Manoj Lala Urea nitrogen [Mass/Vol] 18.0 mg/dL Normal 7.0-18.0 [facility] Comment on above: Performed By: #### B MP #### [facility] [address] [place] [address] Dr. Manoj Lala Urea nitrogen/Creatinine [Mass ratio] 17.6 mg/mg Normal [facility] Comment on above: Performed By: #### B MP #### [facility] [address] [place] [address] Dr. Manoj Lala GLYCOHEMOGLOBIN A1Con 2021 ADA RECOMMENDATION SEE BELOW Normal [facility] Comment on above: Result Comment: ADA RECOMMENDED LIMIT 4.0 - 6.0 ADA THERAPEUTIC TARGET < 7.0 ACTION SUGGESTED > 7.0 Performed By: #### A 1C #### [facility] [address] [place] [address] Dr. Manoj Lala Glucose [Mass/Vol] 243 mg/dL Normal [facility] Comment on above: Performed By: #### A 1C #### [facility] [address] [place] [address] Dr. Manoj Lala HbA1c (Bld) [Mass fraction] 10.1 % Critically high 4.5-6.2 [facility] Comment on above: Performed By: #### A 1C #### [facility] [address] [place] [address] Dr. Manoj Lala CBC AUTO DIFFon 11-28-2021 BASO # 0.0 103/ul Normal 0.0-0.1 [facility] Comment on above: Performed By: #### C VDTBH #### [facility] [address] [place] [address] Dr. Manoj Lala Basophils/100 WBC (Bld) 0.5 % Normal 0.2-2.0 [facility] Comment on above: Performed By: #### C VDTBH #### [facility] [address] [place] [address] Dr. Manoj Lala EO # 0.1 103/ul Normal 0.0-0.7 [facility] Comment on above: Performed By: #### C VDTBH #### [facility] [address] [place] [address] Dr. Manoj Lala Eosinophils/100 WBC (Bld) 1.3 % Normal 0.9-7.0 [facility] Comment on above: Performed By: #### C VDTBH #### [facility] [address] [place] [address] Dr. Manoj Lala Erythrocyte distribution width (RBC) [Ratio] 12.8 % Normal 11.0-15.0 [facility] Comment on above: Performed By: #### C VDTBH #### [facility] [address] [place] [address] Dr. Manoj Lala Hematocrit (Bld) [Volume fraction] 41.4 % Critically low 42.0-54.0 [facility] Comment on above: Performed By: #### C VDTBH #### [facility] [address] [place] [address] Dr. Manoj Lala Hemoglobin (Bld) [Mass/Vol] 13.4 g/dL Critically low 14.0-18.0 [facility] Comment on above: Performed By: #### C VDTBH #### [facility] [address] [place] [address] Dr. Manoj Lala IG # 0.03 10e3/ul Normal 0.00-0.03 [facility] Comment on above: Performed By: #### C VDTBH #### [facility] [address] [place] [address] Dr. Manoj Lala IG % 0.4 % Normal 0.0-0.5 [facility] Comment on above: Performed By: #### C VDTBH #### [facility] [address] [place] [address] Dr. Manoj Lala LYMPH # 1.9 103/ul Normal 1.2-3.8 [facility] Comment on above: Performed By: #### C VDTBH #### [facility] [address] [place] [address] Dr. Manoj Lala Lymphocytes/100 WBC (Bld) 25.1 % Normal 20.5-60.0 [facility] Comment on above: Performed By: #### C VDTBH #### [facility] [address] [place] [address] Dr. Manoj Lala MANUAL DIFF REQ NO Normal [facility] Comment on above: Performed By: #### C VDTBH #### [facility] [address] [place] [address] Dr. Manoj Lala MCH (RBC) [Entitic mass] 29.6 pg Normal 25.9-34.0 [facility] Comment on above: Performed By: #### C VDTBH #### [facility] [address] [place] [address] Dr. Manoj Lala MCHC (RBC) [Mass/Vol] 32.4 g/dL Normal 29.9-35.2 [facility] Comment on above: Performed By: #### C VDTBH #### [facility] [address] [place] [address] Dr. Manoj Lala MCV (RBC) [Entitic vol] 91.6 fL Normal 80.0-94.0 [facility] Comment on above: Performed By: #### C VDTBH #### [facility] [address] [place] [address] Dr. Manoj Lala MONO # 0.6 103/ul Normal 0.3-0.8 [facility] Comment on above: Performed By: #### C VDTBH #### [facility] [address] [place] [address] Dr. Manoj Lala Monocytes/100 WBC (Bld) 8.3 % Normal 1.7-12.0 [facility] Comment on above: Performed By: #### C VDTBH #### [facility] [address] [address] [address] Manoj Lala NEUT # 4.8 103/ul Normal 1.4-6.5 [facility] Comment on above: Performed By: #### C VDTBH #### [facility] [address] [address] [address] Manoj Lala Neutrophils/100 WBC (Bld) 64.4 % Normal 43.0-75.0 [facility] Comment on above: Performed By: #### C VDTBH #### [facility] [address] [place] [address] Dr. Manoj Lala Platelet mean volume (Bld) [Entitic vol] 9.9 fL Normal 9.5-13.5 [facility] Comment on above: Performed By: #### C VDTBH #### [facility] [address] [place] [address] Dr. Manoj Lala PLT 299 103/ul Normal 150-450 [facility] Comment on above: Performed By: #### C VDTBH #### [facility] [address] [place] [address] Dr. Manoj Lala RBC 4.52 106/ul Critically low 4.70-6.10 [facility] Comment on above: Performed By: #### C VDTBH #### [facility] [address] [place] [address] Dr. Manoj Lala WBC 7.5 103/ul Normal 4.0-11.0 [facility] Comment on above: Performed By: #### C VDTBH #### [facility] [address] [place] [address] Dr. Manoj Lala GLYCOHEMOGLOBIN A1Con 2021 ADA RECOMMENDATION SEE BELOW Normal [facility] Comment on above: Result Comment: ADA RECOMMENDED LIMIT 4.0 - 6.0 ADA THERAPEUTIC TARGET < 7.0 ACTION SUGGESTED > 7.0 Performed By: #### A 1C #### [facility] [address] [address] [address] Manoj Lala Glucose [Mass/Vol] 223 mg/dL Normal [facility] Comment on above: Performed By: #### A 1C #### [facility] [address] [address] [address] Manoj Lala HbA1c (Bld) [Mass fraction] 9.4 % Critically high 4.5-6.2 [facility] Comment on above: Performed By: #### A 1C #### [facility] [address] [address] [address] Manoj Lala LIPID PROFILEon 11-28-2021 CHOL-HDL RATIO NORM SEE BELOW Normal [facility] Comment on above: Result Comment: 3.3 - 4.4 LOW RISK 4.4 - 7.1 AVERAGE RISK 7.1 - 11.0 MODERATE RISK >11.0 HIGH RISK Performed By: #### C VDTBH #### [facility] [address] [place] [address] Dr. Mnaoj Lala Cholesterol [Mass/Vol] 134 mg/dL Normal <=200 [facility] Comment on above: Performed By: #### C VDTBH #### [facility] [address] [place] [address] Dr. Manoj Lala Cholesterol in HDL [Mass/Vol] 41 mg/dL Normal 40-60 [facility] Comment on above: Performed By: #### C VDTBH #### [facility] [address] [address] [address] Manoj Lala Cholesterol in LDL [Mass/Vol] 69.0 mg/dL Normal [facility] Comment on above: Performed By: #### C VDTBH #### [facility] [address] [address] [address] Manoj Lala Cholesterol.total/Ch olesterol in HDL [Mass ratio] 3.3 {ratio} Normal [facility] Comment on above: Performed By: #### C VDTBH #### [facility] [address] [place] [address] Dr. Manoj Lala HDL NORMAL > or = 60 mg/dl - LOW CARDIOVASCULAR RISK <40 mg/dl - HIGH CARDIOVASCULAR RISK Normal [facility] Comment on above: Performed By: #### C VDTBH #### [facility] [address] [address] [address] Manoj Lala LDL CALC NORMAL SEE BELOW Normal [facility] Comment on above: Result Comment: <100 mg/dl OPTIMAL 100 - 129 mg/dl NEAR OR ABOVE OPTIMAL 130 - 159 mg/dl BORDERLINE HIGH 160 - 189 mg/dl HIGH >190 mg/dl VERY HIGH Performed By: #### C VDTBH #### [facility] [address] [address] [address] Manoj Lala Triglyceride [Mass/Vol] 120 mg/dL Normal <=150 [facility] Comment on above: Performed By: #### C VDTBH #### [facility] [address] [place] [address] Dr. Manoj Lala VLDL CALC 24.0 mg/dL Normal [facility] Comment on above: Performed By: #### C VDTBH #### [facility] [address] [address] [address] Manoj Lala LIVER PROFILEon 11-28-2021 Albumin [Mass/Vol] 3.5 g/dL Normal 3.4-5.0 [facility] Comment on above: Performed By: #### C VDTBH #### [facility] [address] [place] [address] Dr. Manoj Lala Albumin/Globulin [Mass ratio] 0.9 {ratio} Normal [facility] Comment on above: Performed By: #### C VDTBH #### [facility] [address] [place] [address] Dr. Manoj Lala ALP [Catalytic activity/Vol] 78 U/L Normal 46-116 [facility] Comment on above: Performed By: #### C VDTBH #### [facility] [address] [address] [address] Manoj Lala ALT [Catalytic activity/Vol] 44 U/L Normal 16-63 [facility] Comment on above: Performed By: #### C VDTBH #### [facility] [address] [address] [address] Manoj Lala AST [Catalytic activity/Vol] 24 U/L Normal 15-37 [facility] Comment on above: Performed By: #### C VDTBH #### [facility] [address] [address] [address] Manoj Lala BILI, CONJUGATED 0.1 mg/dL Normal 0.0-0.2 [facility] Comment on above: Performed By: #### C VDTBH #### [facility] [address] [address] [address] Manoj Lala Bilirubin [Mass/Vol] 0.4 mg/dL Normal 0.2-1.0 [facility] Comment on above: Performed By: #### C VDTBH #### [facility] [address] [place] [address] Dr. Manoj Lala Globulin (S) [Mass/Vol] 3.7 g/dL Normal [facility] Comment on above: Performed By: #### C VDTBH #### [facility] [address] [place] [address] Dr. Manoj Lala Protein [Mass/Vol] 7.2 g/dL Normal 6.4-8.2 [facility] Comment on above: Performed By: #### C VDTBH #### [facility] [address] [place] [address] Dr. Manoj Lala MICROALBUMIN, RAND URon - mALB <1.3 Normal <=30.0 [facility] Comment on above: Performed By: #### M ALBR #### [facility] [address] [place] [address] Dr. Manoj Lala PROF CHEM 8 (BAS METB)on Anion gap [Moles/Vol] 11.1 mmol/L Normal [facility] Comment on above: Performed By: #### C VDTBH #### [facility] [address] [place] [address] Dr. Manoj Lala Calcium [Mass/Vol] 8.9 mg/dL Normal 8.5-10.1 [facility] Comment on above: Performed By: #### C VDTBH #### [facility] [address] [address] [address] Manoj Lala Chloride [Moles/Vol] 101 mmol/L Normal 98-107 [facility] Comment on above: Performed By: #### C VDTBH #### [facility] [address] [address] [address] Manoj Lala CO2 [Moles/Vol] 29.1 mmol/L Normal 21.0-32.0 [facility] Comment on above: Performed By: #### C VDTBH #### [facility] [address] [place] [address] Dr. Manoj Lala Creatinine [Mass/Vol] 1.09 mg/dL Normal 0.70-1.30 [facility] Comment on above: Performed By: #### C VDTBH #### [facility] [address] [place] [address] Dr. Manoj Lala EGFR-AF VINCENTIAN >60 Normal >=60 [facility] Comment on above: Performed By: #### C VDTBH #### [facility] [address] [place] [address] Dr. Manoj Lala EGFR-NON AF VINCENTIAN >60 Normal >=60 [facility] Comment on above: Performed By: #### C VDTBH #### [facility] [address] [place] [address] Dr. Manoj Lala Glucose [Mass/Vol] 464 mg/dL Critically high 74-106 [facility] Comment on above: Performed By: #### C VDTBH #### [facility] [address] [address] [address] Manoj Lala Potassium [Moles/Vol] 4.2 mmol/L Normal 3.5-5.1 [facility] Comment on above: Performed By: #### C VDTBH #### [facility] [address] [place] [address] Dr. Manoj Lala Sodium [Moles/Vol] 137 mmol/L Normal 136-145 [facility] Comment on above: Performed By: #### C VDTBH #### [facility] [address] [address] [address] Manoj Lala Urea nitrogen [Mass/Vol] 19.0 mg/dL Critically high 7.0-18.0 [facility] Comment on above: Performed By: #### C VDTBH #### [facility] [address] [place] [address] Dr. Manoj Lala Urea nitrogen/Creatinine [Mass ratio] 17.4 mg/mg Normal [facility] Comment on above: Performed By: #### C VDTBH #### [facility] [address] [place] [address] Dr. Manoj Lala TSHon 11-28-2021 TSH 1.981 uIU/mL Normal 0.358-3.740 [facility] Comment on above: Performed By: #### C VDTBH #### [facility] [address] [place] [address] Dr. Manoj Lala TSH RANGE SEE BELOW Normal [facility] Comment on above: Result Comment: <0.3 4 UIU/ml HYPERTHYROID 0.34-5.60 UIU/ml EUTHYROID >5.60 UIU/ml HYPOTHYROID Performed By: #### C VDTBH #### [facility] [address] [place] [address] Dr. Manoj Lala Aerobic Cultureon 06-06-2021 Aerobic Culture SITE: LEFT TOE ORGANISM: Staphylococcus aureus (O:STAAUR) Quantity of Growth Heavy Growth ORGANISM: Enterococcus faecalis (O:ENTFAC) Quantity of Growth Heavy Growth SITE: LEFT TOE ORGANISM: Bacteroides fragilis (O:BACFRA) Comments Sent to [facility] for Testing Quantity of Growth Moderate Growth Minimum inhibitory concentration Ampicillin Sulbact 16 Intermediate Metronidazole 0.5 Susceptible Ertapenem 4 Susceptible Bacteroides spp. are intrinsically resistant to ampicillin, penicillin, and aminoglycosides. Testing performed at [facility] SITE: LEFT TOE Gram Stain Result [...] RESISTANT TO ALL B-LACTAM DRUGS. PERFORMED BY: [place] [address] PATHOLOGIST [employer] DEVELOPER MARIELLA KWOK M.D. Normal [facility] Comment on above: Performed By: #### G S, AERC #### [address] Gram Stainon 06-06-2021 Microscopic observation Gram stain Nom (Unsp spec) SITE: LEFT TOE Gram Stain Result Rare White Blood Cells Rare Gram Positive Cocci PERFORMED BY: [place] [address] PATHOLOGIST [employer] DEVELOPER MARIELLA KWOK M.D. [facility] Comment on above: Performed By: #### G S, AERC #### [address] Vital Signs Date Time Vital Sign Value Performing Clinician Facility 02-14-2024 15:30-0400 Blood Pressure Location HAYDEE MECHE [facility] 02-14-2024 15:30-0400 Diastolic blood pressure 77 mm[Hg] HAYDEE MECHE [facility] 02-14-2024 15:30-0400 Heart rate 80 /min HAYDEE MECHE [facility] 02-14-2024 15:30-0400 Respiratory rate 18 /min HAYDEE MECHE [facility] 02-14-2024 15:30-0400 Systolic blood pressure 133 mm[Hg] HAYDEE MECHE [facility] 12-27-2023 13:57-0400 Blood Pressure Location HAYDEE MECHE [facility] 12-27-2023 13:57-0400 Diastolic blood pressure 86 mm[Hg] HAYDEE MECHE [facility] 12-27-2023 13:57-0400 Heart rate 85 /min HAYDEE MECHE [facility] 12-27-2023 13:57-0400 Systolic blood pressure 149 mm[Hg] HAYDEE MECHE [facility] 08-02-2023 14:48-0500 Body height 180.3 cm Jay Tai MD Work Phone: [facility] 08-02-2023 14:48-0500 Body mass index (BMI) [Ratio] 28.59 kg/m2 Jay Tai MD Work Phone: [facility] 08-02-2023 14:48-0500 Body temperature 96.91 [degF] Jay Tai MD Work Phone: [facility] 08-02-2023 14:48-0500 Body weight 92.99 kg Jay Tai MD Work Phone: [facility] 08-02-2023 14:48-0500 Diastolic blood pressure 70 mm[Hg] Jay Tai MD Work Phone: [facility] 08-02-2023 14:48-0500 Heart rate 90 /min Jay Tai MD Work Phone: [facility] 08-02-2023 14:48-0500 SaO2% (BldA) [Mass fraction] 100 % Jay Tai MD Work Phone: [facility] 08-02-2023 14:48-0500 Systolic blood pressure 128 mm[Hg] Jay Tai MD Work Phone: [facility] 05-30-2023 17:20-0500 Body height 180.34 cm Sultana Benson Other [employer] Other 05-30-2023 17:20-0500 Body mass index (BMI) [Ratio] 28.59 kg/m2 Sultana Benson Other [employer] Other 05-30-2023 17:20-0500 Body temperature 99.1 [degF] Sultana Benson Other [employer] Other 05-30-2023 17:20-0500 Body weight 92.99 kg Sultana Benson Other [employer] Other 05-30-2023 17:20-0500 Diastolic blood pressure 72 mm[Hg] Sultana Benson Other [employer] Other 05-30-2023 17:20-0500 Respiratory rate 18 /min Sultana Benson Other [employer] Other 05-30-2023 17:20-0500 SaO2% (BldA) [Mass fraction] 96 % Sultana Benson Other [employer] Other 05-30-2023 17:20-0500 Systolic blood pressure 118 mm[Hg] Sultana Benson Other [employer] Other 08-18-2022 09:15-0500 Body height 180.34 cm Martha Delgado Other [employer] Other 08-18-2022 09:15-0500 Body mass index (BMI) [Ratio] 27.89 kg/m2 Martha Delgado Other [employer] Other 08-18-2022 09:15-0500 Body temperature 97.7 [degF] Martha Delgado Other [employer] Other 08-18-2022 09:15-0500 Body weight 90.72 kg Martha Delgado Other [employer] Other 08-18-2022 09:15-0500 Respiratory rate 18 /min Martha Delgado Other [employer] Other 08-18-2022 09:15-0500 SaO2% (BldA) [Mass fraction] 99 % Martha Delgado Other [employer] Other 04-19-2022 15:25-0400 Body height 180.34 cm Sultana Benson Other [employer] Other 04-19-2022 15:25-0400 Body mass index (BMI) [Ratio] 27.89 kg/m2 Sultana Alarconmond Other [employer] Other 04-19-2022 15:25-0400 Body temperature 98.2 [degF] Sultana Benson Other [employer] Other 04-19-2022 15:25-0400 Body weight 90.72 kg Sultana Benson Other [employer] Other 04-19-2022 15:25-0400 Diastolic blood pressure 73 mm[Hg] Sultana Benson Other [employer] Other 04-19-2022 15:25-0400 Respiratory rate 18 /min Sultana Benson Other [employer] Other 04-19-2022 15:25-0400 SaO2% (BldA) [Mass fraction] 97 % Sultana Benson Other [employer] Other 04-19-2022 15:25-0400 Systolic blood pressure 118 mm[Hg] Sultana Alarconmond Other [employer] Other 06-06-2021 11:05-0500 Body height 180.34 cm Martha Granados Other [employer] Other 06-06-2021 11:05-0500 Body mass index (BMI) [Ratio] 31.8 kg/m2 Martha Granados Other [employer] Other 06-06-2021 11:05-0500 Body temperature 96.9 [degF] Martha Ginty Other [employer] Other 06-06-2021 11:05-0500 Body weight 103.42 kg Martha Ginty Other [employer] Other 06-06-2021 11:05-0500 Diastolic blood pressure 80 mm[Hg] Martha Ginty Other [employer] Other 06-06-2021 11:05-0500 Respiratory rate 18 /min Martha Ginty Other [employer] Other 06-06-2021 11:05-0500 SaO2% (BldA) [Mass fraction] 99 % Martha Ginty Other [employer] Other 06-06-2021 11:05-0500 Systolic blood pressure 144 mm[Hg] Martha Ginty Other [employer] Other 03-30-2021 18:20-0400 Body height 180.34 cm Sultana Kelley Other [employer] Other 03-30-2021 18:20-0400 Body mass index (BMI) [Ratio] 31.8 kg/m2 Sultana Kelley Other [employer] Other 03-30-2021 18:20-0400 Body temperature 97.7 [degF] Sultana Kelley Other [employer] Other 03-30-2021 18:20-0400 Body weight 103.42 kg Sultana Benson Other [employer] Other 03-30-2021 18:20-0400 Diastolic blood pressure 82 mm[Hg] Sultana Benson Other [employer] Other 03-30-2021 18:20-0400 Respiratory rate 18 /min Sultana Benson Other [employer] Other 03-30-2021 18:20-0400 SaO2% (BldA) [Mass fraction] 95 % Sultana Benson Other [employer] Other 03-30-2021 18:20-0400 Systolic blood pressure 131 mm[Hg] Sultana Benson Other [employer] Other Encounters Encounter Date Encounter Type Care Provider Facility Start: 03-18-2024 End: 03-18-2024 ambulatory HAYDEE E MECHE Facility:[facility] Start: 03-11-2024 End: 03-11-2024 ambulatory JAY TAI Not Available Start: 02-14-2024 End: 02-14-2024 ambulatory HAYDEE E MECHE Facility:[facility] Start: 02-14-2024 End: 02-14-2024 Patient encounter procedure HAYDEE KIMRY [facility] Start: 12-27-2023 End: 12-27-2023 ambulatory HAYDEE E MECHE Facility:[facility] Start: 12-27-2023 End: 12-27-2023 Patient encounter procedure HAYDEE E MECHE [facility] Start: 11-16-2023 ambulatory HAYDEE MECHE Facility :[facility] Start: 11-15-2023 End: 11-15-2023 ambulatory JAY TAI Not Available Start: 08-02-2023 End: 08-02-2023 ambulatory JAY TAI Not Available Start: 08-02-2023 End: 08-02-2023 Office outpatient visit 15 minutes Jay Tai MD Work Phone: [facility] Comment on above: Type 2 diabetes kojo itus with hyperglycemia, with long-term current use of insulin ([facility]) (Primary Dx); Erectile dysfunction of organic origin; Type 2 diabetes mellitus with other specified complication, with long-term current use of insulin ([facility]); Type 2 diabetes mellitus with right eye affected by mild nonproliferative retinopathy without macular edema, with long-term current use of insulin ([facility]) Start: 08-02-2023 Ingrid Tai MD Work Phone: [facility] Start: 08-02-[facility]23 [facility] Work Phone: [facility] Start: 06-06-2023 End: 06-06-2023 ambulatory JAY TAI Not Available Start: 05-30-2023 End: 05-30-2023 ambulatory Sultana Benson Other [employer] Other Start: 05-30-2023 Office outpatient vi sit 15 minutes Sultana Benson [facility] Start: 10-03-2022 End: 10-04-[address] JAY TAI Facility:[facility] Start: 08-22-[address] JAY TAI Facil ity:[facility] Start: 08-18-2022 End: 08-18-2022 ambulatory Martha Delgado Other [employer] Other Start: 08-18-2022 Office outpatient vi sit 15 minutes Martha Delgado [facility] Start: 07-31-2022 End: 08-01-2022 ambulatory PACHECO Rivera [facility] Facility:[facility] Start: 07-14-2022 End: 07-15-2022 ambulatory PACHECO Rivera [facility] Facility:[facility] Start: 07-03-2022 End: 07-04-2022 ambulatory PACHECO Miguel [facility] Facility:[facility] Start: 06-26-2022 End: 06-26-[address] JAY TAI Facility:[facility] Start: 06-25-2022 Encounter for preprocedural cardiovascular examination PACHECO Miguel [facility] Start: 06-25-2022 Encounter for preprocedural laboratory examination [facility] Miguel [facility] Start: 06-22-2022 End: 06-23-[address] JAY TAI Facility:[facility] Start: 06-22-2022 End: 06-23-2022 Encounter for preprocedural laboratory examination DR JAY TAI Facility:[facility] Start: 06-20-2022 End: 06-21-[address] JAY TAI Facility:[facility] Start: 06-07-2022 End: 06-08-[address] JAY TAI Facility:[facility] Start: 06-02-2022 End: 06-03-2022 ambulatory PACHECO HART Facility:[facility] Start: 05-19-2022 End: 05-20-2022 ambulatory PACHECO HART Facility:[facility] Start: 05-12-2022 End: 05-13-2022 [facility] Start: 05-02-2022 End: 05-03-2022 ambulatory [facility] Facility:[facility] Start: 05-01-2022 End: 05-02-2022 ambulatory [facility] Facility:[facility] Start: 04-19-2022 End: 04-19-2022 ambulatory Sultana Benson Other [employer] Other Start: 04-19-2022 Office outpatient vi sit 15 minutes Sultana Benson [facility] Start: 12-01-2021 Encounter for genera l adult medical examination without abnormal findings DR JAY TAI [facility] Start: 11-28-2021 End: 11-29-[address] JAY TAI Facility:[facility] Start: 11-28-2021 End: 11-29-2021 Encounter for general adult medical examination without abnormal findings DR JAY TAI Facility:[facility] Start: 06-06-2021 End: 06-06-2021 ambulatory Martha Granados Other [place] [employer] Other Start: 06-06-2021 Office outpatient vi sit 15 minutes Martha Granados [facility] Start: 03-30-2021 Office outpatient vi sit 15 minutes Sultana Benson [facility] Start: 08-07-2017 Ambulatory PHYSICIAN [facility] Procedures Date Procedure Procedure Detail Performing Clinician Start: 11-28-2021 PSA screening PACHECO GROSS Comment on above: Performed By: #### P [facility] #### [facility] [address] [place] [address] Dr. Manoj Lala Plan of Treatment Date Care Activity Detail Author Start: 06-06-2024 Screening for malign ant neoplasm of colon Colorectal Cancer Screening [facility] Comment on above: Postponed from 03/24 (Patient Refused) Start: 03-30-2024 Urine screening for protein Diabetes: Urine Protein Screening [facility] Start: 10-29-2023 End: 10-29-2023 Patient encounter procedure 10/29/2023 3:45 PM EDT Office Visit [facility] [address] [place] [phone] Jay Tai MD [address] [place] [phone] [facility] Start: 08-02-2023 End: 08-02-2024 Hemoglobin A1c/Hemoglobin.total in Blood Hemoglobin A1c Lab Routine Type 2 diabetes mellitus with hyperglycemia, with long-term current use of insulin ([facility]) Expected: 08/02/2023 (Approximate), Expires: 08/02/2024 [facility] Work Phone: Comment on above: Expected: 08/02/2023 (Approximate), Expires: 08/02/2024 Start: 06-30-2023 Hemoglobin A1c measurement Diabetes: Hemoglobin A1C [facility] Start: 02-16-2023 Influenza vaccination Influenza Vacc ine (#1) [facility] Start: 10-23-2019 Glaucoma screening Diabetes: R etinopathy Screening [facility] Start: 1960 Screening for malign ant neoplasm of colon [facility] Immunizations Immunization Date Immunization Notes Care Provider Ez petty 05-09-2022 influenza virus vacc ine, unspecified formulation Jay Tai MD Work Phone: [facility] Payers Date Payer Category Payer Unknown BCBS BCBS xxxxxx [id number] 2018-Present [phone] [address] [place] [address] [id number] 1962 Unknown [id number] 2.16.840.1.713334.3.579.2. 593 1962 Unknown [id number] 2.16.840.1.815568.3.579.2. 593 1962 Unknown [id number] 2.16.840.1.779595.3.579.2. 593 1962 Unknown [id number] 2.16.840.1.749435.3.579.2. 593 1962 Unknown [id number] 2.16.840.1.917480.3.579.2. 593 1962 Unknown [id number] 2.16.840.1.919485.3.579.2. 593 1962 Unknown [id number] 2.16.840.1.959641.3.579.2. 593 1962 Unknown [id number] 2.16.840.1.924533.3.579.2. 593 1962 Unknown [id number] 2.16.840.1.769888.3.579.2. 593 1962 Unknown [id number] 2.16.840.1.577117.3.579.2. 593 1962 Unknown [id number] 2.16.840.1.448785.3.579.2. 593 1962 Unknown [id number] 2.16.840.1.984427.3.579.2. 593 1962 Unknown [id number] 2.16.840.1.623933.3.579.2. 593 1962 Unknown [id number] 2.16.840.1.585587.3.579.2. 593 1962 Unknown [id number] 2.16.840.1.768657.3.579.2. 593 1962 Unknown [id number] 2.16.840.1.587144.3.579.2. 1259 1962 Unknown [id number] 2.16.840.1.789337.3.579.2. 1259 1962 Unknown [id number] 2.16.840.1.300686.3.579.2. 1259 1962 Unknown [id number] 2.16.840.1.984220.3.579.2. 1259 1962 Unknown [id number] 2.16.840.1.035460.3.579.2. 727 1962 Unknown [id number] 2.16.840.1.616655.3.579.2. 727 1962 Unknown [id number] 2.16.840.1.626784.3.579.2. 727 1962 Unknown [id number] 2.16.840.1.689736.3.579.2. 727 1959 [facility] TO92 [id number] 2.16.840.1.866965.19 Social History Date Type Detail Facility Start: 06-05-2023 End: 08-02-2023 Sex Assigned At [facility] Start: 07-11-2023 End: 02-14-2024 Tobacco smoking status NEIS Never smoked tobacco [facility] Start: 07-11-2023 Tobacco use and exposure Smokeless t obacco non-user [facility] Start: 07-11-2023 End: 08-02-2023 Alcohol intake Lifetime non-drinker (finding) [facility] Start: 06-05-2023 End: 08-02-2023 History of Social function [facility] Within the last year , have you been afraid of your partner or ex-partner? Patient declined [facility] Are you now , , , , never or living with a partner? [facility] Do you feel stress - tense, restless, nervous, or anxious, or unable to sleep at night because your mind is troubled all the time - these days [OSQ] Not at all [facility] Start: 07-11-2023 Tobacco Comment Uses chewing tobacco [facility] Start: 06-22-2023 Alcohol Comment caffeine intak e : coffee, soda [facility] Start: 1960 Sex Assigned At Not on file [facility] History of tobacco use Passive smoker [facility] Start: 08-02-2023 Tobacco use and exposure User of smo keless tobacco [facility] History of tobacco use Snuff User [facility] Medical Equipment Procedure Code Equipment Code Equipment Origin al Text Equipment Identifier Dates USE 1 PEN NEEDLE DIRECTED [id number] Start: 04-29-2023 Functional Status Date Assessment Result Facility 02-14-2024 Functional Status N/A [facility] 12-27-2023 Functional Status N/A [facility] Clinical Notes 03-30-2021 to 03-18-2024 Jay Tai MD - 08/02/2023 3:32 PM Desire Tai MD - 08/02/2023 3:31 PM Desire Tai MD - 08/02/2023 2:45 PM EST Note Date & Type Note Facility 03-18-2024 Note Patient Education Urology Erectile Dysfunction Erectile [...] these instructions at home: Medicines ? Take zelo-owv-ufqppvu and prescription medicines only as told by [...] or tobacco. These (more content not included)... [facility] 02-14-2024 Hospital Discharg e instructions Patient Education [...] Follow these instructions at home: Medicines Take xgup-zkp-qneutjn and prescription medicines only as told by [...] provider. Document Revised: 08/31/2021 Document Reviewed: 08/31/2021 SMR SITE Patient Education 2022 [employer]. Follow Up Care 12/27/2023 14:35:32 With:HAYDEE MCGREGOR PA-C, URL Address: [address] [place] [place] [address] [phone] When: Unknown Comments:1 month f/u for [facility] teaching [facility] 02-14-2024 Note Patient Education Urology Erectile Dysfunction Erectile [...] these instructions at home: Medicines ? Take muru-hyr-snzxxvp and prescription medicines only as told by [...] or tobacco. These (more content not included)... [facility] 12-27-2023 Hospital Discharg e instructions Patient [...] Follow these instructions at home: Medicines Take vnvd-kic-khwfzlt and prescription medicines only as told by [...] provider. Document Revised: 08/31/2021 Document Reviewed: 08/31/2021 [employer] Patient Education 2022 [employer]. Follow Up Care 11/16/2023 13:48:14 With:MECHE ALFONSO, HAYDEE Pennington, URL Address: [address] [place] [address] When:3 months [facility] 12-27-2023 Note Patient Education Urology Erectile [...] these instructions at home: Medicines ? Take spfy-tmv-hbivgjs and prescription medicines only as told by [...] or tobacco. These (more content not included)... [facility] 08-02-2023 History of Presen t illness Narrative Associated Problem(s): Type 2 diabetes mellitus with hyperglycemia, with long-term current use of insulin ([facility]) Not checking BS and due for [...] hyperglycemia, with long-term current use of insulin ([facility]) - Primary Not checking BS and due for A1C. Need to check TID. Stick to ADA diet and limit carbs. Relevant Orders Hemoglobin A1c documented in this encounter [facility] 05-30-2023 Evaluation note Encounter Date Diagnosis [...] no improvement in 2 to 3 days [employer] Other 03-03-2023 Evaluation note* Encounter Date Diagnosis [...] understanding and is agreeable to treatment plan [employer] Other 01-09-2023 NotePROCEDURE: XR FOOT RT 2V [...] Electronically authenticated by: DENNY SHELDON Date: 2022-06-26 15:48[facility]01-04-2023 NotePROCEDURE: XR FOOT RT MIN 3 VIEWS [...] Electronically authenticated by: DENNY SHELDON Date: 2022-06-21 11:19[facility]11-15-2022 NotePROCEDURE: XR FOOT RT MIN 3 VIEWS [...] Electronically authenticated by: NICKI CABEZAS Date: 2022-05-02 07:41[facility]11-02-2022 Evaluation note* Encounter Date Diagnosis [...] Diabetic foot u lcer material was printed [employer] Other 12-20-2021 Evaluation note* Encounter Date Diagnosis Assessment Notes Treatment Notes Treatment Clinical Notes May, Type 2 diabetes mellitus without complication, unspecified whether chcf insulin use (ICD-10 - E11.9) Needs follow [...] understanding and is agreeable with treatment plan [employer] Other 10-13-2021 Evaluation note* Encounter Date Diagnosis [...] 2 diabetes mellitus without complication, unspecified whether press tender long goods insulin use (ICD-10 - E11.9) [employer] Other Evaluation + Plan note Future Appointments Appointment Date:02/14/2024 03:00:00 PM Scheduled Provider:HAYDEE MCGREGOR PA-C Location:[facility] Appointment Type:URO Office Visit [facility] evaluation + Plan note Future Appointments Appointment Date:03/18/2024 03:00:00 PM Scheduled Provider:HUGO Marks APRN, [place] [facility] Location:[facility] Appointment Type:URO Office Visit [facility] Simple-Fill evaluation note* Diagnosis Type 2 diabetes mellitus with other specified complication, with long-term current use of insulin ([facility]) 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 [facility] - [facility]* Type Description Date Medical History type I diabetes [employer] Other History general Narrative - Reported* Type Description Date Medical History type I diabetes Surgical History toe surgery 2022 [employer] Other Hospital course Narrative No data available for this section [facility] progress note No data available for this section [facility] Simple-Fill Summary Purpose Family History No Family History Records FoundNo Family History Records FoundNo Family History Records Found No data available for this section No data available for this section No Family History Records FoundNo Family History Records Found Advance Directives No Advanced Directives Records FoundNo Advanced Directives Records FoundNo Advanced Directives Records FoundNo Advanced Directives Records FoundNo Advanced Directives Records Found Reason for Referral Specialty Diagnoses / Procedures Referred By Contkyle t Referred To Contact Diagnoses Erectile dysfunction of organic origin Jay Tai MD [address] [place] [address] Referral ID Status Reason Start Date Expiration Date Visits Re quested Visits Authorized [id number] Closed 1 1 Additional Source Comments (unrecognized sect ion and content) No Status Records FoundNo Status Records FoundNo Status Records FoundNo Status Records FoundNo Status Records Found INFORMATION SOURCE (unrecogn ized section and content) DATE CREATED AUTHOR 12/07/2017 [facility] DATE CREATED AUTHOR AUTHOR'S ORGANIZ ATION 06/17/2021 [facility] DATE CREATED AUTHOR AUTHOR'S ORGANIZ ATION 11/01/2022 [facility] DATE CREATED AUTHOR AUTHOR'S ORGANIZ ATION 03/14/2024 [facility] EPIC DATE CREATED AUTHOR AUTHOR'S ORGANIZ ATION 03/19/2024 [facility] REASON FOR VISIT (unrecogniz ed section and content) Reason Comments Follow-up Care Teams (unrecognized sec tion and content) Construction Lineman Relationship Specialty Start Date End Date Jay Tai MD [address] [place] [phone] PCP - General Family Medicine 08/02/23 [employer] Relationship Specialty Start Date End Date Jay Tai MD [address] [place] [phone] PCP - General Family Medicine 08/02/23 FOR [...] BE BASED ON THE PRIMARY CLINICAL RECORDS. [facility] [employer] [facility]. provides no warranty or guarantee of the accuracy or completeness of information in this document.
== END 2024-03-20 01:23 | disposition home or self-care (01) ==
LOC: ER 01:18
PROVIDERS: Emergency Provider Emergency Medicine; PCP Family Medicine
DX: N52.9 Male erectile dysfunction, unspecified (principal)
CPT/HCPCS: 99281

== ENCOUNTER 2024-09-09 15:42 | Outpatient (OUT) | payer BC, SELFPAY ==
[2024-09-09 16:55] LABS: Basophils Percent Auto 0.5 % (0.2-2.0); Eosinophils Absolute Auto 0.1 10^3/uL (0.0-0.7); Eosinophils Percent Auto 1.5 % (0.9-7.0); Hematocrit 42.3 % (42.0-54.0); Hemoglobin 13.8 g/dL (14.0-18.0); Immature Granulocytes Abs Auto 0.02 10^3/uL (0.00-0.03); Immature Granulocytes Pct Auto 0.3 % (0.0-0.5); Lymphocytes Percent Auto 25.5 % (20.5-60.0); Mean Corpuscular HGB Conc 32.6 g/dL (29.9-35.2); Mean Corpuscular Hemoglobin 29.2 pg (25.9-34.0); Mean Corpuscular Volume 89.4 fL (80.0-94.0); Mean Platelet Volume 9.3 fL (9.5-13.5); Monocytes Absolute Auto 0.7 10^3/uL (0.3-0.8); Monocytes Percent Auto 8.6 % (1.7-12.0); Neutrophils Percent Auto 63.6 % (43.0-75.0); Platelet Count 252 10^3/uL (150-450); Red Blood Count 4.73 10^6/uL (4.70-6.10); Red Cell Distribution Width 13.2 % (11.0-15.0); White Blood Count 7.8 10^3/uL (4.0-11.0)
[2024-09-09 17:24] LABS: Prostate Specific Antigen Scrn 1.11 ng/mL (<=4.00)
[2024-09-09 17:35] LABS: Estimated Average Glucose 174 mg/dL; Glycohemoglobin A1C 7.7 % (4.5-6.2)
[2024-09-09 18:11] LABS: Alanine Aminotransferase 29 U/L (16-63); Albumin Level 3.6 g/dL (3.4-5.0); Alkaline Phosphatase 77 U/L (46-116); Anion Gap 14.3; Aspartate Amino Transferase 25 U/L (15-37); BUN Creatinine Ratio 22.3; Bilirubin Direct 0.1 mg/dL (0.0-0.2); Bilirubin Total 0.2 mg/dL (0.2-1.0); Calcium 8.7 mg/dL (8.5-10.1); Carbon Dioxide 23.9 mmol/L (21.0-32.0); Chloride 105 mmol/L (98-107); Chol HDL Ratio 4.7; Cholesterol 199 mg/dL (<=200); Estimated GFR (African America >60 (>=60 mL/min/1.73m^2); Estimated GFR (Non-African Ame 56 (>=60 mL/min/1.73m^2); Globulin 3.6 g/dL; Glucose 197 mg/dL (74-106); HDL Cholesterol 42 mg/dL (40-60); LDL Cholesterol Calculated 130.4 mg/dL; Potassium 4.2 mmol/L (3.5-5.1); Sodium 139 mmol/L (136-145); Thyroid Stimulating Hormone 2.658 uIU/mL (0.358-3.740); Total Protein 7.2 g/dL (6.4-8.2); Triglycerides 133 mg/dL (<=150); VLDL CHOLESTEROL 26.6 mg/dL
[2024-09-09 18:42] LABS: Creatinine Urine Random 81.16 mg/dL (20.00-300.00); Microalbumin Urine Random <1.3 mg/dL (<=30.0)
== END 2024-09-09 15:43 | disposition home or self-care (01) ==
LOC: LAB 15:43
PROVIDERS: PCP Family Medicine; Visit Provider Family Medicine
DX: Z00.00 Encounter for general adult medical examination without abnormal findings (principal); E11.65 Type 2 diabetes mellitus with hyperglycemia; Z79.4 Long term (current) use of insulin
CPT/HCPCS: 36415; 80048; 80061; 80076; 82043; 82570; 83036; 84443; 85025; G0103

== ENCOUNTER 2025-03-16 15:36 | Outpatient (OUT) | payer BC, SELFPAY ==
--- OUTSIDE RECORDS SUMMARY | 2024-09-16 15:27 | XMS_ITS ---
Author Name Auto Generated Organization [facility] Care Team Providers Care Interlacer Name Role Phone ABIDAUNIQUE Attending Unavailable ROSY MCGREGOR Attending Unavailable PROBLEMS No Problem Records Found PROCEDURES No Procedure Records Found RESULTS UROLOGY OFFICE/CLINIC NOTE Observed: 06/2023 2:40 PM Status: F Source: [facility] Urology Office/Clinic Note Chief Complaint Here for [...] E&M of Est. Patient Low 20-29 Min [id number] Follow-up With When Contact Information ROSY MCGREGOR PA-C, URL Within 1 year Additional Instructions: Patient Education Erectile Dysfunction Problem List/Past Medical History Ongoing Diabetes mellitus Dyslipidemia ED (erectile dysfunction) Multiple pulmonary nodules Historical No qualifying data Medications HumuLIN 70/30 KwikPen 70 units-30 units/mL subcutaneous suspension Jardiance 25 mg oral tablet papaverine-phentolamine 30 mg-1 mg/mL injectable solution Allergies No Known Medication Allergies Social History Tobacco - Denies Tobacco Use, 02/14/2024 Never (less than 100 in lifetime) Tobacco Use:., 03/18/2024 Family History Diabetes: Father. Result Comment: Electronical ly Signed By: ROSY MCGREGOR PA-C\.br\Date and Time Signed: 03/18/24 14:41 EDT PATIENT EDUCATION Observed: 03/18/2024 2:40 PM Status: F Source: [facility] Patient Education Urology Erectile Dysfunction Erectile dysfunction [...] these instructions at home: Medicines ? Take tjlc-gme-tsetbkd and prescription medicines only as told by [...] help quitting, ask your health care provider. ? Before using a vacuum pump, read the instructions that come with the pump and discuss any questions with your health care provider. ? Keep all follow-up visits. This is important. Contact a health care provider if: ? You feel nauseous. ? You are vomiting. ? You get sudden headaches while taking ED medicines. ? You have any concerns about your sexual health. Get help right away if: ? You are taking oral or injectable medicines and you have an erection that lasts longer than 4 hours. If your health care provider is unavailable, go to the nearest emergency room for evaluation. An erection that lasts much longer than 4 hours can result in permanent damage to your penis. ? You have severe pain in your groin or abdomen. ? You develop redness or severe swelling of your penis. ? You have redness spreading at your groin or lower abdomen. ? You are unable to urinate. ? You experience chest pain or a rapid heartbeat (palpitations) after taking oral medicines. These symptoms may represent a serious problem that is an emergency. Do not wait to see if the symptoms will go away. Get medical help right away. Call your local emergency services (911 in the [place] Do not drive yourself to the hospital. Summary ? Erectile dysfunction (ED) is the inability to get or keep an erection during sexual intercourse. ? This condition is diagnosed based on a physical exam, your symptoms, and tests to determine the cause. Treatment varies depending on the cause and may include medicines, hormone therapy, surgery, or a vacuum pump. ? You may need follow-up visits to make sure that you are using your medicines or devices correctly. ? Get help right away if you are taking or injecting medicines and you have an erection that lasts longer than 4 hours. This information is not intended to replace advice given to you by your health care provider. Make sure you discuss any questions you have with your health care provider. Document Revised: 08/31/2021 Document Reviewed: 08/31/2021 [employer] Patient Education ? 2023 [employer] ALLERGIES DATE TYPE / CODE NAME / CODE REACTION SEVERITY SOURCE Miscellaneous Allergy/[id number](SNOMED CT) No Known Medication Allergies [facility] ENCOUNTERS ADMIT/DISCHARGE ACCOUNT NUMBER ADMITTING ENCOUNTER CLASS LOCATION SOURCE 09/16/2024/ 5 [id number] Ambulatory Building:[facility] EPIC 03/18/2024/ 4 [id number] Ambulatory [place] : Exam 2 [facility] PAYERS ENCOUNTER GUARANTOR PAYER SUBSCRIBER SOURCE 09/16/2024 JUAN C ADORNOTODOB: CO [address] [place] [id number]: () Primary Insurance:BCBSPo licy Number: [id number] ctive Date:2018-06-18 JUAN C COMMARATODOB: [id number] MD [address] [place] [id number] [facility] 03/18/2024 JUAN C COMMARATODOB: [id number] [facility] 270Tel: (HP) Primary Insurance:[employer] Policy Number: [id number] ctive Date:2024-02-13[id number] [place] [id number]: JUAN C DONOHUE [facility]
== END 2025-03-16 15:37 | disposition home or self-care (01) ==
LOC: LAB 15:37
PROVIDERS: PCP Family Medicine; Visit Provider Family Medicine
DX: E11.65 Type 2 diabetes mellitus with hyperglycemia (principal)
CPT/HCPCS: 36415; 83036